=== PATIENT | female | born 1975 | race Caucasian/White ===

== ENCOUNTER → 2017-03-20 | Outpatient (CLI) | payer OTHER ==
[~2017-03-20] MED LIST: ACET-2708 PO; ALPR-460 PO; AZIT-17 PO; CELE-1 PO; CETI10CA8 PO; CHOL200022 PO; CHOL200038 PO; CHOL500025 PO; CIPR-214 PO; CIPR-345 PO; CITA-139 PO; CITA-141 PO; CYCL10TA29 PO; DOCU-416 PO; DULO30CA35 PO; DULO60CA56 PO; ESC10 PO; FEXO1TAB63 PO; FLUT16SP19 NS; HYDR-4309 PO; IBUP600T22 PO; INSU100I10 SQ; INSU100I30 SQ; LEVO50TA86 PO; LEVO75TA73 PO; LISI-362 PO; LORA10CA3 PO; LOSA25TA50 PO; MELO-205 PO; METF-420 PO; NAPR500T75 PO; NITR-105 PO; ONDA4TAB97 PO; OXYB15TA17 PO; OXYC-865 PO; PEN1DIS. MC; PER PO; PHEN100T27 PO; PREG100C44 PO; PREG50CA48 PO; SULF-198 PO; TAMS0.4C25 PO; TRAM-420 PO; TRIA15OI20 TP
[2017-03-20 08:47] LABS: PLATELET COUNT, AUTOMATED 226 K/uL (150-450)
[2017-03-20 10:24] LABS: LDL CHOLESTEROL 126 mg/dl
== END ==
LOC: LAB 07:52
PROVIDERS: ATTEND Internal Medicine
DX: I10 Essential (primary) hypertension (principal); R74.8 Abnormal levels of other serum enzymes; E11.9 Type 2 diabetes mellitus without complications; Z79.4 Long term (current) use of insulin; R53.81 Other malaise; L40.9 Psoriasis, unspecified; R10.11 Right upper quadrant pain
CPT/HCPCS: 36415; 81001; 82040; 82150; 82247; 82310; 82374; 82435; 82465; 82565; 82947; 83036; 83690; 83718; 84075; 84132; 84155; 84295; 84439; 84443; 84450; 84460; 84478; 84481; 84520; 84550; 85025; 85651; 86140

== ENCOUNTER 2017-03-28 19:08 | Emergency (ER) | payer OTHER ==
[~2017-03-28] VITALS: Ht 162.6 cm; Wt 113.4 kg
[2017-03-28] MEDS ORDERED: ONDANSETRON 4 MG/2 ML VIAL IVP ONE (19:45)
--- NOTE | 2017-03-28 19:49 | ER Report ---
History and Physical Time Seen By MD: 19:15 Hx. of Stated Complaint: ATE AT [employer] FOR DINNER. WALKED AROUND [facility]. WENT TO BATHROOM THERE. RIGHT SIDED PAIN. PT REPORTS SHE HAS NO GALLBLADDER. HPI/ROS CHIEF COMPLAINT: Abdominal pain HISTORY OF PRESENT ILLNESS: Patient is a 41-year-old female who presents to ED with complaint of abdominal pain that started about an hour ago. She states that she ate at a restaurant and had some buffalo wings and other fried food and then went to [facility] afterwards and noted that she was having abdominal pain and did have an emesis episode as well. She states that she had a normal bowel movement there. She came to emergency department for evaluation and had another bowel movement here. She states the pain is primarily on the right side of her abdomen. She states that she has had a cholecystectomy as well as a hysterectomy in the past. She denies any fever. She denies any hematuria or dysuria. REVIEW OF SYSTEMS: Constitutional: No fever, no chills. Eyes: No discharge. ENT: No sore throat. Cardiovascular: No chest pain, no palpitations. Respiratory: No cough, no shortness of breath. Gastrointestinal: See history of present illness. Genitourinary: No hematuria. Musculoskeletal: No back pain. Skin: No rashes. Neurological: No headache. Allergies: Coded Allergies: metformin (Verified Allergy, Intermediate, nausea, lightheadedness, 03/28/17 ) Uncoded Allergies: SAGEBRUSH (Allergy, Intermediate, 01/31/15) CATS (Adverse Reaction, Mild, 01/31/15) Home Meds Active Scripts Insulin Glargine,Hum.rec.anlog (Basaglar Kwikpen U-100) 100 Unit/Ml (3 Ml) Insuln.pen, 50 UNITS SQ HS, #2 BOX 2 Refills add 2 units every 3 days until Blood glucose 80-130 Prov:DERREK SIDHU MD 03/25/17 Levothyroxine Sodium (LEVOTHYROXINE SODIUM) 75 Mcg Tablet, 75 MCG PO QDAY, #90 TAB 2 Refills Prov:DERREK SIDHU MD 03/20/17 Losartan Potassium (LOSARTAN POTASSIUM) 25 Mg Tablet, 25 MG PO QDAY, #90 TAB 4 Refills Prov:DERREK SIDHU MD 02/21/17 Celecoxib (CELEBREX) 200 Mg Capsule, 200 MG PO QDAY, #30 CAPSULE 1 Refill Prov:DERREK SIDHU MD 01/28/17 Escitalopram Oxalate (LEXAPRO) 10 Mg Tab, 1 TAB PO QDAY, #30 TAB 6 Refills Prov:DERREK SIDHU MD 11/20/16 Reported Medications Cholecalciferol (Vitamin D3) (VITAMIN D3) 2,000 Unit Tablet, 1 TAB PO QDAY 08/26/16 Discontinued Scripts Fluticasone Prop 50 Mcg Ns (FLONASE 50 MCG NS) 16 Gm Dexter.susp, 2 SPRAYS NS QDAY, #1 BOT Prov:DERREK SIDHU MD 11/20/16 Reviewed Nurses Notes: Yes Old Medical Records Reviewed: Yes Hx Smoking: No Smoking Status: Never Smoker Exposure to Second Hand Smoke?: No Hx Substance Use Disorder: No Hx Alcohol Use: No Constitutional Vital Sign - Last 24 Hours 03/28/17 03/28/17 03/28/17 03/28/17 19:12 19:18 20:08 20:13 Temp 97.9 Pulse 67 64 65 Resp 24 B/P (MAP) 104/61 (75) 104/61 Pulse Ox 98 98 95 O2 Delivery Room Air 03/28/17 03/28/17 20:28 20:43 Pulse 74 Pulse Ox 96 92 Intake and Output 03/28/17 03/28/17 03/29/17 15:00 23:00 07:00 Intake Total 1000 ml Balance 1000 ml Physical Exam General Appearance: The patient is alert, has no immediate need for airway protection and no signs of toxicity. Patient appears to be in no acute distress. Eyes: Pupils equal and round no pallor or injection. ENT, Mouth: Mucous membranes are moist. Respiratory: There are no retractions, lungs are clear to auscultation. Cardiovascular: Regular rate and rhythm. Gastrointestinal: There is left lower quadrant right lower quadrant tenderness with palpation. No rebound or guarding is present. Normal bowel sounds in all 4 quadrants. Skin: Warm and dry, no rashes. Musculoskeletal: Neck is supple non tender. Extremities are nontender, nonswollen and have full range of motion. DIFFERENTIAL DIAGNOSIS: After history and physical exam differential diagnosis was considered for abdominal pain including but not limited to appendicitis, cholecystitis, gastritis and urinary tract infection. Medical Decision Making Data Points Result Diagram: 03/28/17195403/28/171954 Laboratory Hematology Test 03/28/17 19:55 03/28/17 21:30 Red Blood Count 4.58 M/uL (4.17-5.56) Mean Corpuscular Volume 87.0 fL (80.0-96.0) Mean Corpuscular Hemoglobin 30.2 pg (26.0-33.0) Mean Corpuscular Hemoglobin Concent 34.8 g/dL (32.0-36.0) Red Cell Distribution Width 12.9 % (11.5-14.5) Mean Platelet Volume 9.8 fL (7.2-11.1) Neutrophils (%) (Auto) 71.9 % (39.4-72.5) Lymphocytes (%) (Auto) 20.6 % (17.6-49.6) Monocytes (%) (Auto) 6.1 % (4.1-12.4) Eosinophils (%) (Auto) 0.9 % (0.4-6.7) Basophils (%) (Auto) 0.5 % (0.3-1.4) Nucleated RBC Relative Count (auto) 0.0 /100WBC Neutrophils # (Auto) 7.7 K/uL (2.0-7.4) Lymphocytes # (Auto) 2.2 K/uL (1.3-3.6) Monocytes # (Auto) 0.7 K/uL (0.3-1.0) Eosinophils # (Auto) 0.1 K/uL (0.0-0.5) Basophils # (Auto) 0.1 K/uL (0.0-0.1) Nucleated RBC Absolute Count (auto) 0.00 K/uL Sodium Level 141 mmol/L (137-145) Potassium Level 3.4 mmol/L (3.5-5.0) Chloride Level 106 mmol/L (98-107) Carbon Dioxide Level 21 mmol/L (22-31) Blood Urea Nitrogen 15 mg/dl (7-18) Creatinine 0.90 mg/dl (0.52-1.04) Glomerular Filtration Rate Calc > 60.0 Random Glucose 129 mg/dl (75-110) Calcium Level 8.9 mg/dl (8.4-10.2) Total Bilirubin 0.6 mg/dl (0.2-1.3) Aspartate Amino Transf (AST/SGOT) 107 U/L (0-35) Alanine Aminotransferase (ALT/SGPT) 66 U/L (0-56) Alkaline Phosphatase 112 U/L (0-126) Total Protein 7.3 gm/dl (6.3-8.2) Albumin 3.9 g/dl (3.5-5.0) Lipase 124 U/L (23-300) Urine Color Yellow Urine Clarity Clear Urine pH 5.0 pH (4.8-9.5) Urine Specific [place] 1.048 Urine Protein Negative mg/dL (NEGATIVE) Urine Glucose (UA) Negative mg/dL (NEGATIVE) Urine Ketones Negative mg/dL (NEGATIVE) Urine Blood Negative (NEGATIVE) Urine Nitrite Negative (NEGATIVE) Urine Bilirubin Negative (NEGATIVE) Urine Urobilinogen 4.0 mg/dL (0.2-1.9) Urine Leukocyte Esterase Negative (NEGATIVE) Urine RBC None /HPF (0-2/HPF) Urine WBC 1 /HPF (0-5/HPF) Urine Squamous Epithelial Cells Many /LPF (</=FEW) Urine Amorphous Crystals Few /HPF Urine Bacteria Few /HPF (NONE-FEW) Urine Mucus None /HPF (NONE-FEW) Chemistry Test 03/28/17 19:55 03/28/17 21:30 White Blood Count 10.7 k/uL (4.5-11.0) Red Blood Count 4.58 M/uL (4.17-5.56) Hemoglobin 13.9 g/dL (12.0-16.0) Hematocrit 39.8 % (34.0-47.0) Mean Corpuscular Volume 87.0 fL (80.0-96.0) Mean Corpuscular Hemoglobin 30.2 pg (26.0-33.0) Mean Corpuscular Hemoglobin Concent 34.8 g/dL (32.0-36.0) Red Cell Distribution Width 12.9 % (11.5-14.5) Platelet Count 212 K/uL (150-450) Mean Platelet Volume 9.8 fL (7.2-11.1) Neutrophils (%) (Auto) 71.9 % (39.4-72.5) Lymphocytes (%) (Auto) 20.6 % (17.6-49.6) Monocytes (%) (Auto) 6.1 % (4.1-12.4) Eosinophils (%) (Auto) 0.9 % (0.4-6.7) Basophils (%) (Auto) 0.5 % (0.3-1.4) Nucleated RBC Relative Count (auto) 0.0 /100WBC Neutrophils # (Auto) 7.7 K/uL (2.0-7.4) Lymphocytes # (Auto) 2.2 K/uL (1.3-3.6) Monocytes # (Auto) 0.7 K/uL (0.3-1.0) Eosinophils # (Auto) 0.1 K/uL (0.0-0.5) Basophils # (Auto) 0.1 K/uL (0.0-0.1) Nucleated RBC Absolute Count (auto) 0.00 K/uL Glomerular Filtration Rate Calc > 60.0 Calcium Level 8.9 mg/dl (8.4-10.2) Total Bilirubin 0.6 mg/dl (0.2-1.3) Aspartate Amino Transf (AST/SGOT) 107 U/L (0-35) Alanine Aminotransferase (ALT/SGPT) 66 U/L (0-56) Alkaline Phosphatase 112 U/L (0-126) Total Protein 7.3 gm/dl (6.3-8.2) Albumin 3.9 g/dl (3.5-5.0) Lipase 124 U/L (23-300) Urine Color Yellow Urine Clarity Clear Urine pH 5.0 pH (4.8-9.5) Urine Specific [place] 1.048 Urine Protein Negative mg/dL (NEGATIVE) Urine Glucose (UA) Negative mg/dL (NEGATIVE) Urine Ketones Negative mg/dL (NEGATIVE) Urine Blood Negative (NEGATIVE) Urine Nitrite Negative (NEGATIVE) Urine Bilirubin Negative (NEGATIVE) Urine Urobilinogen 4.0 mg/dL (0.2-1.9) Urine Leukocyte Esterase Negative (NEGATIVE) Urine RBC None /HPF (0-2/HPF) Urine WBC 1 /HPF (0-5/HPF) Urine Squamous Epithelial Cells Many /LPF (</=FEW) Urine Amorphous Crystals Few /HPF Urine Bacteria Few /HPF (NONE-FEW) Urine Mucus None /HPF (NONE-FEW) Urinalysis Test 03/28/17 21:30 Urine Color Yellow Urine Clarity Clear Urine pH 5.0 pH (4.8-9.5) Urine Specific [place] 1.048 Urine Protein Negative mg/dL (NEGATIVE) Urine Glucose (UA) Negative mg/dL (NEGATIVE) Urine Ketones Negative mg/dL (NEGATIVE) Urine Blood Negative (NEGATIVE) Urine Nitrite Negative (NEGATIVE) Urine Bilirubin Negative (NEGATIVE) Urine Urobilinogen 4.0 mg/dL (0.2-1.9) Urine Leukocyte Esterase Negative (NEGATIVE) Urine RBC None /HPF (0-2/HPF) Urine WBC 1 /HPF (0-5/HPF) Urine Squamous Epithelial Cells Many /LPF (</=FEW) Urine Amorphous Crystals Few /HPF Urine Bacteria Few /HPF (NONE-FEW) Urine Mucus None /HPF (NONE-FEW) EKG/Imaging Imaging Abdomen/Pelvis CT: Per radiology no acute intraabdominal issue. ED Course/Re-evaluation ED Course Will obtain labs. Patient will be given 1 L normal saline bolus as well as 4 mg IV Zofran. serial abdominal exam revealed right lower quadrant and left lower quadrant abdominal pain with palpation. Patient does not having any pain right upper quadrant. 03/28/2017 9:56:25 pm - discussed all labs and imaging with patient. Everything is essentially normal except for slightly elevated liver enzymes. It does appear that she did have some slightly elevated liver enzymes last year as well. Advised to have this rechecked. Will send her home with some Zofran for nausea. Discussed with her that if she does have any increase in pain or other concerns she may return the emergency Department. She should follow-up with primary care provider. Decision to Disposition Date: Mar 28, 2017 Decision to Disposition Time: 21:57 Depart Departure Latest Vital Signs Vital Signs Date Time Temp Pulse Resp B/P (MAP) Pulse Ox O2 Delivery O2 Flow Rate FiO2 03/28/17 20:43 74 92 03/28/17 19:18 97.9 24 104/61 Room Air Impression: Primary Impression: Abdominal pain Additional Impression: Nausea and vomiting Condition: Improved Disposition: HOME OR SELF-CARE Referrals: DERREK SIDHU MD (PCP) New Scripts Ondansetron (ZOFRAN ODT) 4 Mg Tab.rapdis 4 MG PO Q6H Y for NAUSEA/VOMITING, #8 TAB.TAIWO Prov: CHOLO LOBO PA-C 03/28/17 Patient Instructions: Abdominal Pain (ED), Acute Nausea and Vomiting (ED) Additional Instructions: Stay well-hydrated. Follow-up with primary care provider in 2-3 days. If having any worsening concerning symptoms may return to the emergency department. Problem Qualifiers Primary Impression: Abdominal pain Abdominal location: generalized Qualified Codes: R10.84 - Generalized abdominal pain Additional Impression: Nausea and vomiting Vomiting type: unspecified Vomiting Intractability: unspecified Qualified Codes: R11.2 - Nausea with vomiting, unspecified CHOLO LOBO PA-C Mar 28, 2017 19:49
[2017-03-28] MEDS ORDERED: NS(*) 0.9% 1000 ML BAG 1,000 ML IV ONE (19:50)
[2017-03-28 20:04] LABS: PLATELET COUNT, AUTOMATED 212 K/uL (150-450)
[2017-03-28] MEDS ORDERED: NS 0.9% 20 ML SDV 60 ML ONE (20:54)
[2017-03-28] MEDS ORDERED: IOPAMIDOL 76% 75 ML INFUS BTL 75 ML ONE (20:54)
--- NOTE | 2017-03-28 21:53 | RADIOLOGY IMAGING REPORT ---
FACILITY: [facility] PATIENT NAME: Shea Mendsoa : 1975 MR: [id number] V: [id number] EXAM DATE: ORDERING PHYSICIAN: CHOLO LOBO TECHNOLOGIST: Location: [facility] - [place] Patient: Shea Mendosa : 1975 Visit/Account:[id number] Date of Sevice: 03/28/2017 EXAMINATION: CT abdomen and pelvis with IV contrast HISTORY: Right lower quadrant and left lower quadrant abdominal pain. TECHNIQUE: Axial CT images of the abdomen and pelvis were obtained with IV contrast, with coronal a nd sagittal 2D reconstructed images. One of the following dose optimization techniques was utilized in the performance of this exam: Autom ated exposure control; adjustment of the mA and/or kV according to the patient's size; or use of an i terative reconstruction technique. Specific details can be referenced in the facility's radiology C T exam operational policy. Contrast: 75 mL of IV [id number]. COMPARISON: 10/09/2016. FINDINGS: Liver: Negative. Gallbladder and bile ducts: Cholecystectomy. No bile duct dilatation. There is slight pneumobilia al harini the central ducts. Spleen: Mild splenomegaly, measuring 15 cm in length. The spleen enhances normally. Pancreas: Negative. Adrenal glands: Negative. Kidneys: Negative. No hydronephrosis or urinary calculi. Bowel and peritoneum: The small bowel and colon are normal in caliber, without evidence of obstructi on or any focal inflammatory process. No bowel wall thickening. Unremarkable appendix in the right lo wer quadrant. No free fluid or free intraperitoneal air. Pelvic structures: Hysterectomy. Lymph node assessment: Negative. Vessels: Negative. Musculoskeletal: Negative. Body wall: Negative. Lung bases: Negative. IMPRESSION: 1. No CT evidence of acute intra-abdominal pathology. 2. Unremarkable appendix. 3. Prior cholecystectomy and hysterectomy. 4. Mild splenomegaly. Report Dictated By: Rajinder Saenz MD at 03/28/2017 9:46 PM Report E-Signed By: Rajnider Saenz MD at 03/28/2017 9:50 PM WSN:[id number]
[2017-03-28] MEDS ORDERED: ONDA4TAB PO (21:59)
[2017-03-28 22:09] VITALS: BP 132/82
== END 2017-03-28 22:15 | disposition home or self-care (01) ==
LOC: ER 19:18
DX: R10.84 Generalized abdominal pain (principal); R11.2 Nausea with vomiting, unspecified
CPT/HCPCS: 74177; 81001; 83690; 85025; 96361; 96374; 99284; J2405; J7030; J7050; Q9967; 82040; 82247; 82310; 82374; 82435; 82565; 82947; 84075; 84132; 84155; 84295; 84450; 84460; 84520

== ENCOUNTER → 2017-04-07 | Outpatient (CLI) | payer OTHER ==
[~2017-04-07] MED LIST changes: +ONDA4TAB PO
== END ==
LOC: LAB 10:30
PROVIDERS: ATTEND Internal Medicine
DX: D86.9 Sarcoidosis, unspecified (principal); E11.9 Type 2 diabetes mellitus without complications; R53.81 Other malaise; Z79.4 Long term (current) use of insulin; A08.4 Viral intestinal infection, unspecified; R74.8 Abnormal levels of other serum enzymes
CPT/HCPCS: 36415; 82040; 82247; 82310; 82374; 82435; 82565; 82947; 84075; 84132; 84155; 84295; 84443; 84450; 84460; 84520

== ENCOUNTER → 2017-04-14 | Outpatient (CLI) | payer OTHER | LOC: LAB 16:14 | PROVIDERS: ATTEND Internal Medicine | DX: R74.8 Abnormal levels of other serum enzymes (principal) | CPT/HCPCS: 36415; 80074; 82040; 82150; 82247; 82310; 82374; 82435; 82565; 82947; 83690; 84075; 84132; 84155; 84295; 84450; 84460; 84520 ==

== ENCOUNTER → 2017-04-17 | Outpatient (CLI) | payer OTHER ==
--- NOTE | 2017-04-17 10:30 | RADIOLOGY IMAGING REPORT ---
FACILITY: [facility] - [place] PATIENT NAME: Shea Mendosa : 1975 MR: [id number] V: [id number] EXAM DATE: ORDERING PHYSICIAN: DERREK SIDHU TECHNOLOGIST: Location: [facility] [place] Patient: Shea Mendosa : 1975 Visit/Account:[id number] Date of Sevice: 04/17/2017 LIVER HISTORY: Elevated LFTs, right upper quadrant pain x2 weeks COMPARISON: CT abdomen pelvis March 28, 2017 FINDINGS: Gallbladder: Prior cholecystectomy Liver: There is coarse echogenicity throughout the liver although discrete mass is not demonstrated Common duct: Normal, 4.3 mm diameter. Pancreas: Partially obscured by bowel, visualized aspects unremarkable. Right kidney: There is a lobular contour to the right kidney. No evidence of hydronephrosis. The ri ght kidney measures 10.8 cm in length Upper abdominal aorta and IVC: Patent. Ascites: None visualized. IMPRESSION: Post surgical changes from cholecystectomy There is coarse echotexture throughout the liver which can be seen with fatty infiltration or other i nfiltrative process although discrete mass is not demonstrated Report Dictated By: Muna Cunningham MD at 04/17/2017 10:20 AM Report E-Signed By: Muna Cunningham MD at 04/17/2017 10:23 AM WSN:[email or web address]
== END ==
LOC: US 00:47
PROVIDERS: ATTEND Internal Medicine
DX: K76.0 Fatty (change of) liver, not elsewhere classified (principal); Z90.49 Acquired absence of other specified parts of digestive tract
CPT/HCPCS: 76705; 81001

== ENCOUNTER → 2017-04-28 | Outpatient (CLI) | payer OTHER ==
[~2017-04-28] MED LIST changes: +LEVO-85 PO
== END ==
LOC: LAB 16:22
PROVIDERS: ATTEND Internal Medicine
DX: R74.8 Abnormal levels of other serum enzymes (principal); R10.11 Right upper quadrant pain
CPT/HCPCS: 36415; 82040; 82247; 82310; 82374; 82435; 82565; 82947; 83516; 84075; 84132; 84155; 84295; 84450; 84460; 84520; 86038

== ENCOUNTER → 2017-05-05 | Outpatient (CLI) | payer OTHER ==
[~2017-05-05] MED LIST changes: +IOPAMIDOL 76% 75 ML INFUS BTL 75 ML ONE
--- NOTE | 2017-05-05 16:13 | RADIOLOGY IMAGING REPORT ---
[place] [facility] [place] NAME: Shea Mendosa : 1975 MR: [id number] V: [id number] EXAM DATE: ORDERING PHYSICIAN: DERREK SIDHU TECHNOLOGIST: Location: [facility] Patient: Shea Mendosa : 1975 Visit/Account:[id number] Date of Sevice: 05/05/2017 EXAMINATION: Head CT without intravenous contrast History: Headache TECHNIQUE: Contiguous axial images were obtained from the skull base to the vertex without intraven ous contrast. One of the following dose optimization techniques was utilized in the performance of th is exam: Automated exposure control; adjustment of the mA and/or kV according to the patient's size; or use of an iterative reconstruction technique. Specific details can be referenced in the facility 's radiology CT exam operational policy. COMPARISON STUDIES: none FINDINGS: Visualized mastoid air cells / paranasal sinuses: negative Calvarium and scalp: negative White matter: negative Dural venous sinuses / arterial structures: negative Ventricles / sulci / fissures: negative Masses / hemorrhage / midline shift: negative Extra-axial spaces: negative IMPRESSION: Normal head CT. No evidence of a mass, acute ischemia or hemorrhage. Report Dictated By: Masoud Matson MD at 05/05/2017 4:06 PM Report E-Signed By: Masoud Matson MD at 05/05/2017 4:09 PM WSN:[id number]
== END ==
LOC: CT 09:56
PROVIDERS: ATTEND Internal Medicine
DX: G44.209 Tension-type headache, unspecified, not intractable (principal); E11.9 Type 2 diabetes mellitus without complications
CPT/HCPCS: 70470; Q9967

== ENCOUNTER → 2017-05-22 | Outpatient (CLI) | payer OTHER ==
[~2017-05-22] MED LIST changes: +ESCI20TA8 PO; +GABA-547 PO; +HYDR-4225 PO; -IOPAMIDOL 76% 75 ML INFUS BTL 75 ML ONE; +LEVO-3 PO
[2017-05-22 17:13] LABS: PLATELET COUNT, AUTOMATED 245 K/uL (150-450)
== END ==
LOC: LAB 16:47
PROVIDERS: ATTEND Internal Medicine
DX: R51 Headache (principal); E11.9 Type 2 diabetes mellitus without complications; R74.8 Abnormal levels of other serum enzymes; I10 Essential (primary) hypertension; E55.9 Vitamin D deficiency, unspecified; G25.81 Restless legs syndrome
CPT/HCPCS: 36415; 82040; 82247; 82306; 82310; 82374; 82435; 82565; 82947; 83036; 84075; 84132; 84155; 84295; 84439; 84443; 84450; 84460; 84520; 85025; 85651; 86140

== ENCOUNTER 2017-07-25 07:28 | Emergency (ER) | payer OTHER ==
[~2017-07-25 07:28] MED LIST changes: -CITA-139 PO; +CITA-145 PO; -METF-420 PO; +METF-421 PO
[2017-07-25] MEDS ORDERED: NS(*) 0.9% 1000 ML BAG 1,000 ML IV ONE (07:58)
[2017-07-25] MEDS ORDERED: KETOROLAC 30 MG/ML VIAL IVP ONE (08:00)
[2017-07-25] MEDS ORDERED: ONDANSETRON 4 MG/2 ML VIAL IVP ONE (08:00)
--- NOTE | 2017-07-25 08:05 | ER Report ---
History and Physical Time Seen By MD: 07:45 Hx. of Stated Complaint: RIGHT FLANK AND RIGHT ABDOMINAL PAIN. N/V HPI/ROS This is a 41-year-old female with multiple chronic medical problems who presents to the emergency department with right flank pain as well as nausea and vomiting. She has had kidney stones in the past requiring lithotripsy, and states that the pain feels somewhat similar. She has not had kidney stones on the right side previously however. She denies fever or chills. No dysuria or hematuria. She is status post laparoscopic cholecystectomy in 2009. She does not drink alcohol. She takes Tylenol PM every night. Denies any trauma, and no travel outside the [place] recently. Remainder of the 14 system rev: Yes Allergies: Coded Allergies: metformin (Verified Allergy, Intermediate, nausea, lightheadedness, 07/25/17 ) acetaminophen (Verified Allergy, Mild, ITCHING, 07/25/17) oxycodone (Verified Allergy, Mild, ITCHING, 07/25/17) Uncoded Allergies: SAGEBRUSH (Allergy, Intermediate, 01/31/15) CATS (Adverse Reaction, Mild, 01/31/15) Home Meds Active Scripts Levothyroxine Sodium (LEVOTHYROXINE SODIUM) 100 Mcg Tablet, 100 MCG PO QDAY, # 30 TAB 6 Refills Prov:DERREK SIDHU MD 05/23/17 Escitalopram Oxalate (ESCITALOPRAM OXALATE) 20 Mg Tablet, 20 MG PO QDAY, #30 TAB 6 Refills Prov:DERREK SIDHU MD 05/22/17 Insulin Glargine,Hum.rec.anlog (Basaglar Kwikpen U-100) 100 Unit/Ml (3 Ml) Insuln.pen, 50 UNITS SQ HS, #2 BOX 2 Refills add 2 units every 3 days until Blood glucose 80-130 Prov:DERREK SIDHU MD 03/25/17 Losartan Potassium (LOSARTAN POTASSIUM) 25 Mg Tablet, 25 MG PO QDAY, #90 TAB 4 Refills Prov:DERREK SIDHU MD 02/21/17 Reported Medications Cholecalciferol (Vitamin D3) (VITAMIN D3) 2,000 Unit Tablet, 1 TAB PO QDAY 08/26/16 Discontinued Scripts Hydroxyzine Hcl (HYDROXYZINE HCL) 25 Mg Tablet, 1 TAB PO 2-3XD Y for itching, # 30 TAB Prov:DERREK SIDHU MD 05/22/17 Gabapentin (GABAPENTIN) 100 Mg Capsule, 1-3 CAP PO QHS, #60 CAPSULE 3 Refills Prov:DERREK SIDHU MD 05/22/17 Reviewed Nurses Notes: Yes Old Medical Records Reviewed: Yes Hx Smoking: No Smoking Status: Never Smoker Exposure to Second Hand Smoke?: No Hx Substance Use Disorder: No Hx Alcohol Use: No Constitutional Vital Sign - Last 24 Hours 07/25/17 07/25/17 07/25/17 07/25/17 07:34 07:37 08:00 08:30 Temp 98.1 Pulse 82 Resp 18 B/P (MAP) 116/65 116/65 (82) 108/69 (82) 107/69 (82) Pulse Ox 100 O2 Delivery Room Air 07/25/17 07/25/17 07/25/17 09:00 09:30 10:00 B/P (MAP) 111/66 (81) 109/71 (84) 107/67 (80) Intake and Output 07/25/17 07/25/17 07/26/17 14:59 22:59 06:59 Intake Total 1000 ml Balance 1000 ml Physical Exam General Appearance: The patient is alert, has no immediate need for airway protection and no current signs of toxicity. Eyes: Pupils equal and round no injection. Respiratory: Chest is non tender, lungs are clear to auscultation. Cardiac: regular rate and rhythm Gastrointestinal: Abdomen is soft and non tender, no masses, bowel sounds normal. Musculoskeletal: Right flank tenderness to palpation Extremities have full range of motion and are non tender. Skin: No rashes or lesions. DIFFERENTIAL DIAGNOSIS: After history and physical exam differential diagnosis was considered for abdominal pain in a female including but not limited to ovarian cyst, pelvic inflammatory disease, ovarian torsion, urinary tract infection, and appendicitis, retained stone, portal vein thrombosis, tylenol overdose Medical Decision Making Data Points Result Diagram: 07/25/17 0743 07/25/17 0743 Laboratory Hematology Test 07/25/17 07:39 07/25/17 07:43 07/25/17 10:35 Urine Color Georgie Urine Clarity Clear Urine pH 6.0 pH (4.8-9.5) Urine Specific [place] 1.025 Urine Protein Negative mg/dL (NEGATIVE) Urine Glucose (UA) Negative mg/dL (NEGATIVE) Urine Ketones Negative mg/dL (NEGATIVE) Urine Blood Negative (NEGATIVE) Urine Nitrite Negative (NEGATIVE) Urine Bilirubin Small (NEGATIVE) Urine Urobilinogen 0.2 mg/dL (0.2-1.9) Urine Leukocyte Esterase Negative (NEGATIVE) Urine RBC 1 /HPF (0-2/HPF) Urine WBC 2 /HPF (0-5/HPF) Urine Squamous Epithelial Cells Many /LPF (</=FEW) Urine Calcium Oxalate Crystals Moderate /HPF (NONE) Urine Bacteria Negative /HPF (NONE-FEW) Urine Mucus None /HPF (NONE-FEW) Red Blood Count 4.69 M/uL (4.17-5.56) Mean Corpuscular Volume 86.5 fL (80.0-96.0) Mean Corpuscular Hemoglobin 30.6 pg (26.0-33.0) Mean Corpuscular Hemoglobin Concent 35.4 g/dL (32.0-36.0) Red Cell Distribution Width 13.6 % (11.5-14.5) Mean Platelet Volume 9.3 fL (7.2-11.1) Neutrophils (%) (Auto) 87.6 % (39.4-72.5) Lymphocytes (%) (Auto) 4.3 % (17.6-49.6) Monocytes (%) (Auto) 5.3 % (4.1-12.4) Eosinophils (%) (Auto) 1.2 % (0.4-6.7) Basophils (%) (Auto) 1.6 % (0.3-1.4) Nucleated RBC Relative Count (auto) 0.0 /100WBC Neutrophils # (Auto) 7.5 K/uL (2.0-7.4) Lymphocytes # (Auto) 0.4 K/uL (1.3-3.6) Monocytes # (Auto) 0.5 K/uL (0.3-1.0) Eosinophils # (Auto) 0.1 K/uL (0.0-0.5) Basophils # (Auto) 0.1 K/uL (0.0-0.1) Nucleated RBC Absolute Count (auto) 0.00 K/uL Peripheral Blood Smear Yes Y/N Prothrombin Time 13.0 seconds (12.0-14.4) Prothromb Time International Ratio 0.98 Activated Partial Thromboplast Time 26 seconds (23-35) Sodium Level 140 mmol/L (137-145) Potassium Level 3.8 mmol/L (3.5-5.0) Chloride Level 104 mmol/L (98-107) Carbon Dioxide Level 26 mmol/L (22-31) Blood Urea Nitrogen 16 mg/dl (7-18) Creatinine 0.90 mg/dl (0.52-1.04) Glomerular Filtration Rate Calc > 60.0 Random Glucose 120 mg/dl (75-110) Calcium Level 9.0 mg/dl (8.4-10.2) Total Bilirubin 2.7 mg/dl (0.2-1.3) Direct Bilirubin 1.9 mg/dl (0.0-0.3) Aspartate Amino Transf (AST/SGOT) 371 U/L (0-35) Alanine Aminotransferase (ALT/SGPT) 235 U/L (0-56) Alkaline Phosphatase 149 U/L (0-126) Total Protein 7.0 gm/dl (6.3-8.2) Albumin 4.0 g/dl (3.5-5.0) Lipase 215 U/L (23-300) Acetaminophen Level < 10 ug/ml Hepatitis C Antibody Negative (NEGATIVE) Chemistry Test 07/25/17 07:39 07/25/17 07:43 07/25/17 10:35 Urine Color Georgie Urine Clarity Clear Urine pH 6.0 pH (4.8-9.5) Urine Specific [place] 1.025 Urine Protein Negative mg/dL (NEGATIVE) Urine Glucose (UA) Negative mg/dL (NEGATIVE) Urine Ketones Negative mg/dL (NEGATIVE) Urine Blood Negative (NEGATIVE) Urine Nitrite Negative (NEGATIVE) Urine Bilirubin Small (NEGATIVE) Urine Urobilinogen 0.2 mg/dL (0.2-1.9) Urine Leukocyte Esterase Negative (NEGATIVE) Urine RBC 1 /HPF (0-2/HPF) Urine WBC 2 /HPF (0-5/HPF) Urine Squamous Epithelial Cells Many /LPF (</=FEW) Urine Calcium Oxalate Crystals Moderate /HPF (NONE) Urine Bacteria Negative /HPF (NONE-FEW) Urine Mucus None /HPF (NONE-FEW) White Blood Count 8.5 k/uL (4.5-11.0) Red Blood Count 4.69 M/uL (4.17-5.56) Hemoglobin 14.3 g/dL (12.0-16.0) Hematocrit 40.5 % (34.0-47.0) Mean Corpuscular Volume 86.5 fL (80.0-96.0) Mean Corpuscular Hemoglobin 30.6 pg (26.0-33.0) Mean Corpuscular Hemoglobin Concent 35.4 g/dL (32.0-36.0) Red Cell Distribution Width 13.6 % (11.5-14.5) Platelet Count 203 K/uL (150-450) Mean Platelet Volume 9.3 fL (7.2-11.1) Neutrophils (%) (Auto) 87.6 % (39.4-72.5) Lymphocytes (%) (Auto) 4.3 % (17.6-49.6) Monocytes (%) (Auto) 5.3 % (4.1-12.4) Eosinophils (%) (Auto) 1.2 % (0.4-6.7) Basophils (%) (Auto) 1.6 % (0.3-1.4) Nucleated RBC Relative Count (auto) 0.0 /100WBC Neutrophils # (Auto) 7.5 K/uL (2.0-7.4) Lymphocytes # (Auto) 0.4 K/uL (1.3-3.6) Monocytes # (Auto) 0.5 K/uL (0.3-1.0) Eosinophils # (Auto) 0.1 K/uL (0.0-0.5) Basophils # (Auto) 0.1 K/uL (0.0-0.1) Nucleated RBC Absolute Count (auto) 0.00 K/uL Peripheral Blood Smear Yes Y/N Prothrombin Time 13.0 seconds (12.0-14.4) Prothromb Time International Ratio 0.98 Activated Partial Thromboplast Time 26 seconds (23-35) Glomerular Filtration Rate Calc > 60.0 Calcium Level 9.0 mg/dl (8.4-10.2) Total Bilirubin 2.7 mg/dl (0.2-1.3) Direct Bilirubin 1.9 mg/dl (0.0-0.3) Aspartate Amino Transf (AST/SGOT) 371 U/L (0-35) Alanine Aminotransferase (ALT/SGPT) 235 U/L (0-56) Alkaline Phosphatase 149 U/L (0-126) Total Protein 7.0 gm/dl (6.3-8.2) Albumin 4.0 g/dl (3.5-5.0) Lipase 215 U/L (23-300) Acetaminophen Level < 10 ug/ml Hepatitis C Antibody Negative (NEGATIVE) Coagulation Test 07/25/17 07:43 Prothrombin Time 13.0 seconds Prothromb Time International Ratio 0.98 Activated Partial Thromboplast Time 26 seconds Toxicology Test 07/25/17 07:43 Acetaminophen Level < 10 ug/ml Urinalysis Test 07/25/17 07:39 Urine Color Georgie Urine Clarity Clear Urine pH 6.0 pH (4.8-9.5) Urine Specific [place] 1.025 Urine Protein Negative mg/dL (NEGATIVE) Urine Glucose (UA) Negative mg/dL (NEGATIVE) Urine Ketones Negative mg/dL (NEGATIVE) Urine Blood Negative (NEGATIVE) Urine Nitrite Negative (NEGATIVE) Urine Bilirubin Small (NEGATIVE) Urine Urobilinogen 0.2 mg/dL (0.2-1.9) Urine Leukocyte Esterase Negative (NEGATIVE) Urine RBC 1 /HPF (0-2/HPF) Urine WBC 2 /HPF (0-5/HPF) Urine Squamous Epithelial Cells Many /LPF (</=FEW) Urine Calcium Oxalate Crystals Moderate /HPF (NONE) Urine Bacteria Negative /HPF (NONE-FEW) Urine Mucus None /HPF (NONE-FEW) EKG/Imaging Imaging Results: CT scan of the abdomen/pelvis was obtained. The results of the study are normal. The study was read by the radiologist. I viewed the images myself on the PACS system. ED Course/Re-evaluation Decision to Disposition Date: Jul 25, 2017 Decision to Disposition Time: 11:19 Depart Departure Latest Vital Signs Vital Signs Date Time Temp Pulse Resp B/P (MAP) Pulse Ox O2 Delivery O2 Flow Rate FiO2 07/25/17 10:00 107/67 (80) 07/25/17 07:34 98.1 82 18 100 Room Air Impression: Primary Impression: Elevated liver enzymes Additional Impression: Total bilirubin, elevated Condition: Improved Disposition: HOME OR SELF-CARE Referrals: DERREK SIDHU MD (PCP) Additional Instructions: DO NOT TAKE TYLENOL OR DRINK ALCOHOL. FOLLOW UP WITH YOUR PRIMARY DOCTOR ON FRIDAY. RETURN TO THE ED FOR WORSENING SYMPTOMS. Problem Qualifiers DEVEN COX MD Jul 25, 2017 08:05
[2017-07-25 08:15] LABS: PLATELET COUNT, AUTOMATED 203 K/uL (150-450)
--- NOTE | 2017-07-25 08:51 | RADIOLOGY IMAGING REPORT ---
[place] [facility] [place] Shea Mendosa : 1975 MR: [id number] V: [id number] EXAM DATE: ORDERING PHYSICIAN: DEVEN COX TECHNOLOGIST: Location: [facility] [place] Patient: Shea Mendosa : 1975 Visit/Account:[id number] Date of Sevice: 07/25/2017 CT abdomen and pelvis without contrast Indication: Right-sided flank pain, prior history of stones. Comparison: CT examination of the abdomen and pelvis from March 2017 Technique: Axial CT images are obtained through the abdomen and pelvis. Reformatted coronal and sagit alejandro images were reviewed. IV contrast was not administered. One of the following dose optimization te chniques was utilized in the performance of this exam: Automated exposure control; adjustment of the mA and/or kV according to the patient's size; or use of an iterative reconstruction technique. Spec [facility] details can be referenced in the facility's radiology CT exam operational policy. Findings: Lower lung chang: Lung bases are clear. Evaluation of the solid organs of the abdomen is limited without IV contrast. Liver: No focal parenchymal abnormality of the liver. Biliary: Gallbladder has been surgically removed. The intra and extra hepatic biliary system is unre markable. Pancreas: Stable, no acute finding Spleen: Stable no acute finding mildly enlarged Adrenal glands: Unremarkable. Kidneys / retroperitoneum: No evidence of urolithiasis. No hydronephrosis, mass or new perinephric s tranding Bowel / peritoneum / mesenteries: Small and large intestine are without acute pathology. No dilated loop of bowel or periintestinal stranding. Lymph node assessment: No pathologic adenopathy identified. Pelvic structures: Appear unremarkable. Operative change from hysterectomy. Vessels: No significant atherosclerotic calcifications seen throughout a nonaneurysmal abdominal aort a and branches. Musculoskeletal / Body wall: No acute or aggressive osseous abnormality. IMPRESSION: 1. No evidence of acute intra-abdominal or pelvic pathology. 2. Stable examination Report Dictated By: Saeed Larson MD at 07/25/2017 8:43 AM Report E-Signed By: Saeed Larson MD at 07/25/2017 8:48 AM WSN:[facility] WE[facility]Madison
[2017-07-25 10:26] LABS: INR 0.98
--- NOTE | 2017-07-25 10:54 | RADIOLOGY IMAGING REPORT ---
FACILITY: [facility] [place] PATIENT NAME: Shea Mendosa : 1975 MR: [id number] V: [id number] EXAM DATE: ORDERING PHYSICIAN: DEVEN COX TECHNOLOGIST: Location: [facility] [place] Patient: Shea Mendosa : 1975 Visit/Account:[id number] Date of Sevice: 07/25/2017 Abdominal ultrasound Indication: Previous cholecystectomy. Elevated bilirubin. Comparison: CT examination from July 25, 2017 Findings: The liver measures 15.2 cm. Imaging of liver is mildly limited due to the submitted intercostal view s. Hepatic parenchyma appears mildly echogenic, nonspecific but indicative of fatty infiltration. N o ductal dilatation or focal mass. Contour is smooth. Portal vein is normal. Gallbladder is surgically absent. The common bile duct measures 7 mm which can be a normal finding f ollowing cholecystectomy. Pancreas is obscured by bowel gas. Aorta and IVC are secured by bowel gas. Right kidney appears sonographically normal and measures 11.0 x 5.4 x 5.7 cm. IMPRESSION: 1. Common bile duct measures 7 mm which is mildly prominent but can be a normal finding following ch olecystectomy. No evidence of intrahepatic ductal dilatation. 2. Mildly increased liver echogenicity, nonspecific finding but most commonly seen in the setting of hepatic steatosis. 3. Mildly limited exam due to body habitus. Pancreas, aorta and IVC were obscured by bowel gas. Report Dictated By: Saeed Larson MD at 07/25/2017 10:46 AM Report E-Signed By: Saeed Larson MD at 07/25/2017 10:50 AM WSN:[email or web address]
[2017-07-25 11:24] VITALS: BP 132/83
== END 2017-07-25 11:27 | disposition home or self-care (01) ==
LOC: ER 07:30
DX: R79.89 Other specified abnormal findings of blood chemistry (principal)
CPT/HCPCS: 36415; 74176; 76705; 80329; 81001; 82248; 83690; 85025; 85610; 85730; 86704; 86705; 86708; 86709; 86803; 87517; 96361; 96374; 96375; 99284; J1885; J2405; J7030; 82040; 82247; 82310; 82374; 82435; 82565; 82947; 84075; 84132; 84155; 84295; 84450; 84460; 84520

== ENCOUNTER → 2017-07-29 | Outpatient (CLI) | payer OTHER ==
[2017-07-29 15:16] LABS: PLATELET COUNT, AUTOMATED 240 K/uL (150-450)
== END ==
LOC: LAB 14:53
PROVIDERS: ATTEND Internal Medicine
DX: E11.9 Type 2 diabetes mellitus without complications (principal); R10.11 Right upper quadrant pain; R94.5 Abnormal results of liver function studies
CPT/HCPCS: 36415; 82040; 82247; 82310; 82374; 82435; 82565; 82947; 83036; 84075; 84132; 84155; 84295; 84450; 84460; 84520; 85025; 85651; 86140

== ENCOUNTER 2017-08-13 08:49 | Emergency (ER) | payer OTHER ==
[~2017-08-13 08:49] MED LIST changes: +GABA-549 PO; +INDO75CA PO; +PROP20TA56 PO
--- NOTE | 2017-08-13 09:01 | ER Report ---
History and Physical Time Seen By : 09:00 HPI/ROS CHIEF COMPLAINT: Dizziness, difficulty concentrating HISTORY OF PRESENT ILLNESS: This is a 41-year-old female. She came into the ER this morning because she is having some dizziness and lightheadedness. Started this morning. She did fall down a few stairs and has a slight injury to her knee but is able to walk on that and doesn't think it's a major injury. The new medicine she started was gabapentin 300 mg 3 times a day, took her first dose last night and a dose this morning. She also was switched from losartan to propranolol and is on propranolol 20 mg twice a day and take that last night and this morning. She denies any headache. She does have difficulty concentrating and is very sleepy. She denies chest pain or shortness of breath. Normal bowel and bladder function. No fevers or chills. Allergies: Coded Allergies: metformin (Verified Allergy, Intermediate, nausea, lightheadedness, 07/25/17 ) acetaminophen (Verified Allergy, Mild, ITCHING, 07/25/17) oxycodone (Verified Allergy, Mild, ITCHING, 07/25/17) Uncoded Allergies: SAGEBRUSH (Allergy, Intermediate, 01/31/15) CATS (Adverse Reaction, Mild, 01/31/15) Home Meds Active Scripts Gabapentin (GABAPENTIN) 300 Mg Capsule, 1-2 CAP PO TID, #90 CAPSULE 3 Refills Prov:DERREK ONEILL MD 08/12/17 Propranolol Hcl (PROPRANOLOL HCL) 20 Mg Tablet, 20 MG PO BID, #60 TAB 3 Refills Prov:DERREK ONEILL MD 08/12/17 Levothyroxine Sodium (LEVOTHYROXINE SODIUM) 100 Mcg Tablet, 100 MCG PO QDAY, # 30 TAB 6 Refills Prov:DERREK ONEILL MD 05/23/17 Escitalopram Oxalate (ESCITALOPRAM OXALATE) 20 Mg Tablet, 20 MG PO QDAY, #30 TAB 6 Refills Prov:DERREK ONEILL MD 05/22/17 Insulin Glargine,Hum.rec.anlog (Basaglar Kwikpen U-100) 100 Unit/Ml (3 Ml) Insuln.pen, 50 UNITS SQ HS, #2 BOX 2 Refills add 2 units every 3 days until Blood glucose 80-130 Prov:DERREK ONEILL MD 03/25/17 Reported Medications Indomethacin (INDOMETHACIN) 75 Mg Capsule.er, 75 MG PO BID 08/07/17 Cholecalciferol (Vitamin D3) (VITAMIN D3) 2,000 Unit Tablet, 1 TAB PO QDAY 08/26/16 Discontinued Scripts Losartan Potassium (LOSARTAN POTASSIUM) 25 Mg Tablet, 25 MG PO QDAY, #90 TAB 4 Refills Prov:DERREK ONEILL MD 02/21/17 Reviewed Nurses Notes: Yes Hx Smoking: No Smoking Status: Never Smoker Exposure to Second Hand Smoke?: No Hx Substance Use Disorder: No Hx Alcohol Use: No Constitutional Vital Sign - Last 24 Hours 08/13/17 08/13/17 08/13/17 08/13/17 08:55 08:56 08:59 09:00 Temp 98.1 Pulse 62 62 Resp 20 9 B/P (MAP) 119/72 (88) 119/72 111/80 (90) Pulse Ox 97 98 O2 Delivery Room Air 08/13/17 08/13/17 08/13/17 08/13/17 09:04 09:09 09:29 09:30 Pulse 60 60 59 Resp 16 6 23 B/P (MAP) 112/65 (81) Pulse Ox 96 97 94 08/13/17 08/13/17 08/13/17 08/13/17 09:34 09:39 09:44 09:49 Pulse 58 58 60 57 Resp 20 13 12 15 Pulse Ox 91 96 89 87 08/13/17 08/13/17 08/13/17 08/13/17 09:54 09:59 10:00 10:04 Pulse 60 59 57 Resp 18 17 19 B/P (MAP) 97/52 (67) Pulse Ox 91 90 88 08/13/17 08/13/17 08/13/17 08/13/17 10:09 10:24 10:30 10:39 Pulse 57 59 58 Resp 15 15 13 B/P (MAP) 97/62 (74) Pulse Ox 89 90 95 08/13/17 08/13/17 08/13/17 08/13/17 10:54 11:00 11:09 11:24 Pulse 57 59 54 Resp 21 10 B/P (MAP) 109/70 (83) Pulse Ox 95 95 08/13/17 08/13/17 08/13/17 08/13/17 11:30 11:39 11:44 11:49 Pulse 55 57 57 Resp 18 12 21 B/P (MAP) 111/65 (80) Pulse Ox 93 94 95 08/13/17 08/13/17 08/13/17 08/13/17 11:54 11:59 12:00 12:09 Pulse 57 57 61 Resp 11 10 21 B/P (MAP) 114/66 (82) Pulse Ox 99 95 95 08/13/17 08/13/17 08/13/17 08/13/17 12:14 12:19 12:24 12:29 Pulse 57 57 57 63 Resp 14 17 18 47 Pulse Ox 95 95 93 91 08/13/17 08/13/17 08/13/17 08/13/17 12:30 12:34 12:44 12:49 Pulse 56 56 58 Resp 11 13 10 B/P (MAP) 119/70 (86) Pulse Ox 95 92 96 Intake and Output 08/13/17 08/13/17 08/14/17 15:00 23:00 07:00 Intake Total 2000 ml Balance 2000 ml Physical Exam General Appearance: The patient is alert. No acute distress Non-toxic in appearance, but difficult time concentrating and staying awake. Eyes: Pupils are equal, round. No pallor, injection or icterus. ENT: Mucous membranes are moist. Normal oral mucosa. Posterior oropharynx is normal. Neck: Supple and non tender. Respiratory: Lungs are clear to auscultation. Cardiovascular: Regular rate and rhythm. No murmurs, gallops or rubs. Normal capillary refill. Gastrointestinal: Abdomen is soft and non tender. Nondistended. Normal active bowel sounds. Neurological: Alert and oriented x3. No focal neurologic deficits Skin: Warm and dry. Musculoskeletal: Extremities with some tenderness to the knee, some on the tailbone, no other injuries. No tenderness in palpation of the cervical, thoracic and lumbar spine. DIFFERENTIAL DIAGNOSIS: After history and physical exam, differential diagnosis was considered for dizziness, difficulty concentrating. I think this is going to be due to the new medications, likely a combination of the medicine she is on. She has been on gabapentin in the past but a lower dose with titration up to 300 mg. We may need to decrease the dose and titrated this up and also decrease her propranolol dose. Medical Decision Making Data Points Result Diagram: 08/13/1790408/13/17904 Laboratory Hematology Test 08/13/17 09:03 08/13/17 09:05 08/13/17 11:16 Whole Blood Glucose 132 mg/DL (75-110) Red Blood Count 4.45 M/uL (4.17-5.56) Mean Corpuscular Volume 87.0 fL (80.0-96.0) Mean Corpuscular Hemoglobin 30.6 pg (26.0-33.0) Mean Corpuscular Hemoglobin Concent 35.2 g/dL (32.0-36.0) Red Cell Distribution Width 13.2 % (11.5-14.5) Mean Platelet Volume 9.1 fL (7.2-11.1) Neutrophils (%) (Auto) 72.3 % (39.4-72.5) Lymphocytes (%) (Auto) 17.9 % (17.6-49.6) Monocytes (%) (Auto) 7.0 % (4.1-12.4) Eosinophils (%) (Auto) 1.8 % (0.4-6.7) Basophils (%) (Auto) 1.0 % (0.3-1.4) Nucleated RBC Relative Count (auto) 0.0 /100WBC Neutrophils # (Auto) 5.9 K/uL (2.0-7.4) Lymphocytes # (Auto) 1.5 K/uL (1.3-3.6) Monocytes # (Auto) 0.6 K/uL (0.3-1.0) Eosinophils # (Auto) 0.1 K/uL (0.0-0.5) Basophils # (Auto) 0.1 K/uL (0.0-0.1) Nucleated RBC Absolute Count (auto) 0.00 K/uL Sodium Level 140 mmol/L (137-145) Potassium Level 4.4 mmol/L (3.5-5.0) Chloride Level 106 mmol/L (98-107) Carbon Dioxide Level 25 mmol/L (22-31) Blood Urea Nitrogen 17 mg/dl (7-18) Creatinine 1.10 mg/dl (0.52-1.04) Glomerular Filtration Rate Calc 54.2 Random Glucose 135 mg/dl (75-110) Calcium Level 9.1 mg/dl (8.4-10.2) Total Bilirubin 1.0 mg/dl (0.2-1.3) Aspartate Amino Transf (AST/SGOT) 31 U/L (0-35) Alanine Aminotransferase (ALT/SGPT) 34 U/L (0-56) Alkaline Phosphatase 111 U/L (0-126) Total Protein 7.1 g/dl (6.3-8.2) Albumin 3.8 g/dl (3.5-5.0) Urine Color Georgie Urine Clarity Slightly-cloudy Urine pH 5.0 pH (4.8-9.5) Urine Specific [place] 1.027 Urine Protein Negative mg/dL (NEGATIVE) Urine Glucose (UA) Negative mg/dL (NEGATIVE) Urine Ketones Negative mg/dL (NEGATIVE) Urine Blood Negative (NEGATIVE) Urine Nitrite Negative (NEGATIVE) Urine Bilirubin Small (NEGATIVE) Urine Urobilinogen 2.0 mg/dL (0.2-1.9) Urine Leukocyte Esterase Negative (NEGATIVE) Urine RBC 1 /HPF (0-2/HPF) Urine WBC 1 /HPF (0-5/HPF) Urine Squamous Epithelial Cells Many /LPF (</=FEW) Urine Transitional Epithelial Cells Few /LPF (NONE-FEW) Urine Bacteria Negative /HPF (NONE-FEW) Urine Hyaline Casts Few /LPF (NONE-FEW) Urine Mucus Few /HPF (NONE-FEW) Chemistry Test 08/13/17 09:03 08/13/17 09:05 08/13/17 11:16 Whole Blood Glucose 132 mg/DL (75-110) White Blood Count 8.2 k/uL (4.5-11.0) Red Blood Count 4.45 M/uL (4.17-5.56) Hemoglobin 13.6 g/dL (12.0-16.0) Hematocrit 38.7 % (34.0-47.0) Mean Corpuscular Volume 87.0 fL (80.0-96.0) Mean Corpuscular Hemoglobin 30.6 pg (26.0-33.0) Mean Corpuscular Hemoglobin Concent 35.2 g/dL (32.0-36.0) Red Cell Distribution Width 13.2 % (11.5-14.5) Platelet Count 232 K/uL (150-450) Mean Platelet Volume 9.1 fL (7.2-11.1) Neutrophils (%) (Auto) 72.3 % (39.4-72.5) Lymphocytes (%) (Auto) 17.9 % (17.6-49.6) Monocytes (%) (Auto) 7.0 % (4.1-12.4) Eosinophils (%) (Auto) 1.8 % (0.4-6.7) Basophils (%) (Auto) 1.0 % (0.3-1.4) Nucleated RBC Relative Count (auto) 0.0 /100WBC Neutrophils # (Auto) 5.9 K/uL (2.0-7.4) Lymphocytes # (Auto) 1.5 K/uL (1.3-3.6) Monocytes # (Auto) 0.6 K/uL (0.3-1.0) Eosinophils # (Auto) 0.1 K/uL (0.0-0.5) Basophils # (Auto) 0.1 K/uL (0.0-0.1) Nucleated RBC Absolute Count (auto) 0.00 K/uL Glomerular Filtration Rate Calc 54.2 Calcium Level 9.1 mg/dl (8.4-10.2) Total Bilirubin 1.0 mg/dl (0.2-1.3) Aspartate Amino Transf (AST/SGOT) 31 U/L (0-35) Alanine Aminotransferase (ALT/SGPT) 34 U/L (0-56) Alkaline Phosphatase 111 U/L (0-126) Total Protein 7.1 g/dl (6.3-8.2) Albumin 3.8 g/dl (3.5-5.0) Urine Color Georgie Urine Clarity Slightly-cloudy Urine pH 5.0 pH (4.8-9.5) Urine Specific [place] 1.027 Urine Protein Negative mg/dL (NEGATIVE) Urine Glucose (UA) Negative mg/dL (NEGATIVE) Urine Ketones Negative mg/dL (NEGATIVE) Urine Blood Negative (NEGATIVE) Urine Nitrite Negative (NEGATIVE) Urine Bilirubin Small (NEGATIVE) Urine Urobilinogen 2.0 mg/dL (0.2-1.9) Urine Leukocyte Esterase Negative (NEGATIVE) Urine RBC 1 /HPF (0-2/HPF) Urine WBC 1 /HPF (0-5/HPF) Urine Squamous Epithelial Cells Many /LPF (</=FEW) Urine Transitional Epithelial Cells Few /LPF (NONE-FEW) Urine Bacteria Negative /HPF (NONE-FEW) Urine Hyaline Casts Few /LPF (NONE-FEW) Urine Mucus Few /HPF (NONE-FEW) Urinalysis Test 08/13/17 11:16 Urine Color Georgie Urine Clarity Slightly-cloudy Urine pH 5.0 pH (4.8-9.5) Urine Specific [place] 1.027 Urine Protein Negative mg/dL (NEGATIVE) Urine Glucose (UA) Negative mg/dL (NEGATIVE) Urine Ketones Negative mg/dL (NEGATIVE) Urine Blood Negative (NEGATIVE) Urine Nitrite Negative (NEGATIVE) Urine Bilirubin Small (NEGATIVE) Urine Urobilinogen 2.0 mg/dL (0.2-1.9) Urine Leukocyte Esterase Negative (NEGATIVE) Urine RBC 1 /HPF (0-2/HPF) Urine WBC 1 /HPF (0-5/HPF) Urine Squamous Epithelial Cells Many /LPF (</=FEW) Urine Transitional Epithelial Cells Few /LPF (NONE-FEW) Urine Bacteria Negative /HPF (NONE-FEW) Urine Hyaline Casts Few /LPF (NONE-FEW) Urine Mucus Few /HPF (NONE-FEW) ED Course/Re-evaluation Clinical Indication for ER IV: Hydration, IV Access ED Course The patient did feel a little bit better after 2 L of IV fluids, normal saline. Labs were unremarkable. Called and spoke with the patient's primary care provider, Dr. Oneill, and made the following medication adjustments as noted below and the instructions. Decision to Disposition Date: Aug 13, 2017 Decision to Disposition Time: 11:38 Depart Departure Latest Vital Signs Vital Signs Date Time Temp Pulse Resp B/P (MAP) Pulse Ox O2 Delivery O2 Flow Rate FiO2 08/13/17 12:49 58 10 96 08/13/17 12:30 119/70 (86) 08/13/17 08:56 98.1 Room Air Impression: Primary Impression: Adverse drug effect Additional Impression: Lightheaded Condition: Improved Disposition: HOME OR SELF-CARE Referrals: DERREK ONEILL MD (PCP) Patient Instructions: Adverse Drug Reaction (ED), Lightheadedness (ED) Additional Instructions: Blood work and urine test today were normal. We feel your symptoms are due to the new medicines that you started last night. We would like to make the following changes: Propranolol: Cut the 20mg tablets in half and take 1/2 tablet twice a day (10mg twice a day). Gabapentin: Keep taking the 300mg tablets, but take one at bedtime for the next 4 days, then increase to twice a day for 4 days, then increase to 3 times a day. Follow-up with Dr. Oneill. Problem Qualifiers Primary Impression: Adverse drug effect Encounter type: initial encounter Qualified Codes: T50.905A - Adverse effect of unspecified drugs, medicaments and biological substances, initial encounter MAHNAZ KELLY MD Aug 13, 2017 09:01
--- NOTE | 2017-08-13 09:15 | EKG ---
[place] [facility] [place]IENT NAME: SAMY RICARDO : [id number] MR: [id number] V: [id number] EXAM DATE: ORDERING PHYSICIAN: MAHNAZ KELLY TECHNOLOGIST: ZHEN Khan Reason : Blood Pressure : / mmHG Vent. Rate : 060 BPM Atrial Rate : 060 BPM P-R Int : 192 ms QRS Dur : 086 ms QT Int : 406 ms P-R-T Axes : 014 027 016 degrees QTc Int : 406 ms Normal sinus rhythm Anterior infarct , age undetermined No ST-T abnormalities Relatively unchanged from previous Confirmed by BRAXTON NG ([id number]) on 08/13/2017 11:59:39 AM Referred By: Confirmed By:BRAXTON NG
[2017-08-13 09:16] LABS: PLATELET COUNT, AUTOMATED 232 K/uL (150-450)
[2017-08-13] MEDS ORDERED: NS(*) 0.9% 1000 ML BAG 1,000 ML IV ONE ×2 (10:00→11:40)
[2017-08-13 12:30] VITALS: BP 119/70
== END 2017-08-13 13:00 | disposition home or self-care (01) ==
LOC: ER 09:02
DX: T50.905A Adverse effect of unspecified drugs, medicaments and biological substances, initial encounter (principal); R42 Dizziness and giddiness
CPT/HCPCS: 36416; 81001; 82948; 85025; 93005; 96360; 96361; 99283; J7030; 82040; 82247; 82310; 82374; 82435; 82565; 82947; 84075; 84132; 84155; 84295; 84450; 84460; 84520

== ENCOUNTER → 2017-09-11 | Outpatient (CLI) | payer OTHER ==
[~2017-09-11] MED LIST changes: +AMIT-104 PO; +DICL-190 PO; +FOLI-68 PO; +LEV112 PO; +METH2.5T43 PO; +METH4TAB66 PO; +Work Note
--- NOTE | 2017-09-11 09:04 | RADIOLOGY IMAGING REPORT ---
FACILITY: [facility] PATIENT NAME: Shea Mendosa : 1975 MR: [id number] V: [id number] EXAM DATE: ORDERING PHYSICIAN: MARISOL PINTO TECHNOLOGIST: Location: [facility] Patient: Shea Mendosa : 1975 Visit/Account:[id number] Date of Sevice: 09/11/2017 BRAIN W/O CONTRAST Chronic migraines for two months ADDITIONAL PERTINENT HISTORY: None. COMPARISON STUDIES: None. TECHNIQUE: Multi-planar, multi-sequence brain MRI was performed without IV contrast administration. FINDINGS: Ventricles / sulci / fissures: Negative. Masses / hemorrhage / midline shift: Negative. Intra-axial: negative Extra-axial fluid collections: Negative. Intracranial vasculature and dural sinuses: Negative. Skull base / calvarium: Negative. Visualized mastoid air cells / paranasal sinuses: Well aerated. Orbits: Negative. Scalp: Negative Upper neck:Negative. IMPRESSION: Unremarkable MR the brain without contrast Report Dictated By: Muna Cunningham MD at 09/11/2017 8:45 AM Report E-Signed By: Muna Cunningham MD at 09/11/2017 9:00 AM WSN:[email or web address]
== END ==
LOC: MRI 01:11
PROVIDERS: ATTEND Psychiatry & Neurology Neurology
DX: G43.109 Migraine with aura, not intractable, without status migrainosus (principal); R41.3 Other amnesia
CPT/HCPCS: 70551

== ENCOUNTER → 2017-09-17 | Outpatient (CLI) | payer OTHER ==
[~2017-09-17] MED LIST changes: +CHOL500016 PO; +PANT40TA65 PO
--- NOTE | 2017-09-19 12:43 | RADIOLOGY IMAGING REPORT ---
FACILITY: [facility] PATIENT NAME: Shea Mendosa : 1975 MR: [id number] V: [id number] EXAM DATE: ORDERING PHYSICIAN: DERREK SIDHU TECHNOLOGIST: Location: [facility] Patient: Shea Mendosa : 1975 Visit/Account:[id number] Date of Sevice: 09/17/2017 Exam type: LUMBAR SPINE 2 OR 3 VIEW History: Low back pain Comparison: July 12, 2016. Findings: Five nonrib-bearing lumbar-type vertebral bodies present. There is no evidence of acute fractures or subluxations. Tiny anterior osteophytes are seen throughout the lumbar spine. The intervertebral d isc spaces are relatively well-maintained. Mild degenerative facet joint changes are identified at L 5-S1 IMPRESSION: 1. There mild spondylotic changes of the lumbar spine as described Report Dictated By: Muna Cunningham MD at 09/17/2017 4:37 PM Report E-Signed By: Muna Cunningham MD at 09/17/2017 4:39 PM WSN:[email or web address]
--- NOTE | 2017-09-19 12:44 | RADIOLOGY IMAGING REPORT ---
[place] [facility] [place]: Shea Mendosa : 1975 MR: [id number] V: [id number] EXAM DATE: ORDERING PHYSICIAN: DERREK SIDHU TECHNOLOGIST: Location: [facility] Patient: Shea Mendosa : 1975 Visit/Account:[id number] Date of Sevice: 09/17/2017 Exam type: HIP RIGHT History: pain Comparison: CT abdomen pelvis January 31, 2015. Findings: Two views of the right hip demonstrate no evidence of acute fracture or dislocation. There is a well -circumscribed sclerotic density seen over the right femoral head and one over the intratrochanteric region of the left hip likely bone islands. Surgical clips are seen in the right-sided the pelvis IMPRESSION: 1. Well-circumscribed sclerotic densities are seen over the right femoral head in the intratrochante charleen region the left hip which likely represent bone islands are present on a prior CT of abdomen pelv is from January 31, 2015 Report Dictated By: Muna Cunningham MD at 09/17/2017 4:32 PM Report E-Signed By: Muna Cunningham MD at 09/17/2017 4:37 PM WSN:[email or web address]
== END ==
LOC: RAD 08:00
PROVIDERS: ATTEND Internal Medicine
DX: M89.8X6 Other specified disorders of bone, lower leg (principal); M47.896 Other spondylosis, lumbar region
CPT/HCPCS: 72100

== ENCOUNTER → 2017-09-17 | Outpatient (CLI) | payer OTHER ==
--- NOTE | 2017-09-17 16:41 | RADIOLOGY IMAGING REPORT ---
FACILITY: [facility] PATIENT NAME: Shea Mendosa : 1975 MR: [id number] V: [id number] EXAM DATE: ORDERING PHYSICIAN: DERREK SIDHU TECHNOLOGIST: Location: [facility] Patient: Shea Mendosa : 1975 Visit/Account:[id number] Date of Sevice: 09/17/2017 Exam type: HIP RIGHT History: pain Comparison: CT abdomen pelvis January 31, 2015. Findings: Two views of the right hip demonstrate no evidence of acute fracture or dislocation. There is a well -circumscribed sclerotic density seen over the right femoral head and one over the intratrochanteric region of the left hip likely bone islands. Surgical clips are seen in the right-sided the pelvis IMPRESSION: 1. Well-circumscribed sclerotic densities are seen over the right femoral head in the intratrochante charleen region the left hip which likely represent bone islands are present on a prior CT of abdomen pelv is from January 31, 2015 Report Dictated By: Muna Cunningham MD at 09/17/2017 4:32 PM Report E-Signed By: Muna Cunningham MD at 09/17/2017 4:37 PM WSN:[email or web address]
--- NOTE | 2017-09-17 16:43 | RADIOLOGY IMAGING REPORT ---
FACILITY: [facility] PATIENT NAME: Shea Mendosa : 1975 MR: [id number] V: [id number] EXAM DATE: ORDERING PHYSICIAN: DERREK SIDHU TECHNOLOGIST: Location: [facility] Patient: Shea Mendosa : 1975 Visit/Account:[id number] Date of Sevice: 09/17/2017 Exam type: LUMBAR SPINE 2 OR 3 VIEW History: Low back pain Comparison: July 12, 2016. Findings: Five nonrib-bearing lumbar-type vertebral bodies present. There is no evidence of acute fractures or subluxations. Tiny anterior osteophytes are seen throughout the lumbar spine. The intervertebral d isc spaces are relatively well-maintained. Mild degenerative facet joint changes are identified at L 5-S1 IMPRESSION: 1. There mild spondylotic changes of the lumbar spine as described Report Dictated By: Muna Cunningham MD at 09/17/2017 4:37 PM Report E-Signed By: Muna Cunningham MD at 09/17/2017 4:39 PM WSN:[email or web address]
== END ==
LOC: RESP 02:36
PROVIDERS: ATTEND Psychiatry & Neurology Neurology
DX: G47.33 Obstructive sleep apnea (adult) (pediatric) (principal)
CPT/HCPCS: 72100

== ENCOUNTER 2017-10-03 05:58 | Emergency (ER) | payer OTHER ==
--- NOTE | 2017-10-03 06:23 | ER Report ---
History and Physical Time Seen By MD: 06:23 Hx. of Stated Complaint: AMS (MAHNAZ HINOJOSA MD) Time Seen By MD: 07:45 (YONAS WAY DO) HPI/ROS CHIEF COMPLAINT: altered mental status HISTORY OF PRESENT ILLNESS: This is a 41 year old female. Her fiance awoke her this morning to go to work. She sat on the couch and did not do anything. He came back and told her that she needed to get moving and she did not remember the conversation a few minutes previously. He realized that something was wrong. She did not know where she was or what day it was. She knows her name. He notes that she does have fibromyalgia and was having some increased pain last night. She is able to tell me her name, but does give me her maiden name. She does not know where she is. She is able to tell me she is in a hospital, but no where and guesses [place], which is where she was born. She does not know the date. She says she had a headache, pressure feeling, mostly in the back. She has pain in her neck and back, and in her right forearm and in her right hip. She denies any chest pain or palpitations. She is not short of breath. She is very sleepy. Difficult time and slow with responses saying her thoughts feel "muddy". She has no vision changes. No numbness in her face or extremities and feels general weakness, but no focal weakness. Afshin states that the last time he noted that she was normal was prior to going to bed last night at about 2230 hours. No recent illnesses other than the fibromyalgia flare -up. She does not remember her last bowel or bladder function or if any problems. Afshin says she urinated and had a bowel movement yesterday, but unable say anything else about them. REVIEW OF SYSTEMS: Unable to obtain other than above. (MAHNAZ HINOJOSA MD) HPI/ROS Please see Dr. Hinojosa note (YONAS WAY DO) Allergies: Coded Allergies: metformin (Verified Allergy, Intermediate, nausea, lightheadedness, 07/25/17 ) acetaminophen (Verified Allergy, Mild, ITCHING, 07/25/17) oxycodone (Verified Allergy, Mild, ITCHING, 07/25/17) Uncoded Allergies: SAGEBRUSH (Allergy, Intermediate, 01/31/15) CATS (Adverse Reaction, Mild, 01/31/15) Home Meds Active Scripts Pantoprazole Sodium (PANTOPRAZOLE SODIUM) 40 Mg Tablet.dr, 40 MG PO QDAY, #30 TAB.SR 3 Refills Prov:DERREK SIDHU MD 09/18/17 Gabapentin (GABAPENTIN) 300 Mg Capsule, 1-2 CAP PO TID, #90 CAPSULE 3 Refills Prov:DERREK SIDHU MD 08/12/17 Propranolol Hcl (PROPRANOLOL HCL) 20 Mg Tablet, 20 MG PO BID, #60 TAB 3 Refills Prov:DERREK SIDHU MD 08/12/17 Escitalopram Oxalate (ESCITALOPRAM OXALATE) 20 Mg Tablet, 20 MG PO QDAY, #30 TAB 6 Refills Prov:DERREK SIDHU MD 05/22/17 Insulin Glargine,Hum.rec.anlog (Basaglar Kwikpen U-100) 100 Unit/Ml (3 Ml) Insuln.pen, 50 UNITS SQ HS, #2 BOX 2 Refills add 2 units every 3 days until Blood glucose 80-130 Prov:DERREK SIDHU MD 03/25/17 Reported Medications Cholecalciferol (Vitamin D3) (VITAMIN D3) 5,000 Unit Capsule, 5000 UNIT PO QDAY , CAPSULE 09/17/17 Folic Acid (FOLIC ACID) 1 Mg Tablet, 1 MG PO QDAY, TAB 09/08/17 Methotrexate Sodium (METHOTREXATE) 2.5 Mg Tablet, 2.5 MG PO DIRECTED, #1 7.5 mg once a week 09/08/17 Amitriptyline Hcl (AMITRIPTYLINE HCL) 10 Mg Tablet, 1-2 TAB PO QHS, TAB 09/08/17 Diclofenac Potassium (DICLOFENAC POTASSIUM) 50 Mg Tablet, 50 MG PO TID Y for pain/ALLAN, TAB 09/08/17 Levothyroxine Sodium (LEVOTHYROXINE SODIUM) 0.112 Mg Tab, 0.112 MG PO QDAY, TAB 09/08/17 Discontinued Scripts [Work Note] No Conflict Check Patient was seen in the office today. Please excuse from work 09/01/17 and 09/02/17. Prov:VANIA TOWNSEND DNP, VICE PRESIDENT TAX-BC 09/02/17 Past Medical/Surgical History Hypertension, fibromyalgia, sarcoidosis, history of kidney stones, arthritis, insulin-dependent diabetes. Surgeries include cholecystectomy, hysterectomy. Also with history of depression and anxiety with suicide attempt in the past attempting to drive off the road (MAHNAZ HINOJOSA MD) Reviewed Nurses Notes: Yes (MAHNAZ HINOJOSA MD) Hx Smoking: No Smoking Status: Never Smoker Exposure to Second Hand Smoke?: No Hx Substance Use Disorder: No Hx Alcohol Use: No (MAHNAZ HINOJOSA MD) Constitutional Vital Sign - Last 24 Hours 10/03/17 10/03/17 10/03/17 10/03/17 06:01 06:04 06:13 06:17 Temp 98.0 Pulse 76 72 Resp 16 B/P (MAP) 146/92 (110) 146/92 112/65 (81) Pulse Ox 97 O2 Delivery Room Air 10/03/17 10/03/17 10/03/17 10/03/17 06:28 06:30 06:43 07:00 Pulse 72 67 Resp 10 14 B/P (MAP) 127/80 (96) 98/62 (74) Pulse Ox 96 95 10/03/17 07:30 B/P (MAP) 108/72 (84) (YONAS WAY DO) Physical Exam General Appearance: The patient is awake, but very sleepy. Eyes closed, but opens them when I talk to her. Eyes: Pupils are equal, round. Reactive to light. No pallor, injection or icterus. Extraocular movements are intact. No nystagmus. ENT: Mucous membranes are moist. Normal oral mucosa. Posterior oropharynx is normal. Normal nasal mucosa. Neck: Supple and non tender. No lymphadenopathy. Respiratory: Lungs are clear to auscultation. There are no retractions or accessory muscle use. Cardiovascular: Regular rate and rhythm. No murmurs, gallops or rubs. Normal capillary refill. No edema. Gastrointestinal: Abdomen is soft and non tender. Nondistended. No masses or organomegaly. Normal active bowel sounds. No costovertebral angle tenderness with percussion. Neurological: Alert and oriented to self only, not oriented to time or place as noted. Cranial nerve exam with eye exam as noted above, midline tongue, symmetric palate elevation, no facial droop or numbness, normal voice quality per fiance. Extremities with normal strength, but had some decreased sensation in right forearm and hand. Reflexes diminished throughout. Normal coordination, but slow to respond to exam and questions. Skin: Warm and dry. No rashes. Musculoskeletal: Extremities show some tenderness with palpation of the right hip and right forearm. No other extremity tenderness. Full range of motion. Fingerstick glucose was 122 DIFFERENTIAL DIAGNOSIS: After history and physical exam, differential diagnosis was considered for altered mental status including but not limited to neurologic problem such as bleed or infarct, infectious process, electrolyte abnormality, head injury and intoxicants. (MAHNAZ HINOJOSA MD) Physical Exam Please see Dr. Hinojosa note (YONAS WAY DO) Medical Decision Making Data Points Result Diagram: 10/03/17 0610 10/03/17 0610 Laboratory Hematology Test 10/03/17 06:05 10/03/17 06:10 10/03/17 08:00 Whole Blood Glucose 122 mg/DL (75-110) Red Blood Count 4.43 M/uL (4.17-5.56) Mean Corpuscular Volume 89.3 fL (80.0-96.0) Mean Corpuscular Hemoglobin 31.1 pg (26.0-33.0) Mean Corpuscular Hemoglobin Concent 34.8 g/dL (32.0-36.0) Red Cell Distribution Width 14.3 % (11.5-14.5) Mean Platelet Volume 8.7 fL (7.2-11.1) Neutrophils (%) (Auto) 62.4 % (39.4-72.5) Lymphocytes (%) (Auto) 25.2 % (17.6-49.6) Monocytes (%) (Auto) 8.4 % (4.1-12.4) Eosinophils (%) (Auto) 3.3 % (0.4-6.7) Basophils (%) (Auto) 0.7 % (0.3-1.4) Nucleated RBC Relative Count (auto) 0.0 /100WBC Neutrophils # (Auto) 3.9 K/uL (2.0-7.4) Lymphocytes # (Auto) 1.6 K/uL (1.3-3.6) Monocytes # (Auto) 0.5 K/uL (0.3-1.0) Eosinophils # (Auto) 0.2 K/uL (0.0-0.5) Basophils # (Auto) 0.0 K/uL (0.0-0.1) Nucleated RBC Absolute Count (auto) 0.00 K/uL Prothrombin Time 12.1 seconds (12.0-14.4) Prothromb Time International Ratio 0.90 Activated Partial Thromboplast Time 28 seconds (23-35) Sodium Level 139 mmol/L (137-145) Potassium Level 4.0 mmol/L (3.5-5.0) Chloride Level 103 mmol/L (98-107) Carbon Dioxide Level 27 mmol/L (22-31) Blood Urea Nitrogen 16 mg/dl (7-18) Creatinine 0.90 mg/dl (0.52-1.04) Glomerular Filtration Rate Calc > 60.0 Random Glucose 119 mg/dl (75-110) Calcium Level 9.0 mg/dl (8.4-10.2) Total Bilirubin 0.4 mg/dl (0.2-1.3) Aspartate Amino Transf (AST/SGOT) 32 U/L (0-35) Alanine Aminotransferase (ALT/SGPT) 49 U/L (0-56) Alkaline Phosphatase 80 U/L (0-126) Troponin I < 0.012 ng/ml Total Protein 7.2 g/dl (6.3-8.2) Albumin 4.0 g/dl (3.5-5.0) Salicylates Level < 10 mg/L Salicylate Last Dose Date unk Acetaminophen Level < 10 ug/ml Serum Alcohol < 10 mg/dl Urine Color Yellow Urine Clarity Clear Urine pH 5.0 pH (4.8-9.5) Urine Specific [place] 1.020 Urine Protein Negative mg/dL (NEGATIVE) Urine Glucose (UA) Negative mg/dL (NEGATIVE) Urine Ketones Negative mg/dL (NEGATIVE) Urine Blood Negative (NEGATIVE) Urine Nitrite Negative (NEGATIVE) Urine Bilirubin Negative (NEGATIVE) Urine Urobilinogen 2.0 mg/dL (0.2-1.9) Urine Leukocyte Esterase Negative (NEGATIVE) Urine RBC 1 /HPF (0-2/HPF) Urine WBC 2 /HPF (0-5/HPF) Urine Squamous Epithelial Cells Many /LPF (</=FEW) Urine Calcium Oxalate Crystals Few /HPF (NONE) Urine Bacteria Negative /HPF (NONE-FEW) Urine Mucus Few /HPF (NONE-FEW) Urine Opiates Screen Negative Urine Barbiturates Screen Negative Ur Tricyclic Antidepressants Screen Positive Urine Phencyclidine Screen Negative Urine Amphetamines Screen Negative Urine Benzodiazepines Screen Negative Urine Cocaine Screen Negative Urine Cannabinoids Screen Negative Chemistry Test 10/03/17 06:05 10/03/17 06:10 10/03/17 08:00 Whole Blood Glucose 122 mg/DL (75-110) White Blood Count 6.3 k/uL (4.5-11.0) Red Blood Count 4.43 M/uL (4.17-5.56) Hemoglobin 13.8 g/dL (12.0-16.0) Hematocrit 39.5 % (34.0-47.0) Mean Corpuscular Volume 89.3 fL (80.0-96.0) Mean Corpuscular Hemoglobin 31.1 pg (26.0-33.0) Mean Corpuscular Hemoglobin Concent 34.8 g/dL (32.0-36.0) Red Cell Distribution Width 14.3 % (11.5-14.5) Platelet Count 281 K/uL (150-450) Mean Platelet Volume 8.7 fL (7.2-11.1) Neutrophils (%) (Auto) 62.4 % (39.4-72.5) Lymphocytes (%) (Auto) 25.2 % (17.6-49.6) Monocytes (%) (Auto) 8.4 % (4.1-12.4) Eosinophils (%) (Auto) 3.3 % (0.4-6.7) Basophils (%) (Auto) 0.7 % (0.3-1.4) Nucleated RBC Relative Count (auto) 0.0 /100WBC Neutrophils # (Auto) 3.9 K/uL (2.0-7.4) Lymphocytes # (Auto) 1.6 K/uL (1.3-3.6) Monocytes # (Auto) 0.5 K/uL (0.3-1.0) Eosinophils # (Auto) 0.2 K/uL (0.0-0.5) Basophils # (Auto) 0.0 K/uL (0.0-0.1) Nucleated RBC Absolute Count (auto) 0.00 K/uL Prothrombin Time 12.1 seconds (12.0-14.4) Prothromb Time International Ratio 0.90 Activated Partial Thromboplast Time 28 seconds (23-35) Glomerular Filtration Rate Calc > 60.0 Calcium Level 9.0 mg/dl (8.4-10.2) Total Bilirubin 0.4 mg/dl (0.2-1.3) Aspartate Amino Transf (AST/SGOT) 32 U/L (0-35) Alanine Aminotransferase (ALT/SGPT) 49 U/L (0-56) Alkaline Phosphatase 80 U/L (0-126) Troponin I < 0.012 ng/ml Total Protein 7.2 g/dl (6.3-8.2) Albumin 4.0 g/dl (3.5-5.0) Salicylates Level < 10 mg/L Salicylate Last Dose Date unk Acetaminophen Level < 10 ug/ml Serum Alcohol < 10 mg/dl Urine Color Yellow Urine Clarity Clear Urine pH 5.0 pH (4.8-9.5) Urine Specific [place] 1.020 Urine Protein Negative mg/dL (NEGATIVE) Urine Glucose (UA) Negative mg/dL (NEGATIVE) Urine Ketones Negative mg/dL (NEGATIVE) Urine Blood Negative (NEGATIVE) Urine Nitrite Negative (NEGATIVE) Urine Bilirubin Negative (NEGATIVE) Urine Urobilinogen 2.0 mg/dL (0.2-1.9) Urine Leukocyte Esterase Negative (NEGATIVE) Urine RBC 1 /HPF (0-2/HPF) Urine WBC 2 /HPF (0-5/HPF) Urine Squamous Epithelial Cells Many /LPF (</=FEW) Urine Calcium Oxalate Crystals Few /HPF (NONE) Urine Bacteria Negative /HPF (NONE-FEW) Urine Mucus Few /HPF (NONE-FEW) Urine Opiates Screen Negative Urine Barbiturates Screen Negative Ur Tricyclic Antidepressants Screen Positive Urine Phencyclidine Screen Negative Urine Amphetamines Screen Negative Urine Benzodiazepines Screen Negative Urine Cocaine Screen Negative Urine Cannabinoids Screen Negative Coagulation Test 10/03/17 06:10 Prothrombin Time 12.1 seconds Prothromb Time International Ratio 0.90 Activated Partial Thromboplast Time 28 seconds Toxicology Test 10/03/17 06:10 10/03/17 08:00 Salicylates Level < 10 mg/L Salicylate Last Dose Date unk Acetaminophen Level < 10 ug/ml Serum Alcohol < 10 mg/dl Urine Opiates Screen Negative Urine Barbiturates Screen Negative Ur Tricyclic Antidepressants Screen Positive Urine Phencyclidine Screen Negative Urine Amphetamines Screen Negative Urine Benzodiazepines Screen Negative Urine Cocaine Screen Negative Urine Cannabinoids Screen Negative Urinalysis Test 10/03/17 08:00 Urine Color Yellow Urine Clarity Clear Urine pH 5.0 pH (4.8-9.5) Urine Specific [place] 1.020 Urine Protein Negative mg/dL (NEGATIVE) Urine Glucose (UA) Negative mg/dL (NEGATIVE) Urine Ketones Negative mg/dL (NEGATIVE) Urine Blood Negative (NEGATIVE) Urine Nitrite Negative (NEGATIVE) Urine Bilirubin Negative (NEGATIVE) Urine Urobilinogen 2.0 mg/dL (0.2-1.9) Urine Leukocyte Esterase Negative (NEGATIVE) Urine RBC 1 /HPF (0-2/HPF) Urine WBC 2 /HPF (0-5/HPF) Urine Squamous Epithelial Cells Many /LPF (</=FEW) Urine Calcium Oxalate Crystals Few /HPF (NONE) Urine Bacteria Negative /HPF (NONE-FEW) Urine Mucus Few /HPF (NONE-FEW) (YONAS WAY DO) EKG/Imaging EKG Interpretation 12 lead EKG: Rhythm: normal sinus rhythm, rate 69 Jbphh: normal QRS: normal ST segments: Nonspecific changes, no ST elevation or depression noted, flattened T waves (MAHNAZ HINOJOSA MD) EKG Interpretation 12 lead EKG: Normal sinus rhythm, rate 69, QTC 430, no ischemic changes Rhythm: normal sinus rhythm Jbphh: normal QRS: normal ST segments: normal Imaging Location: [facility] Patient: Shea Mednosa : 1975 Visit/Account:[id number] Date of [facility]: 10/03/2017 BRAIN W W/O CONTRAST Provided history: Altered mental status Additional pertinent history: none TECHNIQUE: Multiplanar multisequence brain MRI was performed without and with intravenous contrast Contrast dose: 15 mL of MultiHance. Additional focused sequences: none COMPARISON STUDIES: MRI brain 09/11/[address] earlier this morning FINDINGS: Brain volume: Normal Acute ischemia: None Chronic cortical and ganglionic ischemia: none significant Hemorrhage: None Masses / edema: None White matter lesions : Normal Vessels: Normal Extra-axial: None Calvarium / scalp: Negative Skull base / infratemporal fossa: negative Visualized sinuses / orbits / upper neck: negative IMPRESSION: Normal MR of the brain. No evidence of mass, acute ischemia or hemorrhage. (YONAS WAY DO) ED Course/Re-evaluation Clinical Indication for ER IV: IV Access (MAHNAZ HINOJOSA MD) ED Course Patient is a 41-year-old female here with complaints of altered mental status, confusion, disorientation. Last known normal was approximately 2200 last night per patient's family. CT imaging of the head showed no acute findings. Please see labs for further details. MRI was completed to rule out stroke and showed no acute findings. I discussed the findings with the patient and the patient's significant other who voiced understanding. Patient significant other's able to observe her for the next 24 hours and agrees to return promptly if she develops worsening symptoms or decline. Patient is alert and oriented times discharge. Decision to Disposition Date: Oct 03, 2017 Decision to Disposition Time: 09:21 (YONAS WAY DO) Depart Departure Latest Vital Signs Vital Signs Date Time Temp Pulse Resp B/P (MAP) Pulse Ox O2 Delivery O2 Flow Rate FiO2 10/03/17 07:30 108/72 (84) 10/03/17 06:43 67 14 95 10/03/17 06:04 98.0 Room Air (YONAS WAY DO) Impression: Primary Impression: Altered mental state Condition: Improved Disposition: HOME OR SELF-CARE Referrals: DERREK SIDHU MD (PCP) Patient Instructions: Altered Mental Status (GEN) Additional Instructions: Please drink plenty of water. Please return promptly if you develop worsening symptoms. Please be sure to be observed by a family member the next 24 hours until symptoms resolve. Your MRI results are listed below and showed no signs of stroke or intracranial bleeding. Please follow-up promptly in the next day or 2 with your family doctor. Location: [facility] Patient: Shea Mendosa : 1975 Visit/Account:[id number] Date of [place]: 10/03/2017 BRAIN W W/O CONTRAST Provided history: Altered mental status Additional pertinent history: none TECHNIQUE: Multiplanar multisequence brain MRI was performed without and with intravenous contrast Contrast dose: 15 mL of MultiHance. Additional focused sequences: none COMPARISON STUDIES: MRI brain 09/11/[address] earlier this morning FINDINGS: Brain volume: Normal Acute ischemia: None Chronic cortical and ganglionic ischemia: none significant Hemorrhage: None Masses / edema: None White matter lesions : Normal Vessels: Normal Extra-axial: None Calvarium / scalp: Negative Skull base / infratemporal fossa: negative Visualized sinuses / orbits / upper neck: negative IMPRESSION: Normal MR of the brain. No evidence of mass, acute ischemia or hemorrhage. MAHNAZ HINOJOSA MD Oct 03, 2017 06:[address] DO Oct 03, 2017 07:47
[2017-10-03 06:53] LABS: PLATELET COUNT, AUTOMATED 281 K/uL (150-450)
--- NOTE | 2017-10-03 07:18 | RADIOLOGY IMAGING REPORT ---
[place] [facility] [place] Shea Mendosa : 1975 MR: [id number] V: [id number] EXAM DATE: ORDERING PHYSICIAN: MAHNAZ KELLY TECHNOLOGIST: Location: [facility] [place] Patient: Shea Mendosa : 1975 Visit/Account:[id number] Date of [place]: 10/03/[address]: Indication: Altered mental status. Technique: Contiguous axial sections were obtained from the base to the vertex without contrast enhan cement. One of the following dose optimization techniques was utilized in the performance of this exam: Autom ated exposure control; adjustment of the mA and/or kV according to the patient's size; or use of an i terative reconstruction technique. Specific details can be referenced in the facility's radiology CT exam operational policy. Comparison: 05/05/2017 Findings: There is no evidence of intra-axial or extra-axial hemorrhage. No focal areas of decreased or increased attenuation are identified. There is no evidence of mass, edema, or shift of the midline structures. The size, shape, and configuration of the ventricular system are normal. The skeletal st ructures are intact and unremarkable. The visualized paranasal sinuses and mastoid air cells are khari r. Impression: Unremarkable unenhanced head CT. No significant change. Report Dictated By: Momo Goss MD at 10/03/2017 7:09 AM Report E-Signed By: Momo Goss MD at 10/03/2017 7:13 AM WSN:[id number]
--- NOTE | 2017-10-03 07:19 | RADIOLOGY IMAGING REPORT ---
[place] [facility] [place] Shea Mendosa : 1975 MR: [id number] V: [id number] EXAM DATE: ORDERING PHYSICIAN: MAHNAZ KELLY TECHNOLOGIST: Location: [facility] - [place] Patient: Shea Mendosa : 1975 Visit/Account:[id number] Date of [place]: 10/03/2017 PORTABLE CHEST: Indication: Altered mental status. Technique: A single frontal film was obtained. Comparison: 10/12/2016 Skeletal and soft tissue structures: Intact and unremarkable. Heart and mediastinum: Within normal limits. Lung chang: Well-expanded and clear. No focal opacities. No vascular congestion. Pleural spaces: Unremarkable. Impression: No acute process or significant change. Report Dictated By: Momo Goss MD at 10/03/2017 7:13 AM Report E-Signed By: Momo Goss MD at 10/03/2017 7:14 AM WSN:[id number]
--- NOTE | 2017-10-03 07:26 | EKG ---
FACILITY: [facility] PATIENT NAME: SAMY RICARDO : [id number] MR: [id number] V: [id number] EXAM DATE: ORDERING PHYSICIAN: MAHNAZ KELLY TECHNOLOGIST: KATERIN Khan Reason : NEURO Blood Pressure : / mmHG Vent. Rate : 069 BPM Atrial Rate : 069 BPM P-R Int : 186 ms QRS Dur : 088 ms QT Int : 402 ms P-R-T Axes : 017 -04 007 degrees QTc Int : 430 ms Normal sinus rhythm Anterolateral infarct (cited on or before 05-SEP-2016) Abnormal ECG When compared with ECG of 13-AUG-2017 09:03, No significant change was found Confirmed by BRAXTON NG ([id number]) on 10/03/2017 7:55:11 PM Referred By: LETICIA Confirmed By:BRAXTON NG
[2017-10-03 07:38] LABS: INR 0.9
[2017-10-03] MEDS ORDERED: GADOBENATE 529MG/1ML 15ML VIAL IVP ONE (08:22)
--- NOTE | 2017-10-03 09:02 | RADIOLOGY IMAGING REPORT ---
FACILITY: [facility] PATIENT NAME: Shea Mendosa : 1975 MR: [id number] V: [id number] EXAM DATE: ORDERING PHYSICIAN: MAHNAZ KELLY TECHNOLOGIST: Location: [facility] Patient: Shea Mendosa : 1975 Visit/Account:[id number] Date of [place]: 10/03/2017 BRAIN W W/O CONTRAST Provided history: Altered mental status Additional pertinent history: none TECHNIQUE: Multiplanar multisequence brain MRI was performed without and with intravenous contrast Contrast dose: 15 mL of MultiHance. Additional focused sequences: none COMPARISON STUDIES: MRI brain 09/11/[address] earlier this morning FINDINGS: Brain volume: Normal Acute ischemia: None Chronic cortical and ganglionic ischemia: none significant Hemorrhage: None Masses / edema: None White matter lesions : Normal Vessels: Normal Extra-axial: None Calvarium / scalp: Negative Skull base / infratemporal fossa: negative Visualized sinuses / orbits / upper neck: negative IMPRESSION: Normal MR of the brain. No evidence of mass, acute ischemia or hemorrhage. Report Dictated By: Momo Boyd MD at 10/03/2017 8:54 AM Report E-Signed By: Momo Boyd MD at 10/03/2017 8:57 AM WSN:[id number]
[2017-10-03 09:21] VITALS: BP 120/78
== END 2017-10-03 09:27 | disposition home or self-care (01) ==
LOC: ER 06:04
DX: R41.82 Altered mental status, unspecified (principal); I10 Essential (primary) hypertension; M79.7 Fibromyalgia; M19.90 Unspecified osteoarthritis, unspecified site; E11.9 Type 2 diabetes mellitus without complications; D86.9 Sarcoidosis, unspecified; F41.9 Anxiety disorder, unspecified; Z87.442 Personal history of urinary calculi; Z79.4 Long term (current) use of insulin; Z79.899 Other long term (current) drug therapy
CPT/HCPCS: 36416; 70450; 70553; 71045; 80305; 80320; 80329; 81001; 82948; 84484; 85025; 85610; 85730; 93005; 99285; A9577; 82040; 82247; 82310; 82374; 82435; 82565; 82947; 84075; 84132; 84155; 84295; 84450; 84460; 84520

== ENCOUNTER 2017-10-06 16:27 | Outpatient (RCR) | payer OTHER ==
--- NOTE | 2017-09-18 10:34 | PT INITIAL EVALUATION ---
MEDICAL DIAGNOSIS: Right hip pain, low back pain TREATMENT DIAGNOSIS: Right hip pain, low back pain, right hip weakness DATE OF ONSET: 09/18/17 SUBJECTIVE: Shea is a 41 year old female presenting to physical therapy following a 2 week onset of R hip pain. Pt reports no NOAH, but that it suddenly came on and appears to be getting worse. Pain is located on the R lateral hip with a "C" sign to the groin, buttocks and sacrum and is rated currently at 6/ 10. Pain increases with hip abduction getting out of the car or sitting on the toilet, and also with ER such as tying her shoe. Pain at it's worst is rated as a 8/10 and best at a 3-4/10. Pt reports that her doctor recently started her on systemic steroids but that they had no effect on the pain. Pt has a history of fibromyalgia and psoriatic arthritis. Pt has a history of low back pain, but reports no correlation of the two pains. 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 OBJECTIVE: ROM: Lumbar ROM: all full with out pain, stretch in ext and B SB. Hip ROM: flexion/ext: full B with pain in R hip at end ranges, ER: B 35, IR: L 55, R 48 wit pain and end range. Strength: LE MMT: flexion: L 4/5, R 4-/5 with pain, ext: B 4/5 without pain, abd : B 4/5 with pain on R side, add: B 4+/5. Knee: Ext: 4+/5, flexion: L 4+/5, R 4-/5 with pain in hip. Ankle: PF/DF B 4+/5. Palpation: Pt is ttp along gluteus med, piriformis, and TFL on the R hip. Pn with greater trochanteric compression. Special Tests: KAYLEEN (+), Thigh thrust (-), Hip Scour (-), FADIR (-), SIJ provocation (-), Iron's (-) Mobility: Pain with anterior glide of R hip, no pain with posterior glide or inferior glide Other Objective Findings: Lower Extremity Functional Scale (LEFS): 32/80 ASSESSMENT: Shea shows signs and symptoms consistent with R hip movement dysfunction with associated muscle guarding. Physical therapy is indicated for this patient to address the above listed deficits to improve functional mobility with ADL's and work related activities. Short Term Goals In 3 weeks pt will increase R hip IR and ER to equal to that of the contralateral side for improved function with ADL's. In 3 weeks pt will decrease pain to 3/10 or less with ADL's for improved function. In 6 weeks pt will increase strength of the R hip to equal to that of the contralateral limb for improved function with ADL's. In 6 weeks pt will improve LEFS to >41 for improved function with ADL's. Patient's Goals Decrease pain and improve function with ADL's and work activities. PLAN: Patient to be seen for Manual Therapy/STM/MET Strengthening/condition Ice/Heat Range of Motion Spinal Stabilization Ultrasound Stretching Iontophoresis Neuromuscular Re-ed Closed Chain Program Electrical Stim Posture/Body mechanics Gait Trg/Balance Trg Biofeedback Home Exercise Program Mech./Manual Traction Therapeutic Activities Pelvic Floor 3x/Week for 6 Weeks If you have any questions, comments, or concerns about this report or plan, please contact me at . Thank you, Shea Barry, PT, DPT, CLT JUAN
[~2017-10-06 16:27] MED LIST changes: +CHOL200018 PO; -CHOL200022 PO; -LOSA25TA50 PO; +LOSA25TA52 PO; -METF-421 PO; +METF-452 PO
[2017-11-10] MEDS ORDERED: GABA-549 PO (13:36)
[2017-11-10] MEDS ORDERED: DULO30CA35 PO (13:36)
[2017-11-10] MEDS ORDERED: CELE-1 PO (13:36)
[2017-11-10] MEDS ORDERED: MAGN250T5 PO (13:36)
== END 2017-10-06 18:00 | disposition home or self-care (01) ==
LOC: PT 16:27
PROVIDERS: ATTEND Internal Medicine
DX: M25.551 Pain in right hip (principal); M54.5 Low back pain; M62.81 Muscle weakness (generalized)
CPT/HCPCS: 97162

== ENCOUNTER → 2017-11-10 | Outpatient (CLI) | payer OTHER ==
[~2017-11-10] MED LIST changes: +MAGN250T5 PO
[2017-11-10 14:45] LABS: PLATELET COUNT, AUTOMATED 276 K/uL (150-450)
== END ==
LOC: LAB 13:44
PROVIDERS: ATTEND Internal Medicine
DX: F41.9 Anxiety disorder, unspecified (principal); G89.29 Other chronic pain; R53.83 Other fatigue; M25.551 Pain in right hip; M79.7 Fibromyalgia; E03.9 Hypothyroidism, unspecified; E11.9 Type 2 diabetes mellitus without complications
CPT/HCPCS: 36415; 81001; 82040; 82247; 82310; 82374; 82435; 82565; 82607; 82746; 82947; 83036; 84075; 84132; 84155; 84295; 84439; 84443; 84450; 84460; 84520; 85025; 85651; 86140

== ENCOUNTER → 2017-11-18 | Outpatient (CLI) | payer OTHER | LOC: LAB 12:46 | PROVIDERS: ATTEND Internal Medicine | DX: E11.9 Type 2 diabetes mellitus without complications (principal); E03.9 Hypothyroidism, unspecified; M79.7 Fibromyalgia | CPT/HCPCS: 81001; 87088 ==

== ENCOUNTER 2017-11-21 03:10 | Inpatient (IN) | payer OTHER ==
[~2017-11-21] VITALS: Ht 162.6 cm; Wt 119.5 kg
[2017-11-21] MEDS ORDERED: PROP10TA58 PO (03:30)
--- NOTE | 2017-11-21 03:33 | ER Report ---
History and Physical Time Seen By MD: 03:32 Hx. of Stated Complaint: Patient states she has been having right flank pain, nausea, vomiting, and fever starting morning. Also states she has a current UTI (MAHNAZ KELLY MD) HPI/ROS CHIEF COMPLAINT: Abdominal pain HISTORY OF PRESENT ILLNESS: This is a 42-year-old female. She started having abdominal pain yesterday in the morning, started in the right upper quadrant is now wrapping around to her right flank. She is having associated nausea and vom iting and has had some fever and chills. Her fever was up to 101.5. She denies any diarrhea or trouble with the bowels other than them being die grinder color than usual. She denies any urinary pain or frequency. She has had a history of her gallbladder being removed in about a year later a gallstone in the bile duct. Her GI doctor is told her that she still forms stones and we'll need to watch out for symptoms like this. Based on her symptoms tonight that's what she was worried about. She denies any shortness of breath or chest pain associated with this. (MAHNAZ KELLY MD) Allergies: Coded Allergies: metformin (Verified Allergy, Intermediate, nausea, lightheadedness, 11/21/17) oxycodone (Verified Allergy, Mild, ITCHING, 11/21/17) Uncoded Allergies: SAGEBRUSH (Allergy, Intermediate, 01/31/15) CATS (Adverse Reaction, Mild, 01/31/15) Home Meds Active Scripts Insulin Glargine,Hum.rec.anlog (Basaglar Kwikpen U-100) 100 Unit/Ml (3 Ml) Insuln.pen, 50 UNITS SQ HS, #2 BOX 3 Refills add 2 units every 3 days until Blood glucose 80-130 Not to exceed 70units per day Prov:DERREK SIDHU MD 11/14/17 Celecoxib (CELEBREX) 200 Mg Capsule, 200 MG PO QDAY PRN for pain, #30 CAPSULE 2 Refills Prov:DERREK SIDHU MD 11/10/17 Gabapentin (GABAPENTIN) 300 Mg Capsule, 3 CAP PO HS, #90 CAPSULE Prov:DERREK SIDHU MD 11/10/17 Reported Medications Escitalopram Oxalate (LEXAPRO) 20 Mg Tablet, 20 MG PO HS, TAB 11/21/17 Duloxetine Hcl (CYMBALTA) 30 Mg Capsule.dr, 30 MG PO HS, #5 CAP 11/21/17 Propranolol Hcl (PROPRANOLOL HCL) 10 Mg Tablet, 20 MG PO BID 11/21/17 Magnesium Oxide (MAGNESIUM OXIDE) 250 Mg Tablet, 250 MG PO HS 11/10/17 Cholecalciferol (Vitamin D3) (VITAMIN D3) 5,000 Unit Capsule, 5000 UNIT PO HS, CAPSULE 09/17/17 Folic Acid (FOLIC ACID) 1 Mg Tablet, 400 MG PO HS, TAB 09/08/17 Methotrexate Sodium (METHOTREXATE) 2.5 Mg Tablet, 2.5 MG PO DIRECTED, #1 7.5 mg once a week 09/08/17 Amitriptyline Hcl (AMITRIPTYLINE HCL) 10 Mg Tablet, 1-2 TAB PO QHS, TAB 09/08/17 Levothyroxine Sodium (LEVOTHYROXINE SODIUM) 0.112 Mg Tab, 0.112 MG PO QDAY, TAB 09/08/17 Discontinued Scripts Duloxetine Hcl (CYMBALTA) 30 Mg Capsule.dr, 30 MG PO QDAY, #30 CAP 3 Refills Prov:DERREK SIDHU MD 11/10/17 Pantoprazole Sodium (PANTOPRAZOLE SODIUM) 40 Mg Tablet.dr, 40 MG PO QDAY, #30 TAB.SR 3 Refills Prov:DERREK SIDHU MD 09/18/17 Escitalopram Oxalate (ESCITALOPRAM OXALATE) 20 Mg Tablet, 20 MG PO QDAY, #30 TAB 6 Refills Prov:DERREK SIDHU MD 05/22/17 Reviewed Nurses Notes: Yes (MAHNAZ KELLY MD) Hx Smoking: No Smoking Status: Never Smoker Exposure to Second Hand Smoke?: No Hx Substance Use Disorder: No Hx Alcohol Use: No (MAHNAZ KELLY MD) Constitutional Vital Sign - Last 24 Hours 11/21/17 11/21/17 11/21/17 11/21/17 03:16 03:19 03:22 03:30 Temp 98.1 Pulse 116 Resp 17 B/P (MAP) 130/82 130/82 (98) 121/74 (90) 124/71 (88) Pulse Ox 95 O2 Delivery Room Air 11/21/17 11/21/17 11/21/17 11/21/17 03:40 04:00 04:30 04:40 Pulse 107 101 B/P (MAP) 102/76 (85) 105/67 (80) Pulse Ox 95 90 11/21/17 11/21/17 11/21/17 11/21/17 05:06 05:11 05:30 05:41 Pulse 90 102 B/P (MAP) 125/68 (87) 101/59 (73) Pulse Ox 91 93 11/21/17 11/21/17 11/21/17 11/21/17 06:00 06:11 06:30 06:41 Pulse 95 99 B/P (MAP) 104/69 (81) 107/68 (81) Pulse Ox 92 97 11/21/17 11/21/17 11/21/17 11/21/17 06:46 07:00 07:01 07:16 Pulse 91 90 93 B/P (MAP) 108/67 (81) Pulse Ox 93 91 92 11/21/17 11/21/17 11/21/17 11/21/17 08:27 08:30 08:31 08:36 Pulse 84 87 B/P (MAP) 116/65 (82) 106/66 (79) Pulse Ox 91 89 11/21/17 11/21/17 11/21/17 11/21/17 08:51 09:00 09:06 09:21 Pulse 85 88 86 B/P (MAP) 106/64 (78) Pulse Ox 91 93 92 11/21/17 11/21/17 11/21/17 11/21/17 09:30 09:35 09:50 10:00 Temp 98.7 Pulse 83 85 B/P (MAP) 129/75 (93) 118/72 (87) Pulse Ox 88 93 11/21/17 11/21/17 10:05 10:20 Pulse 85 87 Pulse Ox 87 89 Intake and Output 11/20/17 11/20/17 11/21/17 15:00 23:00 07:00 Intake Total 1000 ml Balance 1000 ml (JAYDE MEZA MD) Physical Exam General Appearance: The patient is alert. She is having a little distress be cause of the pain. Non-toxic in appearance. Eyes: Pupils are equal, round. No pallor, injection or icterus. ENT: Mucous membranes are moist. Neck: Supple and non tender. No lymphadenopathy. Respiratory: Lungs are clear to auscultation. Cardiovascular: Regular rate and rhythm. No murmurs, gallops or rubs. Normal capillary refill. Gastrointestinal: Abdomen is soft. Tender in the right upper quadrant. Wraps around her flank. Nondistended. Guarding but no rebound. Normal active bowel sounds. She does have a little bit of right CVA pain Neurological: Alert and oriented x3. Skin: Warm and dry. No rashes. Musculoskeletal: No tenderness in palpation of the cervical, thoracic and lumbar spine. DIFFERENTIAL DIAGNOSIS: After history and physical exam, differential diagnosis was considered for abdominal pain in the right upper quadrant which would be concerning for biliary problems, colitis, kidney or urinary tract problems. ([facility]) Medical Decision Making Data Points Result Diagram: 11/21/17 0400 11/21/17 0400 Laboratory Hematology Test 11/21/17 03:30 11/21/17 04:00 Urine Color Yellow Urine Clarity Clear Urine pH 7.0 pH (4.8-9.5) Urine Specific [place] 1.012 Urine Protein Negative mg/dL (NEGATIVE) Urine Glucose (UA) Negative mg/dL (NEGATIVE) Urine Ketones Negative mg/dL (NEGATIVE) Urine Blood Negative (NEGATIVE) Urine Nitrite Negative (NEGATIVE) Urine Bilirubin Negative (NEGATIVE) Urine Urobilinogen 4.0 mg/dL (0.2-1.9) Urine Leukocyte Esterase Negative (NEGATIVE) Urine RBC None /HPF (0-2/HPF) Urine WBC 3 /HPF (0-5/HPF) Urine Squamous Epithelial Cells Many /LPF (</=FEW) Urine Bacteria Negative /HPF (NONE-FEW) Urine Mucus None /HPF (NONE-FEW) Red Blood Count 4.29 M/uL (4.17-5.56) Mean Corpuscular Volume 91.9 fL (80.0-96.0) Mean Corpuscular Hemoglobin 31.4 pg (26.0-33.0) Mean Corpuscular Hemoglobin Concent 34.2 g/dL (32.0-36.0) Red Cell Distribution Width 14.9 % (11.5-14.5) Mean Platelet Volume 9.3 fL (7.2-11.1) Neutrophils (%) (Auto) 91.6 % (39.4-72.5) Lymphocytes (%) (Auto) 3.2 % (17.6-49.6) Monocytes (%) (Auto) 5.0 % (4.1-12.4) Eosinophils (%) (Auto) 0.0 % (0.4-6.7) Basophils (%) (Auto) 0.2 % (0.3-1.4) Nucleated RBC Relative Count (auto) 0.1 /100WBC Neutrophils # (Auto) 14.3 K/uL (2.0-7.4) Lymphocytes # (Auto) 0.5 K/uL (1.3-3.6) Monocytes # (Auto) 0.8 K/uL (0.3-1.0) Eosinophils # (Auto) 0.0 K/uL (0.0-0.5) Basophils # (Auto) 0.0 K/uL (0.0-0.1) Nucleated RBC Absolute Count (auto) 0.01 K/uL Sodium Level 136 mmol/L (137-145) Potassium Level 3.7 mmol/L (3.5-5.0) Chloride Level 99 mmol/L (98-107) Carbon Dioxide Level 26 mmol/L (22-31) Blood Urea Nitrogen 13 mg/dl (7-18) Creatinine 0.80 mg/dl (0.52-1.04) Glomerular Filtration Rate Calc > 60.0 Random Glucose 235 mg/dl (75-110) Calcium Level 8.7 mg/dl (8.4-10.2) Total Bilirubin 3.3 mg/dl (0.2-1.3) Aspartate Amino Transf (AST/SGOT) 342 U/L (0-35) Alanine Aminotransferase (ALT/SGPT) 278 U/L (0-56) Alkaline Phosphatase 149 U/L (0-126) Total Protein 6.8 g/dl (6.3-8.2) Albumin 3.6 g/dl (3.5-5.0) Amylase Level 83 U/L (0-110) Lipase 68 U/L (23-300) Chemistry Test 11/21/17 03:30 11/21/17 04:00 Urine Color Yellow Urine Clarity Clear Urine pH 7.0 pH (4.8-9.5) Urine Specific [place] 1.012 Urine Protein Negative mg/dL (NEGATIVE) Urine Glucose (UA) Negative mg/dL (NEGATIVE) Urine Ketones Negative mg/dL (NEGATIVE) Urine Blood Negative (NEGATIVE) Urine Nitrite Negative (NEGATIVE) Urine Bilirubin Negative (NEGATIVE) Urine Urobilinogen 4.0 mg/dL (0.2-1.9) Urine Leukocyte Esterase Negative (NEGATIVE) Urine RBC None /HPF (0-2/HPF) Urine WBC 3 /HPF (0-5/HPF) Urine Squamous Epithelial Cells Many /LPF (</=FEW) Urine Bacteria Negative /HPF (NONE-FEW) Urine Mucus None /HPF (NONE-FEW) White Blood Count 15.6 k/uL (4.5-11.0) Red Blood Count 4.29 M/uL (4.17-5.56) Hemoglobin 13.5 g/dL (12.0-16.0) Hematocrit 39.4 % (34.0-47.0) Mean Corpuscular Volume 91.9 fL (80.0-96.0) Mean Corpuscular Hemoglobin 31.4 pg (26.0-33.0) Mean Corpuscular Hemoglobin Concent 34.2 g/dL (32.0-36.0) Red Cell Distribution Width 14.9 % (11.5-14.5) Platelet Count 213 K/uL (150-450) Mean Platelet Volume 9.3 fL (7.2-11.1) Neutrophils (%) (Auto) 91.6 % (39.4-72.5) Lymphocytes (%) (Auto) 3.2 % (17.6-49.6) Monocytes (%) (Auto) 5.0 % (4.1-12.4) Eosinophils (%) (Auto) 0.0 % (0.4-6.7) Basophils (%) (Auto) 0.2 % (0.3-1.4) Nucleated RBC Relative Count (auto) 0.1 /100WBC Neutrophils # (Auto) 14.3 K/uL (2.0-7.4) Lymphocytes # (Auto) 0.5 K/uL (1.3-3.6) Monocytes # (Auto) 0.8 K/uL (0.3-1.0) Eosinophils # (Auto) 0.0 K/uL (0.0-0.5) Basophils # (Auto) 0.0 K/uL (0.0-0.1) Nucleated RBC Absolute Count (auto) 0.01 K/uL Glomerular Filtration Rate Calc > 60.0 Calcium Level 8.7 mg/dl (8.4-10.2) Total Bilirubin 3.3 mg/dl (0.2-1.3) Aspartate Amino Transf (AST/SGOT) 342 U/L (0-35) Alanine Aminotransferase (ALT/SGPT) 278 U/L (0-56) Alkaline Phosphatase 149 U/L (0-126) Total Protein 6.8 g/dl (6.3-8.2) Albumin 3.6 g/dl (3.5-5.0) Amylase Level 83 U/L (0-110) Lipase 68 U/L (23-300) Urinalysis Test 11/21/17 03:30 Urine Color Yellow Urine Clarity Clear Urine pH 7.0 pH (4.8-9.5) Urine Specific [place] 1.012 Urine Protein Negative mg/dL (NEGATIVE) Urine Glucose (UA) Negative mg/dL (NEGATIVE) Urine Ketones Negative mg/dL (NEGATIVE) Urine Blood Negative (NEGATIVE) Urine Nitrite Negative (NEGATIVE) Urine Bilirubin Negative (NEGATIVE) Urine Urobilinogen 4.0 mg/dL (0.2-1.9) Urine Leukocyte Esterase Negative (NEGATIVE) Urine RBC None /HPF (0-2/HPF) Urine WBC 3 /HPF (0-5/HPF) Urine Squamous Epithelial Cells Many /LPF (</=FEW) Urine Bacteria Negative /HPF (NONE-FEW) Urine Mucus None /HPF (NONE-FEW) (JAYDE MEZA MD) EKG/Imaging Imaging ABDOMEN/PELVIS WITH CONTRAST HISTORY: right flank pain TECHNIQUE: Following administration of IV contrast contiguous axial images acquired through the abdomen/pelvis. Coronal and sagittal reformatting also performed. One of the following dose optimization techniques was utilized in the performance of this exam: Automated exposure control; adjustment of the mA and/or kV according to the patient's size; or use of an iterative reconstruction technique. Specific details can be referenced in the facility's radiology CT exam operational policy. CONTRAST: 75 mL Isovue-370 COMPARISON: Comparison CT 07/25/2017 which is negative FINDINGS: Visualized lung bases: Negative. Hepatobiliary: Unremarkable liver. Remote cholecystectomy. Spleen: Spleen borderline enlarged unchanged. Adrenals: Negative. Pancreas: Negative. Kidneys ureters or bladder: Kidneys ureters and urinary bladder are normal. There is no evidence of ureteral nephrolithiasis or inflammatory changes. No evidence of obstruction. Genitalia: Remote partial hysterectomy. Left ovary remains intact. GI: Appendix is retrocecal and unremarkable. Large and small bowel are normal in appearance. No evidence of colonic diverticuli or evidence of inflammation. Vessels/spaces/nodes: Negative. Bones/soft tissues: Negative. Additional findings: None pertinent. IMPRESSION: Remote cholecystectomy and hysterectomy. Unremarkable exam. No acute pathology identified and specifically no evidence of ureteral nephrolithiasis. Report Dictated By: Faustino Bell MD at 11/21/2017 5:27 AM (MAHNAZ KELLY MD) ED Course/Re-evaluation Clinical Indication for ER IV: Hydration, IV Access ED Course Labs obtained with IV access. The patient was given an initial dose of morphine 4 mg with significantly helped her pain and Zofran 4 mg for her nausea. Her labs show her bilirubin, liver enzymes, and alkaline phosphatase all elevated and her white count is elevated with a left shift. CT scan of the abdomen and pelvis with contrast was obtained and does not show any acute abnormality. 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 I talked the radiologist as well and recommendation was made for MRCP (MAHNAZ KELLY MD) ED Course 11/21/2017 9:20:26 am MRCP returned showing mild diffuse hepatic steatosis, mild splenomegaly and mild prominent lower posterior mediastinal lymph node and left lower hilar node which may warrant imaging follow-up of the chest. No evidence of stone or obstruction. I discussed the case with the on-call surgeon ; he recommended that I consult and go over the case with him. I have called Dr. Love at this time awaiting recall 11/21/2017 9:45:18 am patient comfortable at this time I updated her that we are waiting to hear back from Dr. Love with final disposition recommendations. 11/21/2017 10:23:39 am case was discussed with Dr. Love. Recommendation is to draw blood cultures will start Zosyn 3.375 g since hours and a trend LFTs in the morning. Doctor Kevin has agreed to accept the patient at this time Decision to Disposition Date: Nov 21, 2017 Decision to Disposition Time: 10:23 (JAYDE MEZA MD) Depart Departure Latest Vital Signs Vital Signs Date Time Temp Pulse Resp B/P (MAP) Pulse Ox O2 Delivery O2 Flow Rate FiO2 11/21/17 10:20 87 89 11/21/17 10:00 118/72 (87) 11/21/17 09:30 98.7 11/21/17 03:16 17 Room Air (JAYDE MEZA MD) Impression: Primary Impression: Transaminitis Condition: Improved Disposition: Admitted from ER (to Dr Brown) Referrals: DERREK SIDHU MD (PCP) MAHNAZ KELLY MD Nov 21, 2017 03:33 JAYDE MEZA MD Nov 21, 2017 09:25
[2017-11-21] MEDS ORDERED: MORPHINE 4 MG/ML SDV IVP ONE ×2 (03:40→09:10)
[2017-11-21] MEDS ORDERED: ONDANSETRON 4 MG/2 ML VIAL IVP ONE (03:40)
[2017-11-21] MEDS ORDERED: NS(*) 0.9% 1000 ML BAG 1,000 ML IV ONE (03:40)
[2017-11-21] MEDS ORDERED: IOPAMIDOL 76% 75 ML INFUS BTL 75 ML ONE (03:52)
[2017-11-21 04:27] LABS: PLATELET COUNT, AUTOMATED 213 K/uL (150-450)
--- NOTE | 2017-11-21 05:38 | RADIOLOGY IMAGING REPORT ---
FACILITY: [facility] [place] PATIENT NAME: Shea Mendosa : 1975 MR: [id number] V: [id number] EXAM DATE: ORDERING PHYSICIAN: MAHNAZ KELLY TECHNOLOGIST: Location: [facility] Patient: Shea Mendosa : 1975 Visit/Account:[id number] Date of Sevice: 11/21/2017 ABDOMEN/PELVIS WITH CONTRAST HISTORY: right flank pain TECHNIQUE: Following administration of IV contrast contiguous axial images acquired through the abdom en/pelvis. Coronal and sagittal reformatting also performed. One of the following dose optimization techniques was utilized in the performance of this exam: Automated exposure control; adjustment of t he mA and/or kV according to the patient's size; or use of an iterative reconstruction technique. S pecific details can be referenced in the facility's radiology CT exam operational policy. CONTRAST: 75 mL Isovue-370 COMPARISON: Comparison CT 07/25/2017 which is negative FINDINGS: Visualized lung bases: Negative. Hepatobiliary: Unremarkable liver. Remote cholecystectomy. Spleen: Spleen borderline enlarged unchanged. Adrenals: Negative. Pancreas: Negative. Kidneys ureters or bladder: Kidneys ureters and urinary bladder are normal. There is no evidence of u reteral nephrolithiasis or inflammatory changes. No evidence of obstruction. Genitalia: Remote partial hysterectomy. Left ovary remains intact. GI: Appendix is retrocecal and unremarkable. Large and small bowel are normal in appearance. No evid ence of colonic diverticuli or evidence of inflammation. Vessels/spaces/nodes: Negative. Bones/soft tissues: Negative. Additional findings: None pertinent. IMPRESSION: Remote cholecystectomy and hysterectomy. Unremarkable exam. No acute pathology identified and specifically no evidence of ureteral nephrolithi asis. Report Dictated By: Faustino Bell MD at 11/21/2017 5:27 AM Report E-Signed By: Faustino Bell MD at 11/21/2017 5:35 AM WSN:[id number]
[2017-11-21] MEDS ORDERED: NS(*) 0.9% 50 ML BAG 50 ML ONE (07:21)
[2017-11-21] MEDS ORDERED: GADOBENATE 529MG/1ML 15ML VIAL IVP ONE (07:21)
--- NOTE | 2017-11-21 09:00 | RADIOLOGY IMAGING REPORT ---
FACILITY: [facility] PATIENT NAME: Shea Mendosa : 1975 MR: [id number] V: [id number] EXAM DATE: ORDERING PHYSICIAN: MAHNAZ KELLY TECHNOLOGIST: Location: [facility] [place] Patient: Shea Mendosa : 1975 Visit/Account:[id number] Date of Sevice: 11/21/2017 MRI CHOLANGIOPANCREAT W/WO CON Provided history: ruq pain Additional pertinent history: none TECHNIQUE: Multi-planar and multi-sequence imaging of the abdomen was performed without and with int ravenous contrast. Contrast dose: 15 mL Multihance intravenously . Additional focused sequences: Thin section and thick slab MRCP in the axial and coronal planes. COMPARISON STUDIES: CT 11/21/17 FINDINGS: Lower chest: Mildly prominent posterior mediastinal and left hilar lymph nodes are noted that may req uire follow-up. Better defined on the CT, there is a right periesophageal node measuring 1.5 x 2.5 cm and a lower left hilar node measuring 0.9 x 1.8 cm. Liver/biliary: There is mild diffuse loss of signal on opposed phase series consistent with mild diff use hepatic steatosis. There is no focal hepatic lesion. Gallbladder is absent. Bile ducts are normal. The source image MRCP sequences are degraded from motion and noise creating appearance of filling def ects in the lower common duct. A better assessment is the HASTE T2 coronal sequence revealing no evid ence of retained stone. Common bile duct measures just over 5 mm maximum. Pancreas: Negative Spleen: Mild homogeneous bilaterally with maximal AP diameter 15.5 cm in maximal craniocaudal diamete r 13.2 cm. Adrenal glands: Negative Kidneys/proximal ureter/retroperitoneum: Negative Bowel/peritoneum/mesenteries: Negative Vessels: Negative Musculoskeletal/body wall: Negative Lymph nodes: negative IMPRESSION: 1. Mild diffuse hepatic steatosis. No focal lesion no signs of cirrhosis or enlargement of the main p ortal vein suggests portal venous hypertension. 2. Mild splenomegaly of unclear origin. 3. Mildly prominent lower posterior mediastinal lymph node and lower left hilar node. This may warran t imaging follow-up of the chest. Report Dictated By: Momo Boyd MD at 11/21/2017 8:43 AM Report E-Signed By: Momo Boyd MD at 11/21/2017 8:57 AM WSN:[id number]
[2017-11-21] MEDS ORDERED: ESCI20TA38 PO (11:13)
[2017-11-21] MEDS ORDERED: DULO30CA35 PO (11:13)
[2017-11-21 11:15] VITALS: BP 120/80
[2017-11-21] MEDS ORDERED: NALOXONE HCL 0.4 MG/ML VIAL IVP PRN (11:20)
[2017-11-21] MEDS ORDERED: MORPHINE SULFATE 30 MG PCA IV PRN (11:20)
[2017-11-21] MEDS ORDERED: ONDANSETRON 4 MG/2 ML VIAL IVP PRN (11:25)
[2017-11-21] MEDS: PIPERACILLIN/TAZO*3.375GM VIAL 3.375 GM in NS(*) 0.9% 100 ML ADDVANT BAG 100 ML IVPB SCH ×2 (11:46→17:50)
[2017-11-21] MEDS: D5 1/2 NS(*) 1000 ML BAG 1,000 ML IV PRN ×2 (11:47→19:23)
[2017-11-21 15:11] VITALS: BP 132/77
--- NOTE | 2017-11-21 15:21 | Gen Surgery History & Physical ---
History of Present Illness Chief Complaint RUQ pain History of Present Illness This 42 year old female diabetic presents to ED with one day history of RUQ pain that radiates around to her back. This is associated with nausea, vomiting, fever, and chills. She has had similar episodes in past. She is s/p lap shaylee in [place] approximately 8 years ago for gallstones. She reports she had her first similar episode after having her gallbladder removed and she had a stone in he common bile duct and she required ERCP. Over the past few years she had less severe similar episodes. She was thoroughly evaluated in the ED with labs that revealed a leukocytosis and elevated LFTs including a bilirubin of 3.4. MRCP failed to show choledocholithiasis. Her lipase was normal. She is now admitted for IV antibiotics and close observation. History Home Meds Active Scripts Insulin Glargine,Hum.rec.anlog (Basaglar Kwikpen U-100) 100 Unit/Ml (3 Ml) Insuln.pen, 50 UNITS SQ HS, #2 BOX 3 Refills add 2 units every 3 days until Blood glucose 80-130 Not to exceed 70units per day Prov:DERREK SIDHU MD 11/14/17 Celecoxib (CELEBREX) 200 Mg Capsule, 200 MG PO QDAY PRN for pain, #30 CAPSULE 2 Refills Prov:DERREK SIDHU MD 11/10/17 Gabapentin (GABAPENTIN) 300 Mg Capsule, 3 CAP PO HS, #90 CAPSULE Prov:DERREK SIDHU MD 11/10/17 Reported Medications Escitalopram Oxalate (LEXAPRO) 20 Mg Tablet, 20 MG PO HS, TAB 11/21/17 Duloxetine Hcl (CYMBALTA) 30 Mg Capsule.dr, 30 MG PO HS, #5 CAP 11/21/17 Propranolol Hcl (PROPRANOLOL HCL) 10 Mg Tablet, 20 MG PO BID 11/21/17 Magnesium Oxide (MAGNESIUM OXIDE) 250 Mg Tablet, 250 MG PO HS 11/10/17 Cholecalciferol (Vitamin D3) (VITAMIN D3) 5,000 Unit Capsule, 5000 UNIT PO HS, CAPSULE 09/17/17 Folic Acid (FOLIC ACID) 1 Mg Tablet, 400 MG PO HS, TAB 09/08/17 Methotrexate Sodium (METHOTREXATE) 2.5 Mg Tablet, 2.5 MG PO DIRECTED, #1 7.5 mg once a week 09/08/17 Amitriptyline Hcl (AMITRIPTYLINE HCL) 10 Mg Tablet, 1-2 TAB PO QHS, TAB 09/08/17 Levothyroxine Sodium (LEVOTHYROXINE SODIUM) 0.112 Mg Tab, 0.112 MG PO QDAY, TAB 09/08/17 Discontinued Scripts Duloxetine Hcl (CYMBALTA) 30 Mg Capsule.dr, 30 MG PO QDAY, #30 CAP 3 Refills Prov:DERREK SIDHU MD 11/10/17 Pantoprazole Sodium (PANTOPRAZOLE SODIUM) 40 Mg Tablet.dr, 40 MG PO QDAY, #30 TAB.SR 3 Refills Prov:DERREK SIDHU MD 09/18/17 Escitalopram Oxalate (ESCITALOPRAM OXALATE) 20 Mg Tablet, 20 MG PO QDAY, #30 TAB 6 Refills Prov:DERREK SIDHU MD 05/22/17 Allergies: Coded Allergies: metformin (Verified Allergy, Intermediate, nausea, lightheadedness, 11/21/17) oxycodone (Verified Allergy, Mild, ITCHING, 11/21/17) Uncoded Allergies: SAGEBRUSH (Allergy, Intermediate, 01/31/15) CATS (Adverse Reaction, Mild, 01/31/15) Patient History: FH: HTN (hypertension) MOTHER, Age:60 FHx: diabetes mellitus MOTHER, Age:60 BROTHER OR SISTER Review of Systems All Systems Reviewed/Normal: Yes, Except as Noted Constitutional: Fever, Chills Gastrointestinal: Nausea, Vomiting, Abdominal Pain Exam General Appearance: Alert, Awake, No Acute Distress, Afebrile Neuro: No Gross deficits Eyes: PERRLA ENT: Moist Mucous Membranes Cardiovascular: Regular Rate and Rhythm GI: Other (Abdomen is obese, tender in RUQ, no peritoneal signs, no masses.) Lymph: No Adenopathy Extremities: Soft and Non Tender Psych: Alert & Oriented X3, Appropriate Mood & Affect Medical Decision Making Data Points Result Diagram: 11/21/170 11/21/17399 EKG / Imaging Monitor Interpretation: Normal Sinus Rhythm Pre-Admit Course Medical Record Review: Yes Assessment and Plan Problems: (1) Insulin-requiring or dependent type II diabetes mellitus Status: Chronic Assessment & Plan: Check BS q 6 h and low dose SSI while NPO. (2) Right upper quadrant abdominal pain Status: Acute Assessment & Plan: Concerning for recurrent common duct stones and cholangitis, though no stones seen at MRCP. Will treat with IV antibiotics and recheck labs in am. (3) Elevated liver enzymes Status: Resolved Assessment & Plan: Recheck in am (4) Morbid obesity Status: Chronic Time Spent: > 30 min Venous Thromboembolism VTE Risk Physician Assess for VTE Risk: Yes Patient's VTE Risk: High VTE Diagnostic Test 2 Days Prior to Admit: No Antithrombotics Is Pt On Any Antithrombotics?: No Prophylaxis Tx Contraindicated Pharmacological Contraindicati: Liver Disease AARTI NARAYANAN MD Nov 21, 2017 15:21
[2017-11-21] MEDS ORDERED: INSULIN HUM LISPRO 100 UN/ML 3 ML VIAL SUBQ PRN (15:25)
[2017-11-21] MEDS ORDERED: diphenhydrAMINE 25 MG CAP PO PRN (15:25)
[2017-11-21 20:01] VITALS: BP 106/64
[2017-11-21] MEDS ORDERED: diphenhydrAMINE 50 MG/ML VIAL IVP PRN (20:10)
[2017-11-22] VITALS (7 sets, daily range): BP systolic 102–144; BP diastolic 65–96; Ht 162.6 cm; Wt 119.5 kg
[2017-11-22] MEDS: PIPERACILLIN/TAZO*3.375GM VIAL 3.375 GM in NS(*) 0.9% 100 ML ADDVANT BAG 100 ML IVPB SCH ×3 (00:22→11:38)
[2017-11-22 06:30] LABS: PLATELET COUNT, AUTOMATED 166 K/uL (150-450)
[2017-11-22] MEDS: D5 1/2 NS(*) 1000 ML BAG 1,000 ML IV PRN (08:00)
[2017-11-22] MEDS: ENOXAPARIN 40 MG/0.4ML SYR SC SCH (09:15)
--- NOTE | 2017-11-22 10:19 | General Surgery Progress Note ---
Subjective Progress Notes Subjective Feeling better, pain has resolved, c/o itching from morphine [employer], no chills Physical Exam Vital Signs Date Time Temp Pulse Resp B/P (MAP) Pulse Ox O2 Delivery O2 Flow Rate FiO2 11/22/17 07:35 99.1 82 20 125/65 (85) 97 Nasal Cannula 0.5 Intake and Output 11/22/17 07:00 Intake Total 957 ml Balance 957 ml Intake IV Total 957 ml # Voids 2 General Appearance: Alert, Awake, No Acute Distress, Afebrile Neuro: No Gross deficits ENT: Moist Mucous Membranes Cardiovascular: Regular Rate and Rhythm Respiratory: No Respiratory Distress, Clear to Auscultation Extremities: Soft and Non Tender Psych: Alert & Oriented X3, Appropriate Mood & Affect Result Diagram: 11/22/17 0600 11/22/17 06 Monitor Interpretation: Normal Sinus Rhythm Assessment and Plan Problems: (1) Insulin-requiring or dependent type II diabetes mellitus Status: Chronic Assessment & Plan: Check BS q 6 h and low dose SSI while NPO. 11/22/2017: Advance diet to carb restricted diabetic diet and restart her home Lantus at 50 units q HS. (2) Right upper quadrant abdominal pain Status: Acute Assessment & Plan: Concerning for recurrent common duct stones and cholangitis, though no stones seen at MRCP. Will treat with IV antibiotics and recheck labs in am. 11/22/2017: WBC back to normal, LFT's improving, T Bili down to 3.0. Will continue IV antibiotics until blood cultures come back as no growth. ADAT and mobilize. Restart home meds. Recheck labs again in am. (3) Elevated liver enzymes Status: Resolved Assessment & Plan: Recheck in am (4) Morbid obesity Status: Chronic Time Spent: < 30 min Exam Sepsis Risk: No Definite Risk AARTI NARAYANAN MD Nov 22, 2017 10:19
[2017-11-22] MEDS: CELECOXIB 200 MG CAP PO SCH (17:26)
[2017-11-22] MEDS ORDERED: AMITRIPTYLINE HCL 10 MG TAB PO SCH (21:00)
[2017-11-22] MEDS ORDERED: DULoxetine HCL 30 MG CAPCR PO SCH (21:00)
[2017-11-22] MEDS ORDERED: GABAPENTIN 300 MG CAP PO SCH ×2 (21:00→21:10)
[2017-11-22] MEDS ORDERED: INSULIN GLARGINE 100 U/ML 3 ML PEN SUBQ SCH (21:00)
[2017-11-22] MEDS ORDERED: ESCITALOPRAM OXALATE 10 MG TAB PO SCH (21:00)
[2017-11-22] MEDS ORDERED: ONDANSETRON 4 MG ODT TABDP SL PRN (23:10)
[2017-11-23 03:25] VITALS: BP 116/72
[2017-11-23] MEDS ORDERED: LEVOTHYROXINE SOD 0.112 MG TAB PO SCH (06:00)
[2017-11-23 06:22] LABS: PLATELET COUNT, AUTOMATED 186 K/uL (150-450)
[2017-11-23 08:13] VITALS: BP 127/79
[2017-11-23] MEDS: ENOXAPARIN 40 MG/0.4ML SYR SC SCH (08:51)
[2017-11-23] MEDS: CELECOXIB 200 MG CAP PO SCH (08:51)
--- NOTE | 2017-11-23 09:40 | General Surgery Progress Note ---
Subjective Progress Notes Subjective No complaints Physical Exam Vital Signs Date Time Temp Pulse Resp B/P (MAP) Pulse Ox O2 Delivery O2 Flow Rate FiO2 11/23/17 08:13 98.6 78 16 127/79 (95) 94 Room Air 11/22/17 08:00 1.0 Intake and Output 11/23/17 07:00 Intake Total 1967 ml Balance 1967 ml Intake Oral 1110 ml IV Total 857 ml # Voids 2 # Bowel Movements 1 General Appearance: Alert, Awake, No Acute Distress, Afebrile Neuro: No Gross deficits Cardiovascular: Regular Rate and Rhythm Respiratory: No Respiratory Distress GI: Soft and Non-Tender (Bowel sounds present) Extremities: Soft and Non Tender Psych: Alert & Oriented X3, Appropriate Mood & Affect Result Diagram: 11/23/17 0559 11/23/17 0559 Monitor Interpretation: Normal Sinus Rhythm Assessment and Plan Problems: (1) Insulin-requiring or dependent type II diabetes mellitus Status: Chronic Assessment & Plan: Check BS q 6 h and low dose SSI while NPO. 11/22/2017: Advance diet to carb restricted diabetic diet and restart her home Lantus at 50 units q HS. 11/23/2017: Tolerating ADA diet, back on home Lantus. (2) Right upper quadrant abdominal pain Status: Acute Assessment & Plan: Concerning for recurrent common duct stones and cholangitis, though no stones seen at MRCP. Will treat with IV antibiotics and recheck labs in am. 11/22/2017: WBC back to normal, LFT's improving, T Bili down to 3.0. Will continue IV antibiotics until blood cultures come back as no growth. ADAT and mobilize. Restart home meds. Recheck labs again in am. 11/23/2017: Pain has resolved, Bili still at 3, will fractionate. WBC down, Remains afebrile, Blood cultures no growth. Tolerating diet and passing flatus. Ambulating. Back on home meds. Will DC home with follow up with PCP and referral to Dr. Chi Love at [facility] regarding recurrent episodes of suspected choledocholithiasis. (3) Elevated liver enzymes Status: Resolved Assessment & Plan: Fractionate bilirubin. (4) Morbid obesity Status: Chronic Time Spent: < 30 min Exam Sepsis Risk: No Definite Risk AARTI NARAYANAN MD Nov 23, 2017 09:40
--- NOTE | 2017-11-23 09:44 | Hospitalist Depart ---
Discharge Summary Reason for Hosp/Final Diag: (1) Insulin-requiring or dependent type II diabetes mellitus Status: Chronic Hospital Course & Plan: Check BS q 6 h and low dose SSI while NPO. 11/22/2017: Advance diet to carb restricted diabetic diet and restart her home Lantus at 50 units q HS. 11/23/2017: Tolerating ADA diet, back on home Lantus. (2) Right upper quadrant abdominal pain Status: Acute Hospital Course & Plan: Concerning for recurrent common duct stones and cholangitis, though no stones seen at MRCP. Will treat with IV antibiotics and recheck labs in am. 11/22/2017: WBC back to normal, LFT's improving, T Bili down to 3.0. Will co ntinue IV antibiotics until blood cultures come back as no growth. ADAT and mobilize. Restart home meds. Recheck labs again in am. 11/23/2017: Pain has resolved, Bili still at 3, will fractionate. WBC down, Remains afebrile, Blood cultures no growth. Tolerating diet and passing flatus. Ambulating. Back on home meds. Will DC home with follow up with PCP and referral to Dr. Chi Bear at [facility] regarding recurrent episodes of suspected choledocholithiasis. (3) Elevated liver enzymes Status: Resolved Hospital Course & Plan: Fractionate bilirubin. (4) Morbid obesity Status: Chronic Departure Weight (Pounds): 263 Weight (Ounces): 9.0 Result Diagram: 11/23/17 0559 11/23/17 0559 T Bili 3.1, fractionation pending. Blood cultures no growth. Condition: Improved Discharge: Home, Self Care Discharge Code Status: Full Code Time Spent: < 30 min Discharge Instructions Home Meds Active Scripts Insulin Glargine,Hum.rec.anlog (Basaglar Kwikpen U-100) 100 Unit/Ml (3 Ml) Insuln.pen, 50 UNITS SQ HS, #2 BOX 3 Refills add 2 units every 3 days until Blood glucose 80-130 Not to exceed 70units per day Prov:DERREK SIDHU MD 11/14/17 Celecoxib (CELEBREX) 200 Mg Capsule, 200 MG PO QDAY PRN for pain, #30 CAPSULE 2 Refills Prov:DERREK SIDHU MD 11/10/17 Gabapentin (GABAPENTIN) 300 Mg Capsule, 3 CAP PO HS, #90 CAPSULE Prov:DERREK SIDHU MD 11/10/17 Reported Medications Escitalopram Oxalate (LEXAPRO) 20 Mg Tablet, 20 MG PO HS, TAB 11/21/17 Duloxetine Hcl (CYMBALTA) 30 Mg Capsule.dr, 30 MG PO HS, #5 CAP 11/21/17 Propranolol Hcl (PROPRANOLOL HCL) 10 Mg Tablet, 20 MG PO BID 11/21/17 Magnesium Oxide (MAGNESIUM OXIDE) 250 Mg Tablet, 250 MG PO HS 11/10/17 Cholecalciferol (Vitamin D3) (VITAMIN D3) 5,000 Unit Capsule, 5000 UNIT PO HS, CAPSULE 09/17/17 Folic Acid (FOLIC ACID) 1 Mg Tablet, 400 MG PO HS, TAB 09/08/17 Methotrexate Sodium (METHOTREXATE) 2.5 Mg Tablet, 2.5 MG PO DIRECTED, #1 7.5 mg once a week 09/08/17 Amitriptyline Hcl (AMITRIPTYLINE HCL) 10 Mg Tablet, 1-2 TAB PO QHS, TAB 09/08/17 Levothyroxine Sodium (LEVOTHYROXINE SODIUM) 0.112 Mg Tab, 0.112 MG PO QDAY, TAB 09/08/17 Discontinued Scripts Duloxetine Hcl (CYMBALTA) 30 Mg Capsule., 30 MG PO QDAY, #30 CAP 3 Refills Prov:DERREK SIDHU MD 11/10/17 Pantoprazole Sodium (PANTOPRAZOLE SODIUM) 40 Mg Tablet.dr, 40 MG PO QDAY, #30 TAB.SR 3 Refills Prov:DERREK SIDHU MD 09/18/17 Escitalopram Oxalate (ESCITALOPRAM OXALATE) 20 Mg Tablet, 20 MG PO QDAY, #30 TAB 6 Refills Prov:DERREK SIDHU MD 05/22/17 Diet: Diabetic Activity: As Tolerated Special Instructions: Call Dr. Chi Bear's office at [phone] to make an appointment to see him regarding possible need for ERCP. Copies to: TRACIE BEAR MD ; Venous Thromboembolism Antithrombotics Is Pt On Any Antithrombotics?: No Prophylaxis Tx Contraindicated Pharmacological Contraindicati: Pt at Low Risk for VTE Mechanical Contraindications: Pt at Low Risk for VTE AARTI NARAYANAN MD Nov 23, 2017 09:44
== END 2017-11-23 11:35 | disposition home or self-care (01) | DRG 445 ==
LOC: ER 04:10 → MED 10:18
PROVIDERS: ADMIT Surgery; ATTEND Surgery
DX: K80.50 Calculus of bile duct without cholangitis or cholecystitis without obstruction (principal); Z68.42 Body mass index [BMI] 45.0-49.9, adult; E11.9 Type 2 diabetes mellitus without complications; R94.5 Abnormal results of liver function studies; E66.01 Morbid (severe) obesity due to excess calories; T40.2X5A Adverse effect of other opioids, initial encounter; Y92.230 Patient room in hospital as the place of occurrence of the external cause; Z88.5 Allergy status to narcotic agent; Z90.49 Acquired absence of other specified parts of digestive tract; Z79.4 Long term (current) use of insulin
CPT/HCPCS: 36415; 36416; 74177; 74183; 81001; 82040; 82150; 82247; 82248; 82310; 82374; 82435; 82565; 82947; 82948; 83690; 84075; 84132; 84155; 84295; 84450; 84460; 84520; 85025; 87040; 96361; 96374; 96375; 96376; 99284; A9577; J1200; J1650; J1815; J2270; J2405; J2543; J7030; J7050; Q9967; S0119

== ENCOUNTER 2017-11-24 08:34 | Outpatient (RCR) | payer OTHER ==
[2017-11-22 13:46] VITALS: BMI 45.1
[~2017-11-24 08:34] MED LIST changes: +ESCI20TA38 PO; -HYDR-4309 PO; +HYDR-653 PO; +PROP10TA58 PO
--- NOTE | 2017-11-24 11:37 | Transitional Care Management ---
TCM Discharge Criteria Transitional Care Comment: 11/22 Randi states that she does daily food logging and has been a diabetic for 10 years and knows when she feels bad so checks BS at this time. Not sure what is going on with her LFT's but it feels like I get stones and I get really sick with nausea, vomiting and pain after lots of vomiting the pain seems to decrease.and gradually subside." "I work at the [employer] in [place] and lately it has been hard d/t nausea, vomiting-would really like to know what is really happening." 11/24 Unable to contact-left message TEE DONALD Nov 24, 2017 11:37
--- NOTE | 2017-11-25 12:49 | Transitional Care Management ---
TCM Discharge Criteria Transitional Care Comment: 11/22 Randi states that she does daily food logging and has been a diabetic for 10 years and knows when she feels bad so checks BS at this time. Not sure what is going on with her LFT's but it feels like I get stones and I get really sick with nausea, vomiting and pain after lots of vomiting the pain seems to decrease.and gradually subside." "I work at the [employer] in [place] and lately it has been hard d/t nausea, vomiting-would really like to know what is really happening." 11/24 Unable to contact-left message 11/25 Unable to contact-left a message. Copies to: DERREK SIDHU MD ; TEE DONALD Nov 25, 2017 12:49
--- NOTE | 2017-11-29 14:13 | Transitional Care Management ---
TCM Discharge Criteria Transitional Care Comment: 11/22 Randi states that she does daily food logging and has been a diabetic for 10 years and knows when she feels bad so checks BS at this time. Not sure what is going on with her LFT's but it feels like I get stones and I get really sick with nausea, vomiting and pain after lots of vomiting the pain seems to decrease.and gradually subside." "I work at the [email or web address] in [place] and lately it has been hard d/t nausea, vomiting-would really like to know what is really happening." 11/24 Unable to contact-left message 11/25 Unable to contact-left a message. 11/29 Left message. GEORGINA INGRAM Nov 29, 2017 14:13
--- NOTE | 2017-12-02 14:47 | Transitional Care Management ---
TCM Discharge Criteria Transitional Care Comment: 11/22 Randi states that she does daily food logging and has been a diabetic for 10 years and knows when she feels bad so checks BS at this time. Not sure what is going on with her LFT's but it feels like I get stones and I get really sick with nausea, vomiting and pain after lots of vomiting the pain seems to decrease.and gradually subside." "I work at the [employer] in [place] and lately it has been hard d/t nausea, vomiting-would really like to know what is really happening." 11/24 Unable to contact-left message 11/25 Unable to contact-left a message. 11/29 Left message. 12/02 Unable to contact, discharged from the program. GEORGINA INGRAM Dec 02, 2017 14:47
--- NOTE | 2017-12-02 15:43 | Transitional Care Management ---
Assessment Visit Type: Telephone Visit Spoke with: Shea Cardiac: WNL Respiratory: WNL GI: Nutrition: WNL Constipation?: No : WNL Musculoskeletal, Exercise: WNL Mobility/Falls: WNL Integumentary: WNL Feeling of Well Being: WNL Socialization: WNL Pain/Management: WNL Scheduled Follow-Up with [facility]: Yes (12/02 Scheduled for an ERCP in [place] on 12/09) Following Discharge Instructio: Yes TCM Discharge Criteria Transitional Care Comment: 11/22 Randi states that she does daily food logging and has been a diabetic for 10 years and knows when she feels bad so checks BS at this time. Not sure what is going on with her LFT's but it feels like I get stones and I get really sick with nausea, vomiting and pain after lots of vomiting the pain seems to decrease.and gradually subside." "I work at the [employer] in [place] and lately it has been hard d/t nausea, vomiting-would really like to know what is really happening." 11/24 Unable to contact-left message 11/25 Unable to contact-left a message. 11/29 Left message. 12/02Unable to contact, discharged from the program. he returned the call. She is doing well, symptoms have resolved, has an ERCP scheduled on 12/09, which see is following up with Dr Love for. GEORGINA INGRAM Dec 02, 2017 15:43
--- NOTE | 2017-12-10 13:17 | Transitional Care Management ---
Assessment Cardiac: WNL Respiratory: WNL GI: Nutrition: WNL Constipation?: No : WNL Musculoskeletal, Exercise: WNL Mobility/Falls: WNL Integumentary: WNL Feeling of Well Being: WNL Socialization: WNL Pain/Management: WNL Scheduled Follow-Up with [facility]: Yes (12/02 Scheduled for an ERCP in [place] on 12/09) Following Discharge Instructio: Yes TCM Discharge Criteria Transitional Care Comment: 11/22 Randi states that she does daily food logging and has been a diabetic for 10 years and knows when she feels bad so checks BS at this time. Not sure what is going on with her LFT's but it feels like I get stones and I get really sick with nausea, vomiting and pain after lots of vomiting the pain seems to decrease.and gradually subside." "I work at the [employer] in [employer] and lately it has been hard d/t nausea, vomiting-would really like to know what is really happening." 11/24 Unable to contact-left message 11/25 Unable to contact-left a message. 11/29 Left message. 12/02Unable to contact, discharged from the program. he returned the call. She is doing well, symptoms have resolved, has an ERCP scheduled on 12/09, which see is following up with Dr Love for. 12/10 Pt had been in ER twice on 12/08 then transferred to [facility] for further workup for abd px, N&V. Copies to: DERREK SIDHU MD ; TEE DONALD Dec 10, 2017 13:17
[2017-12-17] MEDS ORDERED: INSU100I10 SQ (16:36)
== END 2017-12-16 18:00 | disposition home or self-care (01) ==
LOC: TCM 08:34
PROVIDERS: ATTEND Nurse Practitioner
DX: Z02.9 Encounter for administrative examinations, unspecified (principal)

== ENCOUNTER 2017-12-08 09:12 | Emergency (ER) | payer OTHER ==
[2017-11-22 13:46] VITALS: Wt 119.3 kg
[2017-12-08] MEDS ORDERED: NS(*) 0.9% 1000 ML BAG 1,000 ML IV ONE (09:30)
--- NOTE | 2017-12-08 09:30 | ER Report ---
History and Physical Time Seen By : 09:30 Hx. of Stated Complaint: PATIENT REPORTS THAT SHE HAD A FASTING GLUCOSE OF 314 THIS MORNING AND SHE WAS ALSO CONCERNED THAT HER HEART RATE WAS 93 HPI/ROS 42-year-old female with a history of diabetes and fibromyalgia presents feeling "abnormal." She states that she otherwise feels well. She noticed her glucose was higher than usual this morning. Then she packing checker her HR which is normally in the 70s and her temp was 97.7 which is also elevated for her. She otherwise has no pain, and no symptoms of an infection. She has an ERCP scheduled for tomorrow. She feels like she may be nervous about the procedure, and that is causing her "abnormal." vital signs. She otherwise feels at her baseline. Remainder of the 14 system rev: Yes Allergies: Coded Allergies: metformin (Verified Allergy, Intermediate, nausea, lightheadedness, 11/21/17) oxycodone (Verified Allergy, Mild, ITCHING, 11/21/17) Uncoded Allergies: SAGEBRUSH (Allergy, Intermediate, 01/31/15) CATS (Adverse Reaction, Mild, 01/31/15) Home Meds Active Scripts Insulin Glargine,Hum.rec.anlog (Basaglar Kwikpen U-100) 100 Unit/Ml (3 Ml) Insuln.pen, 50 UNITS SQ HS, #2 BOX 3 Refills add 2 units every 3 days until Blood glucose 80-130 Not to exceed 70units per day Prov:DERREK SIDHU MD 11/14/17 Celecoxib (CELEBREX) 200 Mg Capsule, 200 MG PO QDAY PRN for pain, #30 CAPSULE 2 Refills Prov:DERREK SIDHU MD 11/10/17 Gabapentin (GABAPENTIN) 300 Mg Capsule, 3 CAP PO HS, #90 CAPSULE Prov:DERREK SIDHU MD 11/10/17 Reported Medications Escitalopram Oxalate (LEXAPRO) 20 Mg Tablet, 20 MG PO HS, TAB 11/21/17 Duloxetine Hcl (CYMBALTA) 30 Mg Capsule.dr, 30 MG PO HS, #5 CAP 11/21/17 Propranolol Hcl (PROPRANOLOL HCL) 10 Mg Tablet, 20 MG PO BID 11/21/17 Magnesium Oxide (MAGNESIUM OXIDE) 250 Mg Tablet, 250 MG PO HS 11/10/17 Cholecalciferol (Vitamin D3) (VITAMIN D3) 5,000 Unit Capsule, 5000 UNIT PO HS, CAPSULE 09/17/17 Folic Acid (FOLIC ACID) 1 Mg Tablet, 400 MG PO HS, TAB 09/08/17 Methotrexate Sodium (METHOTREXATE) 2.5 Mg Tablet, 2.5 MG PO DIRECTED, #1 7.5 mg once a week 09/08/17 Amitriptyline Hcl (AMITRIPTYLINE HCL) 10 Mg Tablet, 1-2 TAB PO QHS, TAB 09/08/17 Levothyroxine Sodium (LEVOTHYROXINE SODIUM) 0.112 Mg Tab, 0.112 MG PO QDAY, TAB 09/08/17 Reviewed Nurses Notes: Yes Old Medical Records Reviewed: Yes Hx Smoking: No Smoking Status: Never Smoker Exposure to Second Hand Smoke?: No Hx Substance Use Disorder: No Hx Alcohol Use: No Constitutional Vital Sign - Last 24 Hours 12/08/17 12/08/17 12/08/17 12/08/17 09:18 09:23 09:42 09:45 Temp 97.9 Pulse 108 100 Resp 22 B/P (MAP) 145/101 145/101 (116) 122/82 (95) Pulse Ox 97 94 O2 Delivery Room Air 12/08/17 12/08/17 12/08/17 10:00 10:12 10:30 Pulse 90 B/P (MAP) 116/88 (97) 123/79 (94) Pulse Ox 93 Physical Exam General Appearance: The patient is alert, has no immediate need for airway protection and no current signs of toxicity. Eyes: Pupils equal and round no injection. Respiratory: Chest is non tender, lungs are clear to auscultation. Cardiac: regular rate and rhythm Gastrointestinal: Abdomen is soft and non tender, no masses, bowel sounds normal. Musculoskeletal: No flank TTP. Neck: Neck is supple and non tender. Extremities have full range of motion and are non tender. Skin: No rashes or lesions. DIFFERENTIAL DIAGNOSIS: After history and physical exam differential diagnosis was considered for infection, PE, RI, hyperglycemia, DKA Medical Decision Making ED Course/Re-evaluation ED Course Otherwise feels well, but was concerned with an elevated glucose and an elevated her rate at she says she normally doesn't have. No evidence of infection. She does report that she has an ERCP scheduled for tomorrow, and admits that she is nervous about it. We discussed stress response and how it could be leading to her increased heart rate as well as hyperglycemia. She denies any chest pain or shortness of breath. Heart rate in the low 90s. No clinical evidence of DKA. Given IV fluids. Will follow her pre-ERCP instructions for the day. If her symptoms persist after the ERCP, she will see her PCM or return to the ED Decision to Disposition Date: Dec 08, 2017 Decision to Disposition Time: 10:33 Depart Departure Latest Vital Signs Vital Signs Date Time Temp Pulse Resp B/P (MAP) Pulse Ox O2 Delivery O2 Flow Rate FiO2 12/08/17 10:30 123/79 (94) 12/08/17 10:12 90 93 12/08/17 09:18 97.9 22 Room Air Impression: Primary Impression: Palpitation Condition: Improved Disposition: HOME OR SELF-CARE Referrals: DERREK SIDHU MD (PCP) Patient Instructions: Diabetic Hyperglycemia (ED) DEVEN COX MD Dec 08, 2017 09:30
[2017-12-08 10:30] VITALS: BP 123/79
== END 2017-12-08 10:49 | disposition home or self-care (01) ==
LOC: ER 09:13
DX: R00.2 Palpitations (principal)
CPT/HCPCS: 96360; 99283; J7030

== ENCOUNTER 2017-12-08 23:30 | Emergency (ER) | payer OTHER ==
[2017-11-22 13:46] VITALS: Wt 119.3 kg
--- NOTE | 2017-12-08 23:38 | ER Report ---
History and Physical Time Seen By : 23:42 HPI/ROS CHIEF COMPLAINT: Chills and right upper quadrant pain HISTORY OF PRESENT ILLNESS: 42-year-old female resents with right upper quadrant pain, fever and chills. Patient is supposed to have an ERCP tomorrow. Started to have a common bile duct stone. She was admitted 2 weeks ago with fever and chills. Thought to be ascending cholangitis. Patient is here complaining of severe right upper quadrant pain. She is vomiting actively. REVIEW OF SYSTEMS: Respiratory: No cough, no dyspnea. Cardiovascular: No chest pain, no palpitations. Gastrointestinal: As above Musculoskeletal: No back pain. Allergies: Coded Allergies: metformin (Verified Allergy, Intermediate, nausea, lightheadedness, 12/09/17) oxycodone (Verified Allergy, Mild, ITCHING, 12/09/17) lisinopril (Verified Adverse Reaction, Unknown, Vomit, 12/09/17) morphine (Verified Adverse Reaction, Unknown, itching , 12/09/17) Uncoded Allergies: SAGEBRUSH (Allergy, Intermediate, 01/31/15) CATS (Adverse Reaction, Mild, 01/31/15) Home Meds Active Scripts Insulin Glargine,Hum.rec.anlog (Basaglar Kwikpen U-100) 100 Unit/Ml (3 Ml) I nsuln.pen, 50 UNITS SQ HS, #2 BOX 3 Refills add 2 units every 3 days until Blood glucose 80-130 Not to exceed 70units per day Prov:DERREK SIDHU MD 11/14/17 Celecoxib (CELEBREX) 200 Mg Capsule, 200 MG PO QDAY PRN for pain, #30 CAPSULE 2 Refills Prov:DERREK SIDHU MD 11/10/17 Gabapentin (GABAPENTIN) 300 Mg Capsule, 3 CAP PO HS, #90 CAPSULE Prov:DERREK SIDHU MD 11/10/17 Reported Medications Escitalopram Oxalate (LEXAPRO) 20 Mg Tablet, 20 MG PO HS, TAB 11/21/17 Duloxetine Hcl (CYMBALTA) 30 Mg Capsule.dr, 30 MG PO HS, #5 CAP 11/21/17 Propranolol Hcl (PROPRANOLOL HCL) 10 Mg Tablet, 20 MG PO BID 11/21/17 Magnesium Oxide (MAGNESIUM OXIDE) 250 Mg Tablet, 250 MG PO HS 11/10/17 Cholecalciferol (Vitamin D3) (VITAMIN D3) 5,000 Unit Capsule, 5000 UNIT PO HS, CAPSULE 09/17/17 Folic Acid (FOLIC ACID) 1 Mg Tablet, 400 MG PO HS, TAB 09/08/17 Methotrexate Sodium (METHOTREXATE) 2.5 Mg Tablet, 2.5 MG PO DIRECTED, #1 7.5 mg once a week 09/08/17 Amitriptyline Hcl (AMITRIPTYLINE HCL) 10 Mg Tablet, 1-2 TAB PO QHS, TAB 09/08/17 Levothyroxine Sodium (LEVOTHYROXINE SODIUM) 0.112 Mg Tab, 0.112 MG PO QDAY, TAB 09/08/17 Reviewed Nurses Notes: Yes Old Medical Records Reviewed: Yes Hx Smoking: No Smoking Status: Never Smoker Exposure to Second Hand Smoke?: No Hx Substance Use Disorder: No Hx Alcohol Use: No Constitutional Vital Sign - Last 24 Hours 12/08/17 12/08/17 12/09/17 12/09/17 23:34 23:38 00:30 00:35 Temp 99.1 Pulse 112 113 107 Resp 17 B/P (MAP) 148/91 148/91 (110) 125/77 (93) Pulse Ox 94 98 98 O2 Delivery Room Air 12/09/17 12/09/17 12/09/17 12/09/17 01:00 01:05 01:10 01:30 Pulse 111 B/P (MAP) 134/85 (101) 124/77 (93) Pulse Ox 99 99 12/09/17 12/09/17 12/09/17 12/09/17 01:40 01:45 02:00 02:15 Pulse 109 111 108 B/P (MAP) 129/77 (94) Pulse Ox 93 92 91 12/09/17 02:23 B/P (MAP) 113/86 (95) Intake and Output 12/08/17 12/08/17 12/09/17 15:00 23:00 07:00 Intake Total 2300 ml Balance 2300 ml Physical Exam Vital signs stable, tachycardia, pulse ox normal, afebrile General Appearance: The patient is alert, has no immediate need for airway protection and no current signs of toxicity. Moderate distress, slowly pale appearing, skin warm and dry HEENT: Pupils equal and round no injection. Oropharynx without redness or exudate Respiratory: Chest is non tender, lungs are clear to auscultation. Cardiac: regular rate and rhythm Gastrointestinal: Abdomen is soft, moderate right upper quadrant tenderness, no masses, bowel sounds normal. Musculoskeletal: Neck: Neck is supple and non tender. Extremities have full range of motion and are non tender. Skin: No rashes or lesions. DIFFERENTIAL DIAGNOSIS: After history and physical exam differential diagnosis was considered for abdominal pain including but not limited to appendicitis, cholecystitis, gastritis, cholangitis and urinary tract infection. Medical Decision Making Data Points Result Diagram: 12/08/17 0595 12/08/17 5351 Laboratory Hematology Test 12/08/17 23:34 12/08/17 23:55 Urine Color Yellow Urine Clarity Clear Urine pH 7.0 pH (4.8-9.5) Urine Specific [place] 1.014 Urine Protein Negative mg/dL (NEGATIVE) Urine Glucose (UA) Negative mg/dL (NEGATIVE) Urine Ketones Negative mg/dL (NEGATIVE) Urine Blood Negative (NEGATIVE) Urine Nitrite Negative (NEGATIVE) Urine Bilirubin Negative (NEGATIVE) Urine Urobilinogen 4.0 mg/dL (0.2-1.9) Urine Leukocyte Esterase Negative (NEGATIVE) Urine RBC 1 /HPF (0-2/HPF) Urine WBC 1 /HPF (0-5/HPF) Urine Squamous Epithelial Cells Few /LPF (</=FEW) Urine Bacteria Negative /HPF (NONE-FEW) Urine Mucus None /HPF (NONE-FEW) Red Blood Count 4.51 M/uL (4.17-5.56) Mean Corpuscular Volume 90.7 fL (80.0-96.0) Mean Corpuscular Hemoglobin 31.1 pg (26.0-33.0) Mean Corpuscular Hemoglobin Concent 34.3 g/dL (32.0-36.0) Red Cell Distribution Width 14.1 % (11.5-14.5) Mean Platelet Volume 9.2 fL (7.2-11.1) Neutrophils (%) (Auto) 84.1 % (39.4-72.5) Lymphocytes (%) (Auto) 10.2 % (17.6-49.6) Monocytes (%) (Auto) 4.6 % (4.1-12.4) Eosinophils (%) (Auto) 0.6 % (0.4-6.7) Basophils (%) (Auto) 0.5 % (0.3-1.4) Nucleated RBC Relative Count (auto) 0.0 /100WBC Neutrophils # (Auto) 9.6 K/uL (2.0-7.4) Lymphocytes # (Auto) 1.2 K/uL (1.3-3.6) Monocytes # (Auto) 0.5 K/uL (0.3-1.0) Eosinophils # (Auto) 0.1 K/uL (0.0-0.5) Basophils # (Auto) 0.1 K/uL (0.0-0.1) Nucleated RBC Absolute Count (auto) 0.00 K/uL Sodium Level 138 mmol/L (137-145) Potassium Level 3.8 mmol/L (3.5-5.0) Chloride Level 99 mmol/L (98-107) Carbon Dioxide Level 26 mmol/L (22-31) Blood Urea Nitrogen 11 mg/dl (7-18) Creatinine 1.00 mg/dl (0.52-1.04) Glomerular Filtration Rate Calc > 60.0 Random Glucose 217 mg/dl (75-110) Lactate 4.1 mmol/L (0.7-2.1) Calcium Level 9.3 mg/dl (8.4-10.2) Total Bilirubin 1.7 mg/dl (0.2-1.3) Aspartate Amino Transf (AST/SGOT) 254 U/L (0-35) Alanine Aminotransferase (ALT/SGPT) 151 U/L (0-56) Alkaline Phosphatase 174 U/L (0-126) Total Protein 7.2 g/dl (6.3-8.2) Albumin 3.9 g/dl (3.5-5.0) Amylase Level 90 U/L (0-110) Lipase 139 U/L (23-300) Chemistry Test 12/08/17 23:34 12/08/17 23:55 Urine Color Yellow Urine Clarity Clear Urine pH 7.0 pH (4.8-9.5) Urine Specific [place] 1.014 Urine Protein Negative mg/dL (NEGATIVE) Urine Glucose (UA) Negative mg/dL (NEGATIVE) Urine Ketones Negative mg/dL (NEGATIVE) Urine Blood Negative (NEGATIVE) Urine Nitrite Negative (NEGATIVE) Urine Bilirubin Negative (NEGATIVE) Urine Urobilinogen 4.0 mg/dL (0.2-1.9) Urine Leukocyte Esterase Negative (NEGATIVE) Urine RBC 1 /HPF (0-2/HPF) Urine WBC 1 /HPF (0-5/HPF) Urine Squamous Epithelial Cells Few /LPF (</=FEW) Urine Bacteria Negative /HPF (NONE-FEW) Urine Mucus None /HPF (NONE-FEW) White Blood Count 11.4 k/uL (4.5-11.0) Red Blood Count 4.51 M/uL (4.17-5.56) Hemoglobin 14.0 g/dL (12.0-16.0) Hematocrit 40.9 % (34.0-47.0) Mean Corpuscular Volume 90.7 fL (80.0-96.0) Mean Corpuscular Hemoglobin 31.1 pg (26.0-33.0) Mean Corpuscular Hemoglobin Concent 34.3 g/dL (32.0-36.0) Red Cell Distribution Width 14.1 % (11.5-14.5) Platelet Count 252 K/uL (150-450) Mean Platelet Volume 9.2 fL (7.2-11.1) Neutrophils (%) (Auto) 84.1 % (39.4-72.5) Lymphocytes (%) (Auto) 10.2 % (17.6-49.6) Monocytes (%) (Auto) 4.6 % (4.1-12.4) Eosinophils (%) (Auto) 0.6 % (0.4-6.7) Basophils (%) (Auto) 0.5 % (0.3-1.4) Nucleated RBC Relative Count (auto) 0.0 /100WBC Neutrophils # (Auto) 9.6 K/uL (2.0-7.4) Lymphocytes # (Auto) 1.2 K/uL (1.3-3.6) Monocytes # (Auto) 0.5 K/uL (0.3-1.0) Eosinophils # (Auto) 0.1 K/uL (0.0-0.5) Basophils # (Auto) 0.1 K/uL (0.0-0.1) Nucleated RBC Absolute Count (auto) 0.00 K/uL Glomerular Filtration Rate Calc > 60.0 Lactate 4.1 mmol/L (0.7-2.1) Calcium Level 9.3 mg/dl (8.4-10.2) Total Bilirubin 1.7 mg/dl (0.2-1.3) Aspartate Amino Transf (AST/SGOT) 254 U/L (0-35) Alanine Aminotransferase (ALT/SGPT) 151 U/L (0-56) Alkaline Phosphatase 174 U/L (0-126) Total Protein 7.2 g/dl (6.3-8.2) Albumin 3.9 g/dl (3.5-5.0) Amylase Level 90 U/L (0-110) Lipase 139 U/L (23-300) Urinalysis Test 12/08/17 23:34 Urine Color Yellow Urine Clarity Clear Urine pH 7.0 pH (4.8-9.5) Urine Specific [place] 1.014 Urine Protein Negative mg/dL (NEGATIVE) Urine Glucose (UA) Negative mg/dL (NEGATIVE) Urine Ketones Negative mg/dL (NEGATIVE) Urine Blood Negative (NEGATIVE) Urine Nitrite Negative (NEGATIVE) Urine Bilirubin Negative (NEGATIVE) Urine Urobilinogen 4.0 mg/dL (0.2-1.9) Urine Leukocyte Esterase Negative (NEGATIVE) Urine RBC 1 /HPF (0-2/HPF) Urine WBC 1 /HPF (0-5/HPF) Urine Squamous Epithelial Cells Few /LPF (</=FEW) Urine Bacteria Negative /HPF (NONE-FEW) Urine Mucus None /HPF (NONE-FEW) ED Course/Re-evaluation Clinical Indication for ER IV: Hydration, IV Access ED Course Patient was admitted to an examination room. H&P was done. The differential diagnoses was considered. Patient with chills. She is tachycardic. Suspicious for sepsis. She's had severe right upper quadrant pain. 2 weeks ago. She was admitted for acute cholangitis. She had an MRCP, which was negative. She is referred and is supposed to have tomorrow at ERCP by Dr. Love at the [facility]. I think that she is reinfected tonight. Her laboratories come back suggesting sepsis with a lactate of 4.1. She's given Zosyn IV. She is aggressively fluid resuscitated. She was not hypotensive. She will likely need to be treated for a couple days to settle down her infection before the ERCP could be performed. Dr. Love was consulted on the phone and accepts the patient for transfer to [facility] for admission to his service 12/09/2017 1:13:21 am case discussed with Dr. Rai Love, general surgeon, who accepts the patient for transfer to his facility [place] [facility]. Decision to Disposition Date: Dec 09, 2017 Decision to Disposition Time: 01:13 Critical Care Time I spent a total of 30 minutes of critical care time in obtaining history, performing a physical exam, bedside monitoring of interventions, collecting and interpreting tests and discussion with consultants but not including time spent performing procedures. Depart Departure Latest Vital Signs Vital Signs Date Time Temp Pulse Resp B/P (MAP) Pulse Ox O2 Delivery O2 Flow Rate FiO2 12/09/17 02:23 113/86 (95) 12/09/17 02:15 108 91 12/08/17 23:34 99.1 17 Room Air Impression: Primary Impression: Cholangitis Additional Impressions: Sepsis Insulin-requiring or dependent type II diabetes mellitus Elevated liver enzymes Condition: Improved Disposition: XFER TO ACUTE CARE HOSPITAL Referrals: DERREK SIDHU MD (PCP) Problem Qualifiers Additional Impressions: Sepsis Sepsis type: sepsis due to unspecified organism Qualified Codes: A41.9 - Sepsis, unspecified organism EDMUND PRESTON DO Dec 08, 2017 23:38
[2017-12-08] MEDS ORDERED: NS(*) 0.9% 1000 ML BAG 1,000 ML IV ONE (23:44)
[2017-12-08] MEDS ORDERED: PROMETHAZINE 25 MG/ML 1 ML AMP IVP ONE (23:45)
[2017-12-08] MEDS ORDERED: ONDANSETRON 4 MG/2 ML VIAL IVP ONE (23:45)
[2017-12-08] MEDS ORDERED: fentaNYL CITR 100 MCG/2 ML AMP IVP ONE (23:45)
[2017-12-09 00:11] LABS: PLATELET COUNT, AUTOMATED 252 K/uL (150-450)
[2017-12-09] MEDS ORDERED: PIPERACILLIN/TAZO*3.375GM VIAL 3.375 GM in NS(*) 0.9% 100 ML ADDVANT BAG 100 ML IVPB ONE (01:05)
[2017-12-09] MEDS ORDERED: LR(*) 1000 ML BAG 1,000 ML IV PRN ×2 (01:15→01:55)
[2017-12-09 02:23] VITALS: BP 113/86
== END 2017-12-09 02:30 | disposition short-term general hospital (02) ==
LOC: ER 23:48
DX: K83.09 Other cholangitis (principal); A41.9 Sepsis, unspecified organism; E11.9 Type 2 diabetes mellitus without complications; Z79.4 Long term (current) use of insulin; R94.5 Abnormal results of liver function studies
CPT/HCPCS: 36415; 81001; 82150; 83605; 83690; 85025; 87040; 96361; 96365; 96375; 99291; J2405; J2543; J2550; J3010; J7030; J7050; J7120; 82040; 82247; 82310; 82374; 82435; 82565; 82947; 84075; 84132; 84155; 84295; 84450; 84460; 84520

== ENCOUNTER → 2017-12-09 | Outpatient (CLI) | payer OTHER ==
[2017-11-22 13:46] VITALS: BMI 45.1
== END ==
LOC: AMB 02:12
PROVIDERS: ATTEND Nurse Practitioner
DX: A41.9 Sepsis, unspecified organism (principal); K80.80 Other cholelithiasis without obstruction
CPT/HCPCS: A0425; A0426

== ENCOUNTER → 2017-12-17 | Outpatient (CLI) | payer OTHER ==
[2017-11-22 13:46] VITALS: BMI 45.1
[2017-12-17 17:12] LABS: PLATELET COUNT, AUTOMATED 319 K/uL (150-450)
== END ==
LOC: LAB 16:44
PROVIDERS: ATTEND Internal Medicine
DX: K80.50 Calculus of bile duct without cholangitis or cholecystitis without obstruction (principal); R10.9 Unspecified abdominal pain; F41.9 Anxiety disorder, unspecified; E03.9 Hypothyroidism, unspecified; E11.9 Type 2 diabetes mellitus without complications; G89.29 Other chronic pain
CPT/HCPCS: 36415; 81001; 82040; 82150; 82247; 82310; 82374; 82435; 82565; 82947; 83690; 84075; 84132; 84155; 84295; 84439; 84443; 84450; 84460; 84520; 85025

== ENCOUNTER 2017-12-29 21:18 | Emergency (ER) | payer OTHER ==
[2017-11-22 13:46] VITALS: Wt 119.5 kg
--- NOTE | 2017-12-29 21:32 | ER Report ---
History and Physical Time Seen By MD: 21:32 Hx. of Stated Complaint: nausea/vomiting started about 2030 glucose almost 400 before she came in HPI/ROS CHIEF COMPLAINT: Epigastric pain, nausea with vomiting HISTORY OF PRESENT ILLNESS: This is a 42-year-old female. She has a history of cholecystectomy, still forming stones in the biliary system and recently had an ERCP with sphincterotomy. Tonight she started having some epigastric pain, sharp pain, associated with nausea and vomiting. Denies any fevers or chills. Bowels or bladder function been normal. Blood sugars have been a little high today as well. No chest pain or shortness of breath. Allergies: Coded Allergies: metformin (Verified Allergy, Intermediate, nausea, lightheadedness, 12/29/17) oxycodone (Verified Allergy, Mild, ITCHING, 12/29/17) lisinopril (Verified Adverse Reaction, Unknown, Vomit, 12/29/17) morphine (Verified Adverse Reaction, Unknown, itching , 12/29/17) Uncoded Allergies: SAGEBRUSH (Allergy, Intermediate, 01/31/15) CATS (Adverse Reaction, Mild, 01/31/15) Home Meds Active Scripts Ondansetron (ONDANSETRON ODT) 4 Mg Tab.rapdis, 4 MG PO Q6H PRN for NAUSEA/VOMITING, #20 TAB 0 Refills Prov:MAHNAZ KELLY MD 12/30/17 Insulin Glargine,Hum.rec.anlog (Basaglar Kwikpen U-100) 100 Unit/Ml (3 Ml) Insuln.pen, 55 UNITS SQ HS, #2 BOX 3 Refills add 2 units every 3 days until Blood glucose 80-130 Not to exceed 70 units per day Prov:DERREK ONEILL MD 12/17/17 Reported Medications Escitalopram Oxalate (LEXAPRO) 20 Mg Tablet, 20 MG PO HS, TAB 11/21/17 Propranolol Hcl (PROPRANOLOL HCL) 10 Mg Tablet, 20 MG PO BID 11/21/17 Magnesium Oxide (MAGNESIUM OXIDE) 250 Mg Tablet, 250 MG PO HS 11/10/17 Cholecalciferol (Vitamin D3) (VITAMIN D3) 5,000 Unit Capsule, 5000 UNIT PO HS, CAPSULE 09/17/17 Folic Acid (FOLIC ACID) 1 Mg Tablet, 400 MG PO HS, TAB 7/23/18 Methotrexate Sodium (METHOTREXATE) 2.5 Mg Tablet, 2.5 MG PO DIRECTED, #1 7.5 mg once a week 09/08/17 Amitriptyline Hcl (AMITRIPTYLINE HCL) 10 Mg Tablet, 1-2 TAB PO QHS, TAB 09/08/17 Levothyroxine Sodium (LEVOTHYROXINE SODIUM) 0.112 Mg Tab, 0.112 MG PO QDAY, TAB 09/08/17 Reviewed Nurses Notes: Yes Hx Smoking: No Smoking Status: Never Smoker Exposure to Second Hand Smoke?: No Hx Substance Use Disorder: No Hx Alcohol Use: No Constitutional Vital Sign - Last 24 Hours 12/29/17 12/29/17 12/29/17 12/29/17 21:18 21:22 21:23 21:30 Temp 98.6 Pulse ??? 99 Resp 16 B/P (MAP) 137/95 137/95 (109) 129/88 (102) Pulse Ox 97 O2 Delivery Room Air 12/29/17 12/29/17 12/29/17 12/29/17 21:33 21:48 22:00 22:03 Pulse 100 85 ??? B/P (MAP) ???/??? (4035) Pulse Ox 99 97 12/29/17 12/29/17 12/29/17 12/29/17 22:04 22:18 22:30 22:33 Pulse 90 85 B/P (MAP) 107/63 (78) 104/69 (81) Pulse Ox 96 96 12/29/17 12/30/17 12/30/17 12/30/17 22:38 00:02 00:08 00:30 Pulse 89 80 B/P (MAP) 138/69 (92) 116/74 (88) Pulse Ox 93 93 12/30/17 12/30/17 00:43 01:00 Pulse 81 B/P (MAP) 128/73 (91) Pulse Ox 96 Intake and Output0 12/29/17 12/29/17 12/30/17 15:00 23:00 07:00 Intake Total 900 ml 50 ml Balance 900 ml 50 ml Physical Exam General Appearance: The patient is alert. No acute distress. Eyes: Pupils are equal, round. No pallor, injection or icterus. ENT: Mucous membranes are moist. Respiratory: Lungs are clear to auscultation. Cardiovascular: Regular rate and rhythm. Gastrointestinal: Abdomen is soft, tender in epigastric area. Nondistended. Neurological: Alert and oriented x3. No focal neurologic deficits Skin: Warm and dry. No rashes. DIFFERENTIAL DIAGNOSIS: After history and physical exam, differential diagnosis was considered for epigastric pain including but not limited to biliary colic, cholecystitis, peptic ulcer disease, pancreatitis, and gastroenteritis. Medical Decision Making Data Points Result Diagram: 12/29/17213912/29/172139 Laboratory Hematology Test 12/29/17 21:40 12/29/17 22:47 Red Blood Count 4.36 M/uL (4.17-5.56) Mean Corpuscular Volume 89.1 fL (80.0-96.0) Mean Corpuscular Hemoglobin 31.8 pg (26.0-33.0) Mean Corpuscular Hemoglobin Concent 35.6 g/dL (32.0-36.0) Red Cell Distribution Width 13.4 % (11.5-14.5) Mean Platelet Volume 9.9 fL (7.2-11.1) Neutrophils (%) (Auto) 65.2 % (39.4-72.5) Lymphocytes (%) (Auto) 25.1 % (17.6-49.6) Monocytes (%) (Auto) 7.1 % (4.1-12.4) Eosinophils (%) (Auto) 1.5 % (0.4-6.7) Basophils (%) (Auto) 1.1 % (0.3-1.4) Nucleated RBC Relative Count (auto) 0.0 /100WBC Neutrophils # (Auto) 5.6 K/uL (2.0-7.4) Lymphocytes # (Auto) 2.2 K/uL (1.3-3.6) Monocytes # (Auto) 0.6 K/uL (0.3-1.0) Eosinophils # (Auto) 0.1 K/uL (0.0-0.5) Basophils # (Auto) 0.1 K/uL (0.0-0.1) Nucleated RBC Absolute Count (auto) 0.00 K/uL Sodium Level 136 mmol/L (137-145) Potassium Level 3.8 mmol/L (3.5-5.0) Chloride Level 103 mmol/L (98-107) Carbon Dioxide Level 24 mmol/L (22-31) Blood Urea Nitrogen 12 mg/dl (7-18) Creatinine 0.80 mg/dl (0.52-1.04) Glomerular Filtration Rate Calc > 60.0 Random Glucose 298 mg/dl (75-110) Calcium Level 9.1 mg/dl (8.4-10.2) Total Bilirubin 0.8 mg/dl (0.2-1.3) Aspartate Amino Transf (AST/SGOT) 83 U/L (0-35) Alanine Aminotransferase (ALT/SGPT) 54 U/L (0-56) Alkaline Phosphatase 147 U/L (0-126) Troponin I < 0.012 ng/ml Total Protein 7.0 g/dl (6.3-8.2) Albumin 3.9 g/dl (3.5-5.0) Amylase Level 84 U/L (0-110) Lipase 141 U/L (23-300) Acetone, Qualitative Negative Urine Color Yellow Urine Clarity Slightly-cloudy Urine pH 5.0 pH (4.8-9.5) Urine Specific [place] 1.022 Urine Protein Negative mg/dL (NEGATIVE) Urine Glucose (UA) 500 mg/dL (NEGATIVE) Urine Ketones Negative mg/dL (NEGATIVE) Urine Blood Negative (NEGATIVE) Urine Nitrite Negative (NEGATIVE) Urine Bilirubin Negative (NEGATIVE) Urine Urobilinogen 4.0 mg/dL (0.2-1.9) Urine Leukocyte Esterase Negative (NEGATIVE) Urine RBC None /HPF (0-2/HPF) Urine WBC 2 /HPF (0-5/HPF) Urine Squamous Epithelial Cells Many /LPF (</=FEW) Urine Calcium Oxalate Crystals Moderate /HPF (NONE) Urine Bacteria Negative /HPF (NONE-FEW) Urine Mucus None /HPF (NONE-FEW) Chemistry Test 12/29/17 21:40 12/29/17 22:47 White Blood Count 8.6 k/uL (4.5-11.0) Red Blood Count 4.36 M/uL (4.17-5.56) Hemoglobin 13.9 g/dL (12.0-16.0) Hematocrit 38.9 % (34.0-47.0) Mean Corpuscular Volume 89.1 fL (80.0-96.0) Mean Corpuscular Hemoglobin 31.8 pg (26.0-33.0) Mean Corpuscular Hemoglobin Concent 35.6 g/dL (32.0-36.0) Red Cell Distribution Width 13.4 % (11.5-14.5) Platelet Count 224 K/uL (150-450) Mean Platelet Volume 9.9 fL (7.2-11.1) Neutrophils (%) (Auto) 65.2 % (39.4-72.5) Lymphocytes (%) (Auto) 25.1 % (17.6-49.6) Monocytes (%) (Auto) 7.1 % (4.1-12.4) Eosinophils (%) (Auto) 1.5 % (0.4-6.7) Basophils (%) (Auto) 1.1 % (0.3-1.4) Nucleated RBC Relative Count (auto) 0.0 /100WBC Neutrophils # (Auto) 5.6 K/uL (2.0-7.4) Lymphocytes # (Auto) 2.2 K/uL (1.3-3.6) Monocytes # (Auto) 0.6 K/uL (0.3-1.0) Eosinophils # (Auto) 0.1 K/uL (0.0-0.5) Basophils # (Auto) 0.1 K/uL (0.0-0.1) Nucleated RBC Absolute Count (auto) 0.00 K/uL Glomerular Filtration Rate Calc > 60.0 Calcium Level 9.1 mg/dl (8.4-10.2) Total Bilirubin 0.8 mg/dl (0.2-1.3) Aspartate Amino Transf (AST/SGOT) 83 U/L (0-35) Alanine Aminotransferase (ALT/SGPT) 54 U/L (0-56) Alkaline Phosphatase 147 U/L (0-126) Troponin I < 0.012 ng/ml Total Protein 7.0 g/dl (6.3-8.2) Albumin 3.9 g/dl (3.5-5.0) Amylase Level 84 U/L (0-110) Lipase 141 U/L (23-300) Acetone, Qualitative Negative Urine Color Yellow Urine Clarity Slightly-cloudy Urine pH 5.0 pH (4.8-9.5) Urine Specific [place] 1.022 Urine Protein Negative mg/dL (NEGATIVE) Urine Glucose (UA) 500 mg/dL (NEGATIVE) Urine Ketones Negative mg/dL (NEGATIVE) Urine Blood Negative (NEGATIVE) Urine Nitrite Negative (NEGATIVE) Urine Bilirubin Negative (NEGATIVE) Urine Urobilinogen 4.0 mg/dL (0.2-1.9) Urine Leukocyte Esterase Negative (NEGATIVE) Urine RBC None /HPF (0-2/HPF) Urine WBC 2 /HPF (0-5/HPF) Urine Squamous Epithelial Cells Many /LPF (</=FEW) Urine Calcium Oxalate Crystals Moderate /HPF (NONE) Urine Bacteria Negative /HPF (NONE-FEW) Urine Mucus None /HPF (NONE-FEW) Toxicology Test 12/29/17 21:40 Acetone, Qualitative Negative Urinalysis Test 12/29/17 22:47 Urine Color Yellow Urine Clarity Slightly-cloudy Urine pH 5.0 pH (4.8-9.5) Urine Specific [place] 1.022 Urine Protein Negative mg/dL (NEGATIVE) Urine Glucose (UA) 500 mg/dL (NEGATIVE) Urine Ketones Negative mg/dL (NEGATIVE) Urine Blood Negative (NEGATIVE) Urine Nitrite Negative (NEGATIVE) Urine Bilirubin Negative (NEGATIVE) Urine Urobilinogen 4.0 mg/dL (0.2-1.9) Urine Leukocyte Esterase Negative (NEGATIVE) Urine RBC None /HPF (0-2/HPF) Urine WBC 2 /HPF (0-5/HPF) Urine Squamous Epithelial Cells Many /LPF (</=FEW) Urine Calcium Oxalate Crystals Moderate /HPF (NONE) Urine Bacteria Negative /HPF (NONE-FEW) Urine Mucus None /HPF (NONE-FEW) EKG/Imaging EKG Interpretation 12 lead EKG: Rhythm: normal sinus rhythm, rate 83 Soldier: normal QRS: normal ST segments: normal Imaging INDICATION: epigastric pain. DATE: 12/29/2017 10:45 PM. TECHNIQUE: ACUTE ABDOMEN SERIES 3 VIEW COMPARISON: CT November 21, 2017 FINDINGS: The lungs are clear. No free air under the diaphragm. Moderate volume of stool in the right colon. Nonobstructive bowel gas pattern. Presumed cholecystectomy clips in the right upper quadrant. IMPRESSION: Moderate volume of stool in the right colon. Nonobstructive bowel gas pattern. Report Dictated By: Yong Jama MD at 12/29/2017 10:45 PM ED Course/Re-evaluation Clinical Indication for ER IV: Hydration, IV Access ED Course Negative labs. Abdomen three-view negative. Reviewed this with the patient. Tried a GI cocktail which did improve symptoms. We will get her started on her Prevacid and have her follow up with primary care or with Dr. Love. Decision to Disposition Date: Dec 30, 2017 Decision to Disposition Time: 00:45 Depart Departure Latest Vital Signs Vital Signs Date Time Temp Pulse Resp B/P (MAP) Pulse Ox O2 Delivery O2 Flow Rate FiO2 12/30/17 01:00 128/73 (91) 12/30/17 00:43 81 96 12/29/17 21:22 98.6 16 Room Air Impression: Primary Impression: Epigastric abdominal pain Condition: Improved Disposition: HOME OR SELF-CARE Referrals: DERREK ONEILL MD (PCP) New Scripts Ondansetron (ONDANSETRON ODT) 4 Mg Tab.rapdis 4 MG PO Q6H PRN for NAUSEA/VOMITING, #20 TAB 0 Refills Prov: MAHNAZ KELLY MD 12/30/17 Patient Instructions: Epigastric Pain (ED) Additional Instructions: Start taking your Pantoprazole once a day in the morning. Take Zofran 4mg every 6 hours as needed for nausea. [place] diet. Follow-up with Dr. Oneill or with Dr. Love as needed. MAHNAZ KELLY MD Dec 29, 2017 21:32
[2017-12-29] MEDS ORDERED: NS(*) 0.9% 1000 ML BAG 1,000 ML IV ONE (21:40)
[2017-12-29] MEDS ORDERED: ONDANSETRON 4 MG/2 ML VIAL IVP ONE (21:40)
[2017-12-29 21:48] LABS: PLATELET COUNT, AUTOMATED 224 K/uL (150-450)
--- NOTE | 2017-12-29 22:50 | RADIOLOGY IMAGING REPORT ---
FACILITY: [facility] [place] PATIENT NAME: Shea Mendosa : 1975 MR: [id number] V: [id number] EXAM DATE: ORDERING PHYSICIAN: MAHNAZ KELLY TECHNOLOGIST: Location: [facility] [place] Patient: Shea Mendosa : 1975 Visit/Account:[id number] Date of Sevice: 12/29/2017 INDICATION: epigastric pain. DATE: 12/29/2017 10:45 PM. TECHNIQUE: ACUTE ABDOMEN SERIES 3 VIEW COMPARISON: CT November 21, 2017 FINDINGS: The lungs are clear. No free air under the diaphragm. Moderate volume of stool in the right colon. Nonobstructive bowel gas pattern. Presumed cholecystectomy clips in the right upper quadrant. IMPRESSION: Moderate volume of stool in the right colon. Nonobstructive bowel gas pattern. Report Dictated By: Yong Jama MD at 12/29/2017 10:45 PM Report E-Signed By: Yong Jama MD at 12/29/2017 10:46 PM WSN:[id number]
--- NOTE | 2017-12-29 22:55 | EKG ---
FACILITY: [facility] - [place] PATIENT NAME: SAMY RICARDO : [id number] MR: [id number] V: [id number] EXAM DATE: ORDERING PHYSICIAN: MAHNAZ KELLY TECHNOLOGIST: MORRO Test Reason : EPIGASTRIC PAIN Blood Pressure : / mmHG Vent. 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
[2017-12-29] MEDS ORDERED: LIDOCAINE 2% VISC SLN 15ML UDC PO ONE (23:45)
[2017-12-29] MEDS ORDERED: ATRO/SCOPOL/HYOSCY/PB 5 ML ELX PO ONE (23:45)
[2017-12-29] MEDS ORDERED: FAMOTIDINE(*) 20MG/50ML PREMIX 50 ML IVPB ONE (23:45)
[2017-12-29] MEDS ORDERED: MAG HYD/AL HYD/SIMETH 30ML UDC PO ONE (23:45)
[2017-12-30] MEDS ORDERED: ONDANSETRON 4 MG ODT TH SL ONE (00:45)
[2017-12-30] MEDS ORDERED: ONDA4TAB9 PO (00:46)
[2017-12-30 01:00] VITALS: BP 128/73
== END 2017-12-30 01:10 | disposition home or self-care (01) ==
LOC: ER 21:50
DX: R10.13 Epigastric pain (principal)
CPT/HCPCS: 74022; 81001; 82009; 82150; 83690; 84484; 85025; 93005; 96361; 96374; 96375; 99284; J2405; J3490; J7030; S0119; 82040; 82247; 82310; 82374; 82435; 82565; 82947; 84075; 84132; 84155; 84295; 84450; 84460; 84520

== ENCOUNTER 2018-01-12 22:40 | Emergency (ER) | payer OTHER ==
[2017-11-22 13:46] VITALS: Wt 119.5 kg
[~2018-01-12 22:40] MED LIST changes: +ONDA4TAB9 PO
--- NOTE | 2018-01-12 22:54 | ER Report ---
History and Physical Time Seen By MD: 22:55 Hx. of Stated Complaint: n/v started around 9pm. ate around 4pm HPI/ROS CHIEF COMPLAINT: Right flank pain, nausea, vomiting HISTORY OF PRESENT ILLNESS: 42-year-old female with a history of retained stone or common bile duct status post ERCP one month ago. Patient states whenever she eats she gets horrible abdominal pain and tumbling in her stomach. She had sudden onset of right flank pain around 5 PM with nausea and vomiting. Patient describes sharp, crampy right flank pain. REVIEW OF SYSTEMS: Respiratory: No cough, no dyspnea. Cardiovascular: No chest pain, no palpitations. Gastrointestinal: As above Musculoskeletal: No back pain. Allergies: Coded Allergies: metformin (Verified Allergy, Intermediate, nausea, lightheadedness, ) oxycodone (Verified Allergy, Mild, ITCHING, 01/12/18) lisinopril (Verified Adverse Reaction, Unknown, Vomit, 01/12/18) morphine (Verified Adverse Reaction, Unknown, itching , 01/12/18) Uncoded Allergies: SAGEBRUSH (Allergy, Intermediate, 01/31/15) CATS (Adverse Reaction, Mild, 01/31/15) Home Meds Active Scripts Hydromorphone Hcl (DILAUDID) 2 Mg Tablet, 2 MG PO Q4-6H PRN for PAIN, #12 Prov:EDMUND PRESTON DO 01/13/18 Propranolol Hcl (PROPRANOLOL HCL) 20 Mg Tablet, 1 TAB PO BID for 90 Days, #180 TAB Prov:DERREK SIDHU MD 01/12/18 Ondansetron (ONDANSETRON ODT) 4 Mg Tab.rapdis, 4 MG PO Q6H PRN for NAUSEA/VOMITING, #20 TAB 0 Refills Prov:MAHNAZ KELLY MD 12/30/17 Insulin Glargine,Hum.rec.anlog (Basaglar Kwikpen U-100) 100 Unit/Ml (3 Ml) Insuln.pen, 55 UNITS SQ HS, #2 BOX 3 Refills add 2 units every 3 days until Blood glucose 80-130 Not to exceed 70 units per day Prov:DERREK SIDHU MD 12/17/17 Reported Medications Escitalopram Oxalate (LEXAPRO) 20 Mg Tablet, 20 MG PO HS, TAB 11/21/17 Magnesium Oxide (MAGNESIUM OXIDE) 250 Mg Tablet, 250 MG PO HS 11/10/17 Cholecalciferol (Vitamin D3) (VITAMIN D3) 5,000 Unit Capsule, 5000 UNIT PO HS, CAPSULE 09/17/17 Folic Acid (FOLIC ACID) 1 Mg Tablet, 400 MG PO HS, TAB 09/08/17 Methotrexate Sodium (METHOTREXATE) 2.5 Mg Tablet, 2.5 MG PO DIRECTED, #1 7.5 mg once a week 09/08/17 Amitriptyline Hcl (AMITRIPTYLINE HCL) 10 Mg Tablet, 1-2 TAB PO QHS, TAB 09/08/17 Levothyroxine Sodium (LEVOTHYROXINE SODIUM) 0.112 Mg Tab, 0.112 MG PO QDAY, TAB 09/08/17 Discontinued Reported Medications Propranolol Hcl (PROPRANOLOL HCL) 10 Mg Tablet, 20 MG PO BID 11/21/17 Past Medical/Surgical History Past Medical History Neurologic: Reports hx of: migraine HEENT: Reports hx of: allergic rhinitis Cardiovascular: Reports hx of: hypertension Musculoskeletal: Reports hx of: fibromyalgia osteoarthritis 2 Integumentary: Reports hx of: other integumentary hx (scalp sarcoidosis) Psychiatric: Reports hx of: anxiety depression Endocrine: Reports hx of: diabetes type 2 hypothyroidism Past Surgical History Gastrointestinal: Reports hx of: cholecystectomy Gynecologic: Reports hx of: delivery (1993) hysterectomy Hx Smoking: No Smoking Status: Never Smoker Exposure to Second Hand Smoke?: No Hx Substance Use Disorder: No Hx Alcohol Use: No Constitutional Vital Sign - Last 24 Hours 01/12/18 01/12/18 01/12/18 01/12/18 22:40 22:52 22:54 22:55 Temp 97.8 Pulse ??? 53 56 Resp 20 B/P (MAP) 103/63 103/63 (76) Pulse Ox 95 94 O2 Delivery Room Air 01/12/18 01/12/18 01/12/18 01/12/18 23:10 23:25 23:30 23:31 Pulse 63 62 B/P (MAP) 88/46 (60) 94/53 (67) Pulse Ox 91 93 01/12/18 01/12/18 01/13/18 01/13/18 23:40 23:55 00:02 00:10 Pulse 64 ??? 60 B/P (MAP) 102/62 (75) Pulse Ox 95 95 01/13/18 01/13/18 01/13/18 01/13/18 00:15 00:30 00:45 01:00 Pulse 65 64 65 ??? B/P (MAP) 92/54 (67) 87/58 (68) Pulse Ox 94 95 94 94 01/13/18 01/13/18 01/13/18 01/13/18 01:15 01:24 01:30 01:45 Pulse ??? 59 63 B/P (MAP) 105/68 (80) 97/67 (77) Pulse Ox 96 96 01/13/18 01/13/18 01/13/18 01/13/18 02:00 02:09 02:14 02:28 Pulse 62 ??? B/P (MAP) 86/54 (65) 97/65 (76) 112/74 (87) Pulse Ox 95 01/13/18 01/13/18 01/13/18 01/13/18 02:29 02:30 02:44 02:51 Pulse 61 ??? B/P (MAP) 111/66 (81) 103/60 (74) Pulse Ox 97 01/13/18 01/13/18 01/13/18 01/13/18 02:59 03:00 03:29 03:30 Pulse 61 59 B/P (MAP) 99/55 (70) 97/58 (71) Pulse Ox 98 97 01/13/18 03:44 Pulse ??? Pulse Ox 88 Physical Exam General Appearance: The patient is alert, has no immediate need for airway protection and no current signs of toxicity. Vital signs stable, afebrile, moderate distress, skin pale and cool, dry Eyes: Pupils equal and round no injection. Anicteric sclera Respiratory: Chest is non tender, lungs are clear to auscultation. Cardiac: regular rate and rhythm Gastrointestinal: Abdomen is soft and non tender, no masses, bowel sounds normal. Moderate Right CVA tenderness Musculoskeletal: Neck: Neck is supple and non tender. Extremities have full range of motion and are non tender. Skin: No rashes or lesions. DIFFERENTIAL DIAGNOSIS: After history and physical exam differential diagnosis was considered for abdominal pain including but not limited to appendicitis, cholecystitis, gastritis, pancreatitis, kidney stone, and urinary tract infe ction. Medical Decision Making Data Points Result Diagram: 01/12/18229901/12/182299 Laboratory Hematology Test 01/12/18 23:00 01/13/18 02:28 Red Blood Count 4.47 M/uL (4.17-5.56) Mean Corpuscular Volume 89.2 fL (80.0-96.0) Mean Corpuscular Hemoglobin 31.7 pg (26.0-33.0) Mean Corpuscular Hemoglobin Concent 35.5 g/dL (32.0-36.0) Red Cell Distribution Width 13.5 % (11.5-14.5) Mean Platelet Volume 9.6 fL (7.2-11.1) Neutrophils (%) (Auto) 67.3 % (39.4-72.5) Lymphocytes (%) (Auto) 22.8 % (17.6-49.6) Monocytes (%) (Auto) 7.7 % (4.1-12.4) Eosinophils (%) (Auto) 1.6 % (0.4-6.7) Basophils (%) (Auto) 0.6 % (0.3-1.4) Nucleated RBC Relative Count (auto) 0.0 /100WBC Neutrophils # (Auto) 5.8 K/uL (2.0-7.4) Lymphocytes # (Auto) 2.0 K/uL (1.3-3.6) Monocytes # (Auto) 0.7 K/uL (0.3-1.0) Eosinophils # (Auto) 0.1 K/uL (0.0-0.5) Basophils # (Auto) 0.1 K/uL (0.0-0.1) Nucleated RBC Absolute Count (auto) 0.00 K/uL Sodium Level 137 mmol/L (137-145) Potassium Level 3.9 mmol/L (3.5-5.0) Chloride Level 106 mmol/L (98-107) Carbon Dioxide Level 21 mmol/L (22-31) Blood Urea Nitrogen 12 mg/dl (7-18) Creatinine 0.70 mg/dl (0.52-1.04) Glomerular Filtration Rate Calc > 60.0 Random Glucose 242 mg/dl (75-110) Calcium Level 9.1 mg/dl (8.4-10.2) Total Bilirubin 0.8 mg/dl (0.2-1.3) Aspartate Amino Transf (AST/SGOT) 152 U/L (0-35) Alanine Aminotransferase (ALT/SGPT) 91 U/L (0-56) Alkaline Phosphatase 153 U/L (0-126) Total Protein 6.6 g/dl (6.3-8.2) Albumin 3.6 g/dl (3.5-5.0) Amylase Level 113 U/L (0-110) Lipase 405 U/L (23-300) Urine Color Yellow Urine Clarity Clear Urine pH 5.0 pH (4.8-9.5) Urine Specific [place] 1.019 Urine Protein Negative mg/dL (NEGATIVE) Urine Glucose (UA) 50 mg/dL (NEGATIVE) Urine Ketones Negative mg/dL (NEGATIVE) Urine Blood Negative (NEGATIVE) Urine Nitrite Negative (NEGATIVE) Urine Bilirubin Negative (NEGATIVE) Urine Urobilinogen 4.0 mg/dL (0.2-1.9) Urine Leukocyte Esterase Negative (NEGATIVE) Urine RBC None /HPF (0-2/HPF) Urine WBC 3 /HPF (0-5/HPF) Urine Squamous Epithelial Cells Many /LPF (</=FEW) Urine Bacteria Negative /HPF (NONE-FEW) Urine Mucus Few /HPF (NONE-FEW) Chemistry Test 01/12/18 23:00 01/13/18 02:28 White Blood Count 8.6 k/uL (4.5-11.0) Red Blood Count 4.47 M/uL (4.17-5.56) Hemoglobin 14.2 g/dL (12.0-16.0) Hematocrit 39.9 % (34.0-47.0) Mean Corpuscular Volume 89.2 fL (80.0-96.0) Mean Corpuscular Hemoglobin 31.7 pg (26.0-33.0) Mean Corpuscular Hemoglobin Concent 35.5 g/dL (32.0-36.0) Red Cell Distribution Width 13.5 % (11.5-14.5) Platelet Count 288 K/uL (150-450) Mean Platelet Volume 9.6 fL (7.2-11.1) Neutrophils (%) (Auto) 67.3 % (39.4-72.5) Lymphocytes (%) (Auto) 22.8 % (17.6-49.6) Monocytes (%) (Auto) 7.7 % (4.1-12.4) Eosinophils (%) (Auto) 1.6 % (0.4-6.7) Basophils (%) (Auto) 0.6 % (0.3-1.4) Nucleated RBC Relative Count (auto) 0.0 /100WBC Neutrophils # (Auto) 5.8 K/uL (2.0-7.4) Lymphocytes # (Auto) 2.0 K/uL (1.3-3.6) Monocytes # (Auto) 0.7 K/uL (0.3-1.0) Eosinophils # (Auto) 0.1 K/uL (0.0-0.5) Basophils # (Auto) 0.1 K/uL (0.0-0.1) Nucleated RBC Absolute Count (auto) 0.00 K/uL Glomerular Filtration Rate Calc > 60.0 Calcium Level 9.1 mg/dl (8.4-10.2) Total Bilirubin 0.8 mg/dl (0.2-1.3) Aspartate Amino Transf (AST/SGOT) 152 U/L (0-35) Alanine Aminotransferase (ALT/SGPT) 91 U/L (0-56) Alkaline Phosphatase 153 U/L (0-126) Total Protein 6.6 g/dl (6.3-8.2) Albumin 3.6 g/dl (3.5-5.0) Amylase Level 113 U/L (0-110) Lipase 405 U/L (23-300) Urine Color Yellow Urine Clarity Clear Urine pH 5.0 pH (4.8-9.5) Urine Specific [place] 1.019 Urine Protein Negative mg/dL (NEGATIVE) Urine Glucose (UA) 50 mg/dL (NEGATIVE) Urine Ketones Negative mg/dL (NEGATIVE) Urine Blood Negative (NEGATIVE) Urine Nitrite Negative (NEGATIVE) Urine Bilirubin Negative (NEGATIVE) Urine Urobilinogen 4.0 mg/dL (0.2-1.9) Urine Leukocyte Esterase Negative (NEGATIVE) Urine RBC None /HPF (0-2/HPF) Urine WBC 3 /HPF (0-5/HPF) Urine Squamous Epithelial Cells Many /LPF (</=FEW) Urine Bacteria Negative /HPF (NONE-FEW) Urine Mucus Few /HPF (NONE-FEW) Urinalysis Test 01/13/18 02:28 Urine Color Yellow Urine Clarity Clear Urine pH 5.0 pH (4.8-9.5) Urine Specific [place] 1.019 Urine Protein Negative mg/dL (NEGATIVE) Urine Glucose (UA) 50 mg/dL (NEGATIVE) Urine Ketones Negative mg/dL (NEGATIVE) Urine Blood Negative (NEGATIVE) Urine Nitrite Negative (NEGATIVE) Urine Bilirubin Negative (NEGATIVE) Urine Urobilinogen 4.0 mg/dL (0.2-1.9) Urine Leukocyte Esterase Negative (NEGATIVE) Urine RBC None /HPF (0-2/HPF) Urine WBC 3 /HPF (0-5/HPF) Urine Squamous Epithelial Cells Many /LPF (</=FEW) Urine Bacteria Negative /HPF (NONE-FEW) Urine Mucus Few /HPF (NONE-FEW) EKG/Imaging Imaging Results: CT scan of the abdomen and pelvis with IV contrast was obtained. The results of the study are COMPUTED TOMOGRAPHY ABDOMEN AND PELVIS WITH INTRAVENOUS CONTRAST DATE OF EXAM: 01/13/2018 2:40 AM INDICATION: History of ERCP. No acute pancreatitis, right flank pain. COMPARISON: MRCP an CT abdomen and pelvis 11/21/2017. TECHNIQUE: Contrast enhanced abdomen and pelvis CT performed during the injection of 75 ml of Isovue 370. Sagittal and coronal reconstructions were performed. One of the following dose optimization techniques was utilized in the performance of this exam: Automated exposure control; adjustment of the mA and/or kV according to the patient's size; or use of an iterative reconstruction technique. Specific details can be referenced in the facility's radiology CT exam operational policy. FINDINGS: Lung bases: Minimal atelectasis. Liver and hepatic vasculature: No acute abnormality or suspicious lesion. Gallbladder and bile ducts: Cholecystectomy. Small volume of pneumobilia likely related to recent manipulation of the papilla. Bile ducts are otherwise unremarkable. Spleen: Mild splenomegaly. Pancreas: Nonfocal. No acute inflammation. Adrenals: Normal. Kidneys, ureters and bladder: Normal. Retroperitoneum and aorta: Normal aorta. Shotty para-aortic lymph nodes similar to prior. GI tract, mesentery and peritoneum: Nonacute. Normal appendix. Uterus and adnexa: Hysterectomy. Bones and soft tissues: No acute abnormality or suspicious lesion. IMPRESSION: Small volume of pneumobilia likely related to recent manipulation of the papilla. Otherwise nonacute. The study was read by the radiologist. I viewed the images myself on the PACS system. ED Course/Re-evaluation Clinical Indication for ER IV: Hydration, IV Access ED Course Patient was admitted to an examination room. H&P was done. The differential diagnoses was considered. On clinical examination. Patient has right flank pain, right upper quadrant pain. Patient has a peripheral IV established. She is hydrated. She is treated with Zofran analgesics in the IV. She feels much better. Her diagnostic studies return. Elevated white blood cell count. Her lipase is elevated to 400. She does have a history of an ERCP. She was transferred out here with an elevated lactate and possibly cholangitis. 4. She was sent down for ERCP approximate month ago. Patient had a CT scan performed to rule out any occult pathology related to her ERCP. She had some pneumobiliary findings, otherwise unremarkable. She is discharged home on Zofran and hydrocodone. She is advised clear liquid diet, to rest her bowels for 24-48 hours. She is advised to return for any worsening. Decision to Disposition Date: Jan 13, 2018 Decision to Disposition Time: 03:31 Depart Departure Latest Vital Signs Vital Signs Date Time Temp Pulse Resp B/P (MAP) Pulse Ox O2 Delivery O2 Flow Rate FiO2 01/13/18 03:44 ??? 88 01/13/18 03:30 97/58 (71) 01/12/18 22:52 97.8 20 Room Air Impression: Primary Impression: Right flank pain Additional Impressions: History of ERCP Pancreatitis Condition: Improved Disposition: HOME OR SELF-CARE Referrals: DERREK SIDHU MD (PCP) New Scripts Hydromorphone Hcl (DILAUDID) 2 Mg Tablet 2 MG PO Q4-6H PRN for PAIN, #12 Prov: EDMUND PRESTON DO 01/13/18 Patient Instructions: Clear Liquid Diet (ED), Pancreatitis (ED) Additional Instructions: Follow-up with your primary care doctor within 2-3 days Problem Qualifiers Additional Impressions: Pancreatitis Chronicity: acute Pancreatitis type: unspecified pancreatitis type Acute pancreatitis complication: unspecified Qualified Codes: K85.90 - Acute pancreatitis without necrosis or infection, unspecified EDMUND PRESTON DO Jan 12, 2018 22:54
[2018-01-12] MEDS ORDERED: NS(*) 0.9% 1000 ML BAG 1,000 ML IV ONE (23:03)
[2018-01-12] MEDS ORDERED: ONDANSETRON 4 MG/2 ML VIAL IVP ONE (23:05)
[2018-01-12] MEDS ORDERED: PROMETHAZINE 25 MG/ML 1 ML AMP IVP ONE (23:05)
[2018-01-12] MEDS ORDERED: HYDROMORPHONE HCL 1 MG/ML SYRINGE IVP ONE (23:05)
[2018-01-12 23:16] LABS: PLATELET COUNT, AUTOMATED 288 K/uL (150-450)
[2018-01-13] MEDS ORDERED: NS(*) 0.9% 1000 ML BAG 1,000 ML IV ONE ×2 (00:05→01:25)
[2018-01-13] MEDS ORDERED: IOPAMIDOL 76% 75 ML INFUS BTL 75 ML ONE (02:37)
--- NOTE | 2018-01-13 03:21 | RADIOLOGY IMAGING REPORT ---
FACILITY[place] [facility] [place]IENT NAME: Shea Mendosa : 1975 MR: [id number] V: [id number] EXAM DATE: ORDERING PHYSICIAN: EDMUND PRESTON TECHNOLOGIST: Location[place] [facility] [place] Patient: Shea Mendosa : 1975 Visit/Account:[id number] Date of Sevice: 01/13/2018 COMPUTED TOMOGRAPHY ABDOMEN AND PELVIS WITH INTRAVENOUS CONTRAST DATE OF EXAM: 01/13/2018 2:40 AM INDICATION: History of ERCP. No acute pancreatitis, right flank pain. COMPARISON: MRCP an CT abdomen and pelvis 11/21/2017. TECHNIQUE: Contrast enhanced abdomen and pelvis CT performed during the injection of 75 ml of Isovue 370. Sagittal and coronal reconstructions were performed. One of the following dose optimization te chniques was utilized in the performance of this exam: Automated exposure control; adjustment of the mA and/or kV according to the patient's size; or use of an iterative reconstruction technique. Spec [facility] details can be referenced in the facility's radiology CT exam operational policy. FINDINGS: Lung bases: Minimal atelectasis. Liver and hepatic vasculature: No acute abnormality or suspicious lesion. Gallbladder and bile ducts: Cholecystectomy. Small volume of pneumobilia likely related to recent m anipulation of the papilla. Bile ducts are otherwise unremarkable. Spleen: Mild splenomegaly. Pancreas: Nonfocal. No acute inflammation. Adrenals: Normal. Kidneys, ureters and bladder: Normal. Retroperitoneum and aorta: Normal aorta. Shotty para-aortic lymph nodes similar to prior. GI tract, mesentery and peritoneum: Nonacute. Normal appendix. Uterus and adnexa: Hysterectomy. Bones and soft tissues: No acute abnormality or suspicious lesion. IMPRESSION: Small volume of pneumobilia likely related to recent manipulation of the papilla. Otherw ise nonacute. Report Dictated By: Hi Zuleta MD at 01/13/2018 3:06 AM Report E-Signed By: Hi Zuleta MD at 01/13/2018 3:14 AM WSN:[id number]
[2018-01-13 03:30] VITALS: BP 97/58
[2018-01-13] MEDS ORDERED: HYDR2TAB74 PO (03:32)
[2018-01-13] MEDS ORDERED: HYDROmorphone 2 MG TAB TH 2 TAB/BOTTLE PO ONE (03:40)
== END 2018-01-13 03:45 | disposition home or self-care (01) ==
LOC: ER 23:05
DX: K85.90 Acute pancreatitis without necrosis or infection, unspecified (principal)
CPT/HCPCS: 74177; 81001; 82150; 83690; 85025; 96361; 96374; 96375; 99284; J1170; J2405; J2550; J7030; Q9967; 82040; 82247; 82310; 82374; 82435; 82565; 82947; 84075; 84132; 84155; 84295; 84450; 84460; 84520

== ENCOUNTER → 2018-01-19 | Outpatient (CLI) | payer OTHER ==
[2017-11-22 13:46] VITALS: BMI 45.1
[~2018-01-19] MED LIST changes: +HYDR2TAB74 PO
[2018-01-19 16:31] LABS: PLATELET COUNT, AUTOMATED 256 K/uL (150-450)
== END ==
LOC: LAB 16:01
PROVIDERS: ATTEND Internal Medicine
DX: K85.90 Acute pancreatitis without necrosis or infection, unspecified (principal); Z98.890 Other specified postprocedural states; E11.9 Type 2 diabetes mellitus without complications
CPT/HCPCS: 36415; 81001; 82040; 82150; 82247; 82310; 82374; 82435; 82565; 82947; 83690; 84075; 84132; 84155; 84295; 84450; 84460; 84520; 85025

== ENCOUNTER 2018-03-22 09:09 | Emergency (ER) | payer SELFPAY ==
[2017-11-22 13:46] VITALS: Wt 119.5 kg
[~2018-03-22 09:09] MED LIST changes: -LOSA25TA52 PO; +LOSA25TA57 PO
[2018-03-22] MEDS ORDERED: NS(*) 0.9% 1000 ML BAG 1,000 ML IV ONE ×3 (09:33→11:25)
--- NOTE | 2018-03-22 09:33 | ER Report ---
History and Physical Time Seen By MD: 09:31 Hx. of Stated Complaint: PT WOKE UP WITH RUQ PAIN, NAUSEA, DIARRHEA HPI/ROS CHIEF COMPLAINT: Right upper quadrant pain, nausea and diarrhea HISTORY OF PRESENT ILLNESS: Patient is a 42-year-old female who is complaining of right upper quadrant pain and biliary colic. She is a prior history of gallstones with gallbladder removal in 2009 [place] most recently had an ERCP on 12/09/2017 which removed a 5 mm stone from her bile duct also having a sphincterotomy at this time. She had been doing fairly well up until last evening when she began with her typical biliary colic pain. She denies fevers but reports some type of shaking and chills. She states the pain is about an 8 out of 10 in intensity and associated with nausea. Patient also has a history of type 2 diabetes as well as surgical history for in 1993 status post hysterectomy due to dysfunctional uterine bleeding but still has both ovaries. REVIEW OF SYSTEMS: Constitutional: No fevers Eyes: No discharge. ENT: No sore throat. Cardiovascular: No chest pain, no palpitations. Respiratory: No cough, no shortness of breath. Gastrointestinal: Upper quadrant pain, nausea vomiting and diarrhea Genitourinary: No hematuria. Musculoskeletal: No back pain. Skin: No rashes. Neurological: No headache. Allergies: Coded Allergies: metformin (Verified Allergy, Intermediate, nausea, lightheadedness, 01/12/18) oxycodone (Verified Allergy, Mild, ITCHING, 01/12/18) lisinopril (Verified Adverse Reaction, Unknown, Vomit, 01/12/18) morphine (Verified Adverse Reaction, Unknown, itching , 01/12/18) Uncoded Allergies: SAGEBRUSH (Allergy, Intermediate, 01/31/15) CATS (Adverse Reaction, Mild, 01/31/15) Home Meds Active Scripts Propranolol Hcl (PROPRANOLOL HCL) 20 Mg Tablet, 1 TAB PO BID for 90 Days, #180 TAB Prov:DERREK SIDHU MD 01/12/18 Ondansetron 4 Mg Odt (ONDANSETRON 4 MG ODT) 4 Mg Tab.rapdis, 4 MG PO Q6H PRN for NAUSEA/VOMITING, #20 TAB 0 Refills Prov:MAHNAZ KELLY MD 12/30/17 Insulin Glargine,Hum.rec.anlog (Basaglar Rejiikpen U-100) 100 Unit/Ml (3 Ml) Ins uln.pen, 55 UNITS SQ HS, #2 BOX 3 Refills add 2 units every 3 days until Blood glucose 80-130 Not to exceed 70 units per day Prov:DERREK SIDHU MD 12/17/17 Reported Medications Magnesium Oxide (MAGNESIUM OXIDE) 250 Mg Tablet, 250 MG PO HS 11/10/17 Cholecalciferol (Vitamin D3) (VITAMIN D3) 5,000 Unit Capsule, 5000 UNIT PO HS, CAPSULE 09/17/17 Folic Acid (FOLIC ACID) 1 Mg Tablet, 400 MG PO HS, TAB 09/08/17 Amitriptyline Hcl (AMITRIPTYLINE HCL) 10 Mg Tablet, 1-2 TAB PO QHS, TAB 09/08/17 Levothyroxine Sodium (LEVOTHYROXINE SODIUM) 0.112 Mg Tab, 0.112 MG PO QDAY, TAB 09/08/17 Discontinued Reported Medications Pantoprazole Sodium (PANTOPRAZOLE SODIUM) 40 Mg Tablet.dr, 40 MG PO QDAY, #30 TAB.SR 6 Refills 01/19/18 Escitalopram Oxalate (LEXAPRO) 20 Mg Tablet, 20 MG PO HS, TAB 11/21/17 Methotrexate Sodium (METHOTREXATE) 2.5 Mg Tablet, 2.5 MG PO DIRECTED, #1 7.5 mg once a week 09/08/17 Discontinued Scripts Hydromorphone Hcl (DILAUDID) 2 Mg Tablet, 2 MG PO Q4-6H PRN for PAIN, #12 Prov:EDMUND PRESTON DO 01/13/18 Past Medical/Surgical History Past medical history significant for biliary colic status post gallbladder removal but still having bile duct stone status post ERCP on 12/09/2017. History of fibromyalgia, type II diabetes. Hx Smoking: No Smoking Status: Never Smoker Exposure to Second Hand Smoke?: No Hx Substance Use Disorder: No Hx Alcohol Use: No Constitutional Vital Sign - Last 24 Hours 03/22/18 03/22/18 03/22/18 03/22/18 09:09 09:16 09:18 09:24 Temp 98.6 Pulse ??? 94 88 Resp 16 B/P (MAP) 133/92 (106) 133/92 Pulse Ox 90 94 O2 Delivery Room Air 03/22/18 03/22/18 03/22/183/19 09:30 09:39 09:54 10:00 Pulse 86 82 B/P (MAP) 133/96 (108) ???/??? (1665) Pulse Ox 93 95 03/22/18 03/22/18 03/22/18 03/22/18 10:09 10:14 10:29 10:30 Pulse 80 79 92 B/P (MAP) 126/72 (90) 116/74 (88) Pulse Ox 97 97 95 03/22/18 03/22/18 03/22/18 03/22/18 10:31 10:44 10:59 11:00 Pulse 83 81 B/P (MAP) 120/83 (95) Pulse Ox 96 93 O2 Flow Rate 1.0 03/22/18 03/22/18 03/22/18 03/22/18 11:14 11:29 11:30 12:00 Pulse 86 74 B/P (MAP) 114/80 (91) ???/??? (9425) Pulse Ox 96 96 03/22/18 03/22/18 03/22/18 03/22/18 12:05 12:20 12:30 12:35 Pulse ? B/P (MAP) ???/??? (1665) 03/22/18 03/22/18 03/22/18 03/22/18 12:50 13:00 13:05 13:35 Pulse ? 78 B/P (MAP) ???/??? (4585) Pulse Ox 97 03/22/18 03/22/18 03/22/18 13:36 13:50 14:00 Pulse 75 B/P (MAP) 113/78 (90) 92/75 (81) Pulse Ox 97 Physical Exam General Appearance: The patient is alert, has no immediate need for airway protection and no signs of toxicity. Eyes: Pupils equal and round no pallor or injection. ENT, Mouth: Mucous membranes are moist. Respiratory: There are no retractions, lungs are clear to auscultation. Cardiovascular: Regular rate and rhythm. Gastrointestinal: Right upper quadrant pain to palpation Neurological: Awake and alert Skin: Warm and dry, no rashes. Musculoskeletal: Neck is supple non tender. Extremities are nontender, nonswollen and have full range of motion. Medical Decision Making Data Points Result Diagram: 03/22/18 0923 03/22/18 0923 Laboratory Hematology Test 03/22/18 09:12 03/22/18 09:23 03/22/18 13:43 Urine Color Yellow Urine Clarity Clear Urine pH 6.0 pH (4.8-9.5) Urine Specific [place] 1.025 Urine Protein Negative mg/dL (NEGATIVE) Urine Glucose (UA) 500 mg/dL (NEGATIVE) Urine Ketones Negative mg/dL (NEGATIVE) Urine Blood Negative (NEGATIVE) Urine Nitrite Negative (NEGATIVE) Urine Bilirubin Negative (NEGATIVE) Urine Urobilinogen Negative mg/dL (0.2-1.9) Urine Leukocyte Esterase Negative (NEGATIVE) Urine RBC None /HPF (0-2/HPF) Urine WBC <1 /HPF (0-5/HPF) Urine Squamous Epithelial Cells Many /LPF (</=FEW) Urine Bacteria Negative /HPF (NONE-FEW) Urine Mucus None /HPF (NONE-FEW) Red Blood Count 4.66 M/uL (4.17-5.56) Mean Corpuscular Volume 89.8 fL (80.0-96.0) Mean Corpuscular Hemoglobin 30.5 pg (26.0-33.0) Mean Corpuscular Hemoglobin Concent 34.0 g/dL (32.0-36.0) Red Cell Distribution Width 13.3 % (11.5-14.5) Mean Platelet Volume 10.1 fL (7.2-11.1) Neutrophils (%) (Auto) 64.0 % (39.4-72.5) Lymphocytes (%) (Auto) 25.3 % (17.6-49.6) Monocytes (%) (Auto) 7.7 % (4.1-12.4) Eosinophils (%) (Auto) 1.9 % (0.4-6.7) Basophils (%) (Auto) 1.1 % (0.3-1.4) Nucleated RBC Relative Count (auto) 0.1 /100WBC Neutrophils # (Auto) 3.5 K/uL (2.0-7.4) Lymphocytes # (Auto) 1.4 K/uL (1.3-3.6) Monocytes # (Auto) 0.4 K/uL (0.3-1.0) Eosinophils # (Auto) 0.1 K/uL (0.0-0.5) Basophils # (Auto) 0.1 K/uL (0.0-0.1) Nucleated RBC Absolute Count (auto) 0.00 K/uL Sodium Level 135 mmol/L (137-145) Potassium Level 4.0 mmol/L (3.5-5.0) Chloride Level 107 mmol/L (98-107) Carbon Dioxide Level 19 mmol/L (22-31) Blood Urea Nitrogen 10 mg/dl (7-18) Creatinine 0.70 mg/dl (0.52-1.04) Glomerular Filtration Rate Calc > 60.0 Random Glucose 521 mg/dl (75-110) Calcium Level 8.7 mg/dl (8.4-10.2) Total Bilirubin 0.7 mg/dl (0.2-1.3) Aspartate Amino Transf (AST/SGOT) 38 U/L (0-35) Alanine Aminotransferase (ALT/SGPT) 34 U/L (0-56) Alkaline Phosphatase 126 U/L (0-126) Total Protein 6.8 g/dl (6.3-8.2) Albumin 3.9 g/dl (3.5-5.0) Lipase 106 U/L (23-300) Helicobacter pylori IgG Antibody Negative (NEGATIVE) Whole Blood Glucose 255 mg/DL (75-110) Chemistry Test 03/22/18 09:12 03/22/18 09:23 03/22/18 13:43 Urine Color Yellow Urine Clarity Clear Urine pH 6.0 pH (4.8-9.5) Urine Specific [place] 1.025 Urine Protein Negative mg/dL (NEGATIVE) Urine Glucose (UA) 500 mg/dL (NEGATIVE) Urine Ketones Negative mg/dL (NEGATIVE) Urine Blood Negative (NEGATIVE) Urine Nitrite Negative (NEGATIVE) Urine Bilirubin Negative (NEGATIVE) Urine Urobilinogen Negative mg/dL (0.2-1.9) Urine Leukocyte Esterase Negative (NEGATIVE) Urine RBC None /HPF (0-2/HPF) Urine WBC <1 /HPF (0-5/HPF) Urine Squamous Epithelial Cells Many /LPF (</=FEW) Urine Bacteria Negative /HPF (NONE-FEW) Urine Mucus None /HPF (NONE-FEW) White Blood Count 5.4 k/uL (4.5-11.0) Red Blood Count 4.66 M/uL (4.17-5.56) Hemoglobin 14.2 g/dL (12.0-16.0) Hematocrit 41.8 % (34.0-47.0) Mean Corpuscular Volume 89.8 fL (80.0-96.0) Mean Corpuscular Hemoglobin 30.5 pg (26.0-33.0) Mean Corpuscular Hemoglobin Concent 34.0 g/dL (32.0-36.0) Red Cell Distribution Width 13.3 % (11.5-14.5) Platelet Count 212 K/uL (150-450) Mean Platelet Volume 10.1 fL (7.2-11.1) Neutrophils (%) (Auto) 64.0 % (39.4-72.5) Lymphocytes (%) (Auto) 25.3 % (17.6-49.6) Monocytes (%) (Auto) 7.7 % (4.1-12.4) Eosinophils (%) (Auto) 1.9 % (0.4-6.7) Basophils (%) (Auto) 1.1 % (0.3-1.4) Nucleated RBC Relative Count (auto) 0.1 /100WBC Neutrophils # (Auto) 3.5 K/uL (2.0-7.4) Lymphocytes # (Auto) 1.4 K/uL (1.3-3.6) Monocytes # (Auto) 0.4 K/uL (0.3-1.0) Eosinophils # (Auto) 0.1 K/uL (0.0-0.5) Basophils # (Auto) 0.1 K/uL (0.0-0.1) Nucleated RBC Absolute Count (auto) 0.00 K/uL Glomerular Filtration Rate Calc > 60.0 Calcium Level 8.7 mg/dl (8.4-10.2) Total Bilirubin 0.7 mg/dl (0.2-1.3) Aspartate Amino Transf (AST/SGOT) 38 U/L (0-35) Alanine Aminotransferase (ALT/SGPT) 34 U/L (0-56) Alkaline Phosphatase 126 U/L (0-126) Total Protein 6.8 g/dl (6.3-8.2) Albumin 3.9 g/dl (3.5-5.0) Lipase 106 U/L (23-300) Helicobacter pylori IgG Antibody Negative (NEGATIVE) Whole Blood Glucose 255 mg/DL (75-110) Urinalysis Test 03/22/18 09:12 Urine Color Yellow Urine Clarity Clear Urine pH 6.0 pH (4.8-9.5) Urine Specific [place] 1.025 Urine Protein Negative mg/dL (NEGATIVE) Urine Glucose (UA) 500 mg/dL (NEGATIVE) Urine Ketones Negative mg/dL (NEGATIVE) Urine Blood Negative (NEGATIVE) Urine Nitrite Negative (NEGATIVE) Urine Bilirubin Negative (NEGATIVE) Urine Urobilinogen Negative mg/dL (0.2-1.9) Urine Leukocyte Esterase Negative (NEGATIVE) Urine RBC None /HPF (0-2/HPF) Urine WBC <1 /HPF (0-5/HPF) Urine Squamous Epithelial Cells Many /LPF (</=FEW) Urine Bacteria Negative /HPF (NONE-FEW) Urine Mucus None /HPF (NONE-FEW) EKG/Imaging Imaging FACILITY: [facility] PATIENT NAME: Shea Mendosa : 1975 MR: [id number] V: [id number] EXAM DATE: ORDERING PHYSICIAN: JAYDE MEZA TECHNOLOGIST: Location: [facility] - [place] Patient: Shea Mendosa : 1975 Visit/Account:[id number] Date of Sevice: 03/22/2018 MR ABDOMEN MRCP W & W/O CONTRAST COMPARISON: November 21, 2017. HISTORY: ruq pain; hx of bile duct stone . History of cholecystectomy 2009. TECHNIQUE: Pre and post contrast multiplanar MRI of the abdomen utilizing T1 weighted and fluid sensitive sequences. MRCP was performed. Diffusion-weighted imaging was performed. CONTRAST: 15 mL MultiHance intravenously MRI ABDOMEN FINDINGS: LIVER: Normal size and morphology. Diffuse hepatic steatosis noted on opposed phase images. No significant liver lesions or concerning enhancement. BILIARY: Absent gallbladder. There is no intra or extrahepatic bile duct dilatation. Common duct measures up to 6 mm which is normal in size. No evidence of choledocholithiasis or ductal stricture on MRI or MRCP images. Ductal contours are smooth. SPLEEN: Mildly enlarged at 14.4 cm AP diameter near homogeneous enhancement. PANCREAS: Benign fatty deposition. Otherwise negative. Normal-appearing pancreatic duct. ADRENALS: Negative. KIDNEYS: Negative. GI/MESENTERY: Negative. VASCULAR: Negative. LYMPH NODES: Negative. BONES: Negative. OTHER: Negative. IMPRESSION: 1. Previous cholecystectomy without bile duct dilatation, evidence of ductal stricture or evidence of choledocholithiasis. 2. Diffuse hepatic steatosis. 3. Mild stable splenomegaly. Report Dictated By: Blair De Leon at 03/22/2018 1:51 PM Report E-Signed By: Blair De Leon at 03/22/2018 2:03 PM WSN:[id number] FACILITY: [facility] PATIENT NAME: Shea Mendosa : 1975 MR: [id number] V: [id number] EXAM DATE: ORDERING PHYSICIAN: JAYDE MEZA TECHNOLOGIST: Location: [facility] [place] Patient: Shea Mendosa : 1975 Visit/Account:[id number] Date of Sevice: 03/22/2018 MR ABDOMEN MRCP W & W/O CONTRAST COMPARISON: November 21, 2017. HISTORY: ruq pain; hx of bile duct stone . History of cholecystectomy 2009. TECHNIQUE: Pre and post contrast multiplanar MRI of the abdomen utilizing T1 weighted and fluid sensitive sequences. MRCP was performed. Diffusion-weighted imaging was performed. CONTRAST: 15 mL MultiHance intravenously MRI ABDOMEN FINDINGS: LIVER: Normal size and morphology. Diffuse hepatic steatosis noted on opposed phase images. No significant liver lesions or concerning enhancement. BILIARY: Absent gallbladder. There is no intra or extrahepatic bile duct dilatation. Common duct measures up to 6 mm which is normal in size. No evidence of choledocholithiasis or ductal stricture on MRI or MRCP images. Ductal contours are smooth. SPLEEN: Mildly enlarged at 14.4 cm AP diameter near homogeneous enhancement. PANCREAS: Benign fatty deposition. Otherwise negative. Normal-appearing pancreatic duct. ADRENALS: Negative. KIDNEYS: Negative. GI/MESENTERY: Negative. VASCULAR: Negative. LYMPH NODES: Negative. BONES: Negative. OTHER: Negative. IMPRESSION: 1. Previous cholecystectomy without bile duct dilatation, evidence of ductal stricture or evidence of choledocholithiasis. 2. Diffuse hepatic steatosis. 3. Mild stable splenomegaly. Report Dictated By: Blair De Leon at 03/22/2018 1:51 PM Report E-Signed By: Blair De Leon at 03/22/2018 2:03 PM WSN:[id number] ED Course/Re-evaluation Clinical Indication for ER IV: Hydration, IV Access ED Course 03/22/2018 9:33:22 am plan at this time will be workup for biliary colic type symptoms. We'll check abdominal labs including lipase will give patient IV pain medicine Zofran and fluids and keep the patient nothing by mouth. Decision to Disposition Date: Mar 22, 2018 Decision to Disposition Time: 14:21 Depart Departure Latest Vital Signs Vital Signs Date Time Temp Pulse Resp B/P (MAP) Pulse Ox O2 Delivery O2 Flow Rate FiO2 03/22/18 14:00 92/75 (81) 03/22/18 13:50 75 97 03/22/18 10:31 1.0 03/22/18 09:18 98.6 16 Room Air Impression: Primary Impression: Right upper quadrant abdominal pain Condition: Improved Disposition: HOME OR SELF-CARE Referrals: DERREK SIDHU MD (PCP) New Scripts Diphenhydramine Hcl (BENADRYL) 25 Mg Capsule 25 MG PO Q6-8H for itching, #20 CAPSULE 0 Refills Prov: JAYDE MEZA MD 03/22/18 Ondansetron Hcl (ZOFRAN) 4 Mg Tablet 4 MG PO Q8H for Nausea, #15 TAB 0 Refills Prov: JAYDE MEZA MD 03/22/18 Patient Instructions: Biliary Colic (ED) Additional Instructions: Follow-up by calling Dr. Rai Love the surgeon who performed your ERCP and cholecystectomy, by calling his office 1st thing tomorrow morning. JAYDE MEZA MD Mar 22, 2018 09:33
[2018-03-22] MEDS ORDERED: ONDANSETRON 4 MG/2 ML VIAL IVP ONE (09:35)
[2018-03-22] MEDS ORDERED: diphenhydrAMINE 50 MG/ML VIAL IVP ONE (09:40)
[2018-03-22] MEDS ORDERED: HYDROMORPHONE HCL 1 MG/ML SYRINGE IVP ONE ×2 (09:40→12:50)
[2018-03-22 09:45] LABS: PLATELET COUNT, AUTOMATED 212 K/uL (150-450)
[2018-03-22] MEDS ORDERED: IOPAMIDOL 76% 50 ML INFUS BTL 100 ML ONE (09:49)
[2018-03-22] MEDS ORDERED: INSU HUM REG 100 U/ML(ER ONLY) 10 ML VIAL IV ONE ×2 (10:00→13:45)
--- NOTE | 2018-03-22 10:30 | RADIOLOGY IMAGING REPORT ---
[place] [facility] [place] Shea Mendosa : 1975 MR: [id number] V: [id number] EXAM DATE: ORDERING PHYSICIAN: JAYDE MEZA TECHNOLOGIST: Location: [facility] Patient: Shea Mendosa : 1975 Visit/Account:[id number] Date of Sevice: 03/22/2018 Study: CT scan of the abdomen and pelvis with intravenous contrast Indication: Right upper quadrant pain Comparison study: January 13, 2018 Contrast used: 80 mL [id number] Technique: Multiple axial images were obtained through the abdomen and pelvis following intravenous a dministration of iodinated contrast. Coronal and sagittal two-dimensional reconstructions were made f rom the original data set. One of the following dose optimization techniques was utilized in the performance of this exam: Autom ated exposure control; adjustment of the mA and/or kV according to the patient's size; or use of an i terative reconstruction technique. Specific details can be referenced in the facility's radiology C T exam operational policy. Findings: Lung bases: Unremarkable Liver: There is a small amount of intrahepatic biliary duct gas present. This was also present on the previous study. The liver is otherwise unremarkable. Spleen: Unremarkable Gallbladder: Surgically removed Stomach: Unremarkable Small bowel:The small bowel is unremarkable in appearance. Large bowel: The large bowel is unremarkable in appearance. Pancreas: Unremarkable Adrenal glands: Unremarkable Kidneys: Unremarkable Retroperitoneum: Unremarkable Pelvis: Unremarkable Bony structures: Unremarkable IMPRESSION: Patient status post resection of the gallbladder. There is no evidence of acute abdominal or pelvic abnormality. The etiology of the patient's right upper quadrant pain is not visualized on the current exam. Report Dictated By: Jaiden Aggarwal at 03/22/2018 10:20 AM Report E-Signed By: Jaiden Aggarwal at 03/22/2018 10:27 AM WSN:[id number]
[2018-03-22] MEDS ORDERED: GADOBENATE 529MG/1ML 15ML VIAL IVP ONE (11:57)
[2018-03-22] MEDS ORDERED: NS(*) 0.9% 50 ML BAG 50 ML ONE (11:58)
--- NOTE | 2018-03-22 12:07 | RADIOLOGY IMAGING REPORT ---
FACILITY: [facility] - [place] PATIENT NAME: Shea Mendosa : 1975 MR: [id number] V: [id number] EXAM DATE: ORDERING PHYSICIAN: JAYDE MEZA TECHNOLOGIST: Location: [facility] Patient: Shea Mendosa : 1975 Visit/Account:[id number] Date of Sevice: 03/22/2018 Study: XR ORBITS Indication: MRI screening Comparison study: None Findings: A single view of the orbits demonstrates no evidence of metallic foreign body. No significant bony abnormality is identified. IMPRESSION: No evidence of metallic foreign body overlying the orbits. Report Dictated By: Jaiden Aggarwal at 03/22/2018 12:02 PM Report E-Signed By: Jaiden Aggarwal at 03/22/2018 12:03 PM WSN:[id number]
[2018-03-22 14:00] VITALS: BP 92/75
--- NOTE | 2018-03-22 14:07 | RADIOLOGY IMAGING REPORT ---
FACILITY: [facility] [place] PATIENT NAME: Shea Mendosa : 1975 MR: [id number] V: [id number] EXAM DATE: ORDERING PHYSICIAN: JAYDE MEZA TECHNOLOGIST: Location: [facility] Patient: Shea Mendosa : 1975 Visit/Account:[id number] Date of Sevice: 03/22/2018 MR ABDOMEN MRCP W & W/O CONTRAST COMPARISON: November 21, 2017. HISTORY: ruq pain; hx of bile duct stone . History of cholecystectomy 2009. TECHNIQUE: Pre and post contrast multiplanar MRI of the abdomen utilizing T1 weighted and fluid sens itive sequences. MRCP was performed. Diffusion-weighted imaging was performed. CONTRAST: 15 mL MultiHance intravenously MRI ABDOMEN FINDINGS: LIVER: Normal size and morphology. Diffuse hepatic steatosis noted on opposed phase images. No signi ficant liver lesions or concerning enhancement. BILIARY: Absent gallbladder. There is no intra or extrahepatic bile duct dila tation. Common duct measures up to 6 mm which is normal in size. No evidence of choledocholithiasis o r ductal stricture on MRI or MRCP images. Ductal contours are smooth. SPLEEN: Mildly enlarged at 14.4 cm AP diameter near homogeneous enhancement. PANCREAS: Benign fatty deposition. Otherwise negative. Normal-appearing pancreatic duct. ADRENALS: Negative. KIDNEYS: Negative. GI/MESENTERY: Negative. VASCULAR: Negative. LYMPH NODES: Negative. BONES: Negative. OTHER: Negative. IMPRESSION: 1. Previous cholecystectomy without bile duct dilatation, evidence of ductal stricture or evidence o f choledocholithiasis. 2. Diffuse hepatic steatosis. 3. Mild stable splenomegaly. Report Dictated By: Blair De Leon at 03/22/2018 1:51 PM Report E-Signed By: Blair De Leon at 03/22/2018 2:03 PM WSN:[id number]
[2018-03-22] MEDS ORDERED: DIPH-740 PO (14:24)
[2018-03-22] MEDS ORDERED: LOR5/325 PO (14:24)
[2018-03-22] MEDS ORDERED: ONDA4TAB97 PO (14:24)
== END 2018-03-22 14:36 | disposition home or self-care (01) ==
LOC: ER 09:19
DX: R10.11 Right upper quadrant pain (principal); Z90.49 Acquired absence of other specified parts of digestive tract; E11.9 Type 2 diabetes mellitus without complications
CPT/HCPCS: 36416; 70030; 74177; 74183; 81001; 82948; 83690; 85025; 86677; 96361; 96374; 96375; 96376; 99284; A9577; J1170; J1200; J2405; J7030; J7050; Q9967; 82040; 82247; 82310; 82374; 82435; 82565; 82947; 84075; 84132; 84155; 84295; 84450; 84460; 84520; J1815

== ENCOUNTER 2018-06-22 16:44 | Emergency (ER) | payer SELFPAY ==
[2017-11-22 13:46] VITALS: Wt 120.2 kg
[~2018-06-22 16:44] MED LIST changes: +DIPH-740 PO; +LOR5/325 PO
--- NOTE | 2018-06-22 17:57 | ER Report ---
History and Physical Time Seen By MD: 17:57 Hx. of Stated Complaint: PATIENT STATES THAT SHE STARTED HAVING AN MIGRAINE THAT STARTED TODAY; UNSURE OF TIME; STATES THAT SHE HAS SENSITIVITY TO LIGHT, SMELL, NAUSEA, HEADACHE IS IN THE BACK OF THE HEAD; ALSO STATES SHE HAS BEEN SMELLING CIGARETTE SMOKE SINCE FRI. HPI/ROS CHIEF COMPLAINT: Migraine headache HISTORY OF PRESENT ILLNESS: 42-year-old female with a long history of migraines presents with a migraine that started earlier today. She notes nausea but no vomiting. She notes photophobia. Patient took her sumatriptan without relief. Patient's has also tried Tylenol and ibuprofen. She denies fever, chills or stiff neck. Patient states his headache is typical for her. REVIEW OF SYSTEMS: Respiratory: No cough, no dyspnea. Cardiovascular: No chest pain, no palpitations. Gastrointestinal: No vomiting, no abdominal pain. Musculoskeletal: No back pain. Allergies: Coded Allergies: metformin (Verified Allergy, Intermediate, nausea, lightheadedness, 01/12/18) oxycodone (Verified Allergy, Mild, ITCHING, 01/12/18) lisinopril (Verified Adverse Reaction, Unknown, Vomit, 01/12/18) morphine (Verified Adverse Reaction, Unknown, itching , 01/12/18) Uncoded Allergies: SAGEBRUSH (Allergy, Intermediate, 01/31/15) CATS (Adverse Reaction, Mild, 01/31/15) Home Meds Active Scripts Escitalopram Oxalate (ESCITALOPRAM OXALATE) 20 Mg Tablet, 20 MG PO QDAY, #90 TAB 1 Refill Prov:DERREK SIDHU MD 03/26/18 Diphenhydramine Hcl (BENADRYL) 25 Mg Capsule, 25 MG PO Q6-8H for itching, #20 CAPSULE 0 Refills Prov:JAYDE MEZA MD 03/22/18 Hydrocodone Bit/Acetaminophen (HYDROCODON-ACETAMINOPHEN 5-325) 1 Each Tablet, 1 EACH PO Q4-6H PRN for PAIN, #12 TAB 0 Refills TAKE ONE TABLET BY MOUTH EVERY 4-6 HOURS NEEDED FOR PAIN Prov:JAYDE MEZA MD 03/22/18 Ondansetron Hcl (ZOFRAN) 4 Mg Tablet, 4 MG PO Q8H for Nausea, #15 TAB 0 Refills Prov:JAYDE MEZA MD 03/22/18 Propranolol Hcl (PROPRANOLOL HCL) 20 Mg Tablet, 1 TAB PO BID for 90 Days, #180 TAB Prov:DERREK SIDHU MD 01/12/18 Ondansetron 4 Mg Odt (ONDANSETRON 4 MG ODT) 4 Mg Tab.rapdis, 4 MG PO Q6H PRN for NAUSEA/VOMITING, #20 TAB 0 Refills Prov:MAHNAZ KELLY MD 12/30/17 Insulin Glargine,Hum.rec.anlog (Basaglar Kwikpen U-100) 100 Unit/Ml (3 Ml) Insuln.pen, 55 UNITS SQ HS, #2 BOX 3 Refills add 2 units every 3 days until Blood glucose 80-130 Not to exceed 70 units per day Prov:DERREK SIDHU MD 12/17/17 Reported Medications Magnesium Oxide (MAGNESIUM OXIDE) 250 Mg Tablet, 250 MG PO HS 11/10/17 Cholecalciferol (Vitamin D3) (VITAMIN D3) 5,000 Unit Capsule, 5000 UNIT PO HS, CAPSULE 09/17/17 Folic Acid (FOLIC ACID) 1 Mg Tablet, 400 MG PO HS, TAB 09/08/17 Amitriptyline Hcl (AMITRIPTYLINE HCL) 10 Mg Tablet, 1-2 TAB PO QHS, TAB 09/08/17 Levothyroxine Sodium (LEVOTHYROXINE SODIUM) 0.112 Mg Tab, 0.112 MG PO QDAY, TAB 09/08/17 Past Medical/Surgical History Past Medical History Neurologic: Reports hx of: migraine HEENT: Reports hx of: allergic rhinitis Cardiovascular: Reports hx of: hypertension Musculoskeletal: Reports hx of: fibromyalgia osteoarthritis Integumentary: Reports hx of: other integumentary hx (scalp sarcoidosis) Psychiatric: Reports hx of: anxiety depression Endocrine: Reports hx of: diabetes type 2 hypothyroidism Past Surgical History Gastrointestinal: Reports hx of: cholecystectomy Gynecologic: Reports hx of: delivery (1993) hysterectomy Reviewed Nurses Notes: Yes Old Medical Records Reviewed: Yes Hx Smoking: No Smoking Status: Never Smoker Exposure to Second Hand Smoke?: No Hx Substance Use Disorder: No Hx Alcohol Use: No Constitutional Vital Sign - Last 24 Hours 06/22/18 06/22/18 06/22/18 06/22/18 17:02 17:58 17:59 18:00 Temp 97.7 Pulse 92 90 Resp 17 B/P (MAP) 122/108 128/95 (106) 138/90 (106) Pulse Ox 96 95 O2 Delivery Room Air 06/22/18 06/22/18 06/22/18 06/22/18 18:14 18:29 18:30 18:35 Pulse 86 85 85 B/P (MAP) 121/84 (96) Pulse Ox 92 92 94 06/22/18 06/22/18 06/22/18 06/22/18 18:50 19:00 19:05 19:20 Pulse 84 90 83 B/P (MAP) 129/87 (101) Pulse Ox 92 95 94 06/22/18 06/22/18 06/22/18 06/22/18 19:30 19:35 19:50 20:00 Pulse 78 76 B/P (MAP) 127/82 (97) 105/67 (80) Pulse Ox 91 91 06/22/18 06/22/18 06/22/18 20:05 20:20 20:30 Pulse 81 77 B/P (MAP) 111/72 (85) Pulse Ox 91 91 Intake and Output 06/22/18 06/22/18 06/23/18 15:00 23:00 07:00 Intake Total 1000 ml Balance 1000 ml Physical Exam General Appearance: The patient is alert, has no immediate need for airway protection and no current signs of toxicity.. Vital signs stable, afebrile, mild distress HEENT: Pupils equal and round no injection. PERRLA, EOMI,+ photophobia, oropharynx without redness or exudate, TMs normal Respiratory: Chest is non tender, lungs are clear to auscultation. Cardiac: regular rate and rhythm Gastrointestinal: Abdomen is soft and non tender, no masses, bowel sounds normal. Musculoskeletal: Neck: Neck is supple and non tender. Extremities have full range of motion and are non tender. Skin: No rashes or lesions. 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 Medical Decision Making ED Course/Re-evaluation Clinical Indication for ER IV: Hydration, IV Access ED Course Patient's admitted to an examination room. H&P is done. The differential diagnoses was considered. Patient has a nonfocal neurologic examination. Patient's treated with IV fluid hydration, Benadryl, Zofran, Toradol and Decadron 10 mg IV. Patient's headache is nearly gone. Her symptoms have re solved. Patient will like to be discharged home. Decision to Disposition Date: June 22, 2018 Decision to Disposition Time: 20:29 Depart Departure Latest Vital Signs Vital Signs Date Time Temp Pulse Resp B/P (MAP) Pulse Ox O2 Delivery O2 Flow Rate FiO2 06/22/18 20:30 111/72 (85) 06/22/18 20:20 77 91 06/22/18 17:02 97.7 17 Room Air Impression: Primary Impression: Migraine headache Condition: Improved Disposition: HOME OR SELF-CARE Referrals: DERREK SIDHU MD (PCP) Patient Instructions: Migraine Headache (ED) Additional Instructions: Follow-up with primary care within 1 week if unimproved Problem Qualifiers Primary Impression: Migraine headache Migraine type: unspecified Status migrainosus presence: with status migrainosus Intractability: not intractable Qualified Codes: G43.901 - Migraine, unspecified, not intractable, with status migrainosus EDMUND PRESTON DO June 22, 2018 17:57
[2018-06-22] MEDS ORDERED: diphenhydrAMINE 50 MG/ML VIAL IVP ONE (18:05)
[2018-06-22] MEDS ORDERED: KETOROLAC 30 MG/ML VIAL IVP ONE (18:05)
[2018-06-22] MEDS ORDERED: ONDANSETRON 4 MG/2 ML VIAL IVP ONE (18:05)
[2018-06-22] MEDS ORDERED: DEXAMETHASONE SOD PHOS 10MG/ML IVP ONE (18:05)
[2018-06-22] MEDS ORDERED: NS(*) 0.9% 1000 ML BAG 1,000 ML IV ONE (19:15)
[2018-06-22 20:30] VITALS: BP 111/72
== END 2018-06-22 20:36 | disposition home or self-care (01) ==
LOC: ER 18:05
DX: G43.901 Migraine, unspecified, not intractable, with status migrainosus (principal)
CPT/HCPCS: 96361; 96374; 96375; 99284; J1100; J1200; J1885; J2405; J7030

== ENCOUNTER 2018-07-20 23:15 | Emergency (ER) | payer SELFPAY ==
[2017-11-22 13:46] VITALS: Wt 120.2 kg
--- NOTE | 2018-07-20 23:17 | ER Report ---
History and Physical Time Seen By MD: 23:17 HPI/ROS CHIEF COMPLAINT: Right upper quadrant pain HISTORY OF PRESENT ILLNESS: 42-year-old female with a history of cholangitis in stone formation after her cholecystectomy. Patient now notes discomfort in her right upper quadrant radiating to her back. She had a fried eggs sandwich for dinner. Patient notes some nausea and vomiting. She denies diarrhea. Patient is approximately 6-8 months out from an ERCP with stone removal. REVIEW OF SYSTEMS: Respiratory: No cough, no dyspnea. Cardiovascular: No chest pain, no palpitations. Gastrointestinal: As above Musculoskeletal: As above Allergies: Coded Allergies: metformin (Verified Allergy, Intermediate, nausea, lightheadedness, 07/21/18) oxycodone (Verified Allergy, Mild, ITCHING, 07/21/18) lisinopril (Verified Adverse Reaction, Unknown, Vomit, 07/21/18) morphine (Verified Adverse Reaction, Unknown, itching , 07/21/18) Uncoded Allergies: SAGEBRUSH (Allergy, Intermediate, 01/31/15) CATS (Adverse Reaction, Mild, 01/31/15) Home Meds Active Scripts Promethazine Hcl (PROMETHAZINE HCL) 25 Mg Tablet, 25 MG PO Q4H PRN for NAUSEA/VOMITING, #14 TAB Prov:EDMUND PRESTON DO 07/21/18 Hydrocodone Bit/Acetaminophen (HYDROCODON-ACETAMINOPHEN 5-325) 1 Each Tablet, 1 EACH PO Q4-6H PRN for PAIN, #12 TAKE ONE TABLET BY MOUTH EVERY 4-6 HOURS NEEDED FOR PAIN Prov:EDMUND PRESTON DO 07/21/18 Amoxicillin/Pot Clav 875-125 Mg Tab (AUGMENTIN 875-125 TABLET) 1 Each Tablet, 1 TAB PO BID for infection, #14 TAB TAKE ONE TABLET BY MOUTH EVERY 12 HOURS Prov:EDMUND PRESTON DO 07/21/18 Escitalopram Oxalate (ESCITALOPRAM OXALATE) 20 Mg Tablet, 20 MG PO QDAY, #90 TAB 1 Refill Prov:DERREK SIDHU MD 03/26/18 Diphenhydramine Hcl (BENADRYL) 25 Mg Capsule, 25 MG PO Q6-8H for itching, #20 CAPSULE 0 Refills Prov:JAYDE MEZA MD 03/22/18 Hydrocodone Bit/Acetaminophen (HYDROCODON-ACETAMINOPHEN 5-325) 1 Each Tablet, 1 EACH PO Q4-6H PRN for PAIN, #12 TAB 0 Refills TAKE ONE TABLET BY MOUTH EVERY 4-6 HOURS NEEDED FOR PAIN Prov:JAYDE MEZA MD 03/22/18 Ondansetron Hcl (ZOFRAN) 4 Mg Tablet, 4 MG PO Q8H for Nausea, #15 TAB 0 Refills Prov:JAYDE MEZA MD 03/22/18 Propranolol Hcl (PROPRANOLOL HCL) 20 Mg Tablet, 1 TAB PO BID for 90 Days, #180 TAB Prov:DERREK SIDHU MD 01/12/18 Ondansetron 4 Mg Odt (ONDANSETRON 4 MG ODT) 4 Mg Tab.rapdis, 4 MG PO Q6H PRN for NAUSEA/VOMITING, #20 TAB 0 Refills Prov:MAHNAZ KELLY MD 12/30/17 Insulin Glargine,Hum.rec.anlog (Basaglar Kwikpen U-100) 100 Unit/Ml (3 Ml) Insuln.pen, 55 UNITS SQ HS, #2 BOX 3 Refills add 2 units every 3 days until Blood glucose 80-130 Not to exceed 70 units per day Prov:DERREK SIDHU MD 12/17/17 Reported Medications Insulin Glargine,Hum.rec.anlog (Basaglar Kwikpen U-100) 100 Unit/Ml (3 Ml) Insuln.pen, 76 07/20/18 Methotrexate Sodium (METHOTREXATE) 2.5 Mg Tablet, 2.5 MG PO Q12H 07/20/18 Citalopram Hydrobromide (CITALOPRAM HBR) 40 Mg Tablet, 40 MG PO QDAY, #5 TAB 07/20/18 Celecoxib (CELEBREX) 200 Mg Capsule, 200 MG PO BID, CAPSULE 07/20/18 Magnesium Oxide (MAGNESIUM OXIDE) 250 Mg Tablet, 250 MG PO HS 11/10/17 Cholecalciferol (Vitamin D3) (VITAMIN D3) 5,000 Unit Capsule, 5000 UNIT PO HS, CAPSULE 09/17/17 Folic Acid (FOLIC ACID) 1 Mg Tablet, 400 MG PO HS, TAB 09/08/17 Amitriptyline Hcl (AMITRIPTYLINE HCL) 10 Mg Tablet, 1-2 TAB PO QHS, TAB 09/08/17 Levothyroxine Sodium (LEVOTHYROXINE SODIUM) 0.112 Mg Tab, 0.112 MG PO QDAY, TAB 09/08/17 Reviewed Nurses Notes: Yes Old Medical Records Reviewed: Yes Hx Smoking: No Smoking Status: Never Smoker Exposure to Second Hand Smoke?: No Hx Substance Use Disorder: No Hx Alcohol Use: No Constitutional Vital Sign - Last 24 Hours 07/20/18 07/20/18 07/20/18 07/20/18 23:15 23:26 23:26 23:30 Temp 98.9 Pulse ??? 79 Resp 17 B/P (MAP) 121/76 121/76 (91) 102/69 (80) Pulse Ox 94 O2 Delivery Room Air 07/20/18 07/21/18 07/21/18 07/21/18 23:45 00:00 00:15 00:30 Pulse 77 78 B/P (MAP) 94/60 (71) 95/61 (72) Pulse Ox 94 90 07/21/18 07/21/18 07/21/18 07/21/18 00:45 01:00 01:00 01:15 Pulse 77 75 B/P (MAP) 101/61 (74) 101/61 (74) Pulse Ox 93 92 91 07/21/18 01:20 Pulse 76 Pulse Ox 97 Physical Exam General Appearance: The patient is alert, has no immediate need for airway protection and no current signs of toxicity. Vital signs stable, afebrile, pulse ox normal Eyes: Pupils equal and round no injection. Respiratory: Chest is non tender, lungs are clear to auscultation. Cardiac: regular rate and rhythm Gastrointestinal: Abdomen is soft, mild right upper quadrant tenderness, no rebound or guarding, no masses, bowel sounds normal. No CVA tenderness Musculoskeletal: Neck: Neck is supple and non tender. No lymphadenopathy Extremities have full range of motion and are non tender. Skin: No rashes or lesions. DIFFERENTIAL DIAGNOSIS: After history and physical exam differential diagnosis was considered for abdominal pain including but not limited to appendicitis, cholecystitis, gastritis and urinary tract infection. Additionally,flank pain including but not limited to musculoskeletal causes, kidney stone, pyelonephritis, shingles, and intra-abdominal causes such as diverticulitis and appendicitis. Medical Decision Making Data Points Result Diagram: 07/20/18 7102 07/20/18 6002 Laboratory Hematology Test 07/20/18 23:52 07/21/18 00:38 Red Blood Count 4.34 M/uL (4.17-5.56) Mean Corpuscular Volume 89.5 fL (80.0-96.0) Mean Corpuscular Hemoglobin 30.4 pg (26.0-33.0) Mean Corpuscular Hemoglobin Concent 34.0 g/dL (32.0-36.0) Red Cell Distribution Width 14.5 % (11.5-14.5) Mean Platelet Volume 9.2 fL (7.2-11.1) Neutrophils (%) (Auto) 71.2 % (39.4-72.5) Lymphocytes (%) (Auto) 19.5 % (17.6-49.6) Monocytes (%) (Auto) 7.2 % (4.1-12.4) Eosinophils (%) (Auto) 1.6 % (0.4-6.7) Basophils (%) (Auto) 0.5 % (0.3-1.4) Nucleated RBC Relative Count (auto) 0.1 /100WBC Neutrophils # (Auto) 7.5 K/uL (2.0-7.4) Lymphocytes # (Auto) 2.0 K/uL (1.3-3.6) Monocytes # (Auto) 0.8 K/uL (0.3-1.0) Eosinophils # (Auto) 0.2 K/uL (0.0-0.5) Basophils # (Auto) 0.1 K/uL (0.0-0.1) Nucleated RBC Absolute Count (auto) 0.01 K/uL Sodium Level 135 mmol/L (137-145) Potassium Level 4.3 mmol/L (3.5-5.0) Chloride Level 101 mmol/L (98-107) Carbon Dioxide Level 25 mmol/L (22-31) Blood Urea Nitrogen 12 mg/dl (7-18) Creatinine 0.90 mg/dl (0.52-1.04) Glomerular Filtration Rate Calc > 60.0 Random Glucose 330 mg/dl (75-110) Lactate 2.5 mmol/L (0.7-2.1) Calcium Level 9.3 mg/dl (8.4-10.2) Total Bilirubin 0.7 mg/dl (0.2-1.3) Aspartate Amino Transf (AST/SGOT) 81 U/L (0-35) Alanine Aminotransferase (ALT/SGPT) 51 U/L (0-56) Alkaline Phosphatase 124 U/L (0-126) Total Protein 6.3 g/dl (6.3-8.2) Albumin 3.7 g/dl (3.5-5.0) Amylase Level 53 U/L (0-110) Lipase 130 U/L (23-300) Urine Color Yellow Urine Clarity Cloudy Urine pH 5.0 pH (4.8-9.5) Urine Specific [place] 1.026 Urine Protein 30 mg/dL (NEGATIVE) Urine Glucose (UA) 500 mg/dL (NEGATIVE) Urine Ketones Negative mg/dL (NEGATIVE) Urine Blood Negative (NEGATIVE) Urine Nitrite Negative (NEGATIVE) Urine Bilirubin Negative (NEGATIVE) Urine Urobilinogen 0.2 mg/dL (0.2-1.9) Urine Leukocyte Esterase Negative (NEGATIVE) Urine RBC 2 /HPF (0-2/HPF) Urine WBC 2 /HPF (0-5/HPF) Urine Squamous Epithelial Cells Many /LPF (</=FEW) Urine Calcium Oxalate Crystals Few /HPF (NONE) Urine Bacteria Few /HPF (NONE-FEW) Urine Hyaline Casts Few /LPF (NONE-FEW) Urine Mucus Few /HPF (NONE-FEW) Chemistry Test 07/20/18 23:52 07/21/18 00:38 White Blood Count 10.5 k/uL (4.5-11.0) Red Blood Count 4.34 M/uL (4.17-5.56) Hemoglobin 13.2 g/dL (12.0-16.0) Hematocrit 38.9 % (34.0-47.0) Mean Corpuscular Volume 89.5 fL (80.0-96.0) Mean Corpuscular Hemoglobin 30.4 pg (26.0-33.0) Mean Corpuscular Hemoglobin Concent 34.0 g/dL (32.0-36.0) Red Cell Distribution Width 14.5 % (11.5-14.5) Platelet Count 254 K/uL (150-450) Mean Platelet Volume 9.2 fL (7.2-11.1) Neutrophils (%) (Auto) 71.2 % (39.4-72.5) Lymphocytes (%) (Auto) 19.5 % (17.6-49.6) Monocytes (%) (Auto) 7.2 % (4.1-12.4) Eosinophils (%) (Auto) 1.6 % (0.4-6.7) Basophils (%) (Auto) 0.5 % (0.3-1.4) Nucleated RBC Relative Count (auto) 0.1 /100WBC Neutrophils # (Auto) 7.5 K/uL (2.0-7.4) Lymphocytes # (Auto) 2.0 K/uL (1.3-3.6) Monocytes # (Auto) 0.8 K/uL (0.3-1.0) Eosinophils # (Auto) 0.2 K/uL (0.0-0.5) Basophils # (Auto) 0.1 K/uL (0.0-0.1) Nucleated RBC Absolute Count (auto) 0.01 K/uL Glomerular Filtration Rate Calc > 60.0 Lactate 2.5 mmol/L (0.7-2.1) Calcium Level 9.3 mg/dl (8.4-10.2) Total Bilirubin 0.7 mg/dl (0.2-1.3) Aspartate Amino Transf (AST/SGOT) 81 U/L (0-35) Alanine Aminotransferase (ALT/SGPT) 51 U/L (0-56) Alkaline Phosphatase 124 U/L (0-126) Total Protein 6.3 g/dl (6.3-8.2) Albumin 3.7 g/dl (3.5-5.0) Amylase Level 53 U/L (0-110) Lipase 130 U/L (23-300) Urine Color Yellow Urine Clarity Cloudy Urine pH 5.0 pH (4.8-9.5) Urine Specific [place] 1.026 Urine Protein 30 mg/dL (NEGATIVE) Urine Glucose (UA) 500 mg/dL (NEGATIVE) Urine Ketones Negative mg/dL (NEGATIVE) Urine Blood Negative (NEGATIVE) Urine Nitrite Negative (NEGATIVE) Urine Bilirubin Negative (NEGATIVE) Urine Urobilinogen 0.2 mg/dL (0.2-1.9) Urine Leukocyte Esterase Negative (NEGATIVE) Urine RBC 2 /HPF (0-2/HPF) Urine WBC 2 /HPF (0-5/HPF) Urine Squamous Epithelial Cells Many /LPF (</=FEW) Urine Calcium Oxalate Crystals Few /HPF (NONE) Urine Bacteria Few /HPF (NONE-FEW) Urine Hyaline Casts Few /LPF (NONE-FEW) Urine Mucus Few /HPF (NONE-FEW) Urinalysis Test 07/21/18 00:38 Urine Color Yellow Urine Clarity Cloudy Urine pH 5.0 pH (4.8-9.5) Urine Specific [place] 1.026 Urine Protein 30 mg/dL (NEGATIVE) Urine Glucose (UA) 500 mg/dL (NEGATIVE) Urine Ketones Negative mg/dL (NEGATIVE) Urine Blood Negative (NEGATIVE) Urine Nitrite Negative (NEGATIVE) Urine Bilirubin Negative (NEGATIVE) Urine Urobilinogen 0.2 mg/dL (0.2-1.9) Urine Leukocyte Esterase Negative (NEGATIVE) Urine RBC 2 /HPF (0-2/HPF) Urine WBC 2 /HPF (0-5/HPF) Urine Squamous Epithelial Cells Many /LPF (</=FEW) Urine Calcium Oxalate Crystals Few /HPF (NONE) Urine Bacteria Few /HPF (NONE-FEW) Urine Hyaline Casts Few /LPF (NONE-FEW) Urine Mucus Few /HPF (NONE-FEW) ED Course/Re-evaluation Clinical Indication for ER IV: Hydration, IV Access ED Course Patient was admitted to an examination room. H&P was done. The differential diagnoses was considered. A peripheral IV was established. Diagnostic studies were sent off. Patient was treated for her symptoms. Diagnostic studies returned unremarkable. Her urinalysis is unremarkable. Patient has a history of cholangitis. Patient be covered with Augmentin for occult infection, pending return of cultures. Her lactate was unremarkable. Her white count was normal, but there was a left shift. She feels like she has cholangitis again. I suspect she is having spasm of the sphincter OD. Which is giving her symptoms and were back. Her urinalysis was unremarkable. Patient's advised to follow-up with the surgeon that did her ERCP Dr. Love for further evaluation and treatment. Patient's given a limited supply of C[place]illos for temporary pain relief. Decision to Disposition Date: Jul 21, 2018 Decision to Disposition Time: 01:22 Depart Departure Latest Vital Signs Vital Signs Date Time Temp Pulse Resp B/P (MAP) Pulse Ox O2 Delivery O2 Flow Rate FiO2 07/21/18 01:20 76 97 07/21/18 01:00 101/61 (74) 07/20/18 23:26 98.9 17 Room Air Impression: Primary Impression: Right upper quadrant abdominal pain Additional Impression: Right flank pain Condition: Improved Disposition: HOME OR SELF-CARE Referrals: DERREK SIDHU MD (PCP) New Scripts Promethazine Hcl (PROMETHAZINE HCL) 25 Mg Tablet 25 MG PO Q4H PRN for NAUSEA/VOMITING, #14 TAB Prov: EDMUND PRESTON DO 07/21/18 Hydrocodone Bit/Acetaminophen (HYDROCODON-ACETAMINOPHEN 5-325) 1 Each Tablet 1 EACH PO Q4-6H PRN for PAIN, #12 TAKE ONE TABLET BY MOUTH EVERY 4-6 HOURS NEEDED FOR PAIN Prov: EDMUND PRESTON DO 07/21/18 Amoxicillin/Pot Clav 875-125 Mg Tab (AUGMENTIN 875-125 TABLET) 1 Each Tablet 1 TAB PO BID for infection, #14 TAB TAKE ONE TABLET BY MOUTH EVERY 12 HOURS Prov: EDMUND PRESTON DO 07/21/18 Patient Instructions: Abdominal Pain (ED) Additional Instructions: Follow clear liquid diet for 24-48 hours and advance to [place] diet Follow-up with Dr. Love Problem Qualifiers EDMUND PRESTON DO Jul 20, 2018 23:17
[2018-07-20] MEDS ORDERED: NS(*) 0.9% 1000 ML BAG 1,000 ML IV ONE (23:25)
[2018-07-20] MEDS ORDERED: ONDANSETRON 4 MG/2 ML VIAL IVP ONE (23:25)
[2018-07-20] MEDS ORDERED: HYDROMORPHONE HCL 1 MG/ML SYRINGE IVP ONE (23:25)
[2018-07-20] MEDS ORDERED: INSU100I10 (23:40)
[2018-07-20] MEDS ORDERED: METH2.5T43 PO (23:40)
[2018-07-20] MEDS ORDERED: CITA-141 PO (23:40)
[2018-07-20] MEDS ORDERED: CELE-1 PO (23:40)
[2018-07-21 00:11] LABS: PLATELET COUNT, AUTOMATED 254 K/uL (150-450)
[2018-07-21 01:00] VITALS: BP 101/61
[2018-07-21] MEDS ORDERED: ONDANSETRON 4 MG ODT TH SL ONE (01:20)
[2018-07-21] MEDS ORDERED: AMOX/CLAV 875 MG TAB PO ONE (01:20)
[2018-07-21] MEDS ORDERED: ACET/HYDROC 5/325MG TH ER ONLY 2 TAB/BOTTLE PO ONE (01:20)
[2018-07-21] MEDS ORDERED: AMOX-559 PO (01:24)
[2018-07-21] MEDS ORDERED: LOR5/325 PO (01:24)
[2018-07-21] MEDS ORDERED: PROM-110 PO (01:24)
== END 2018-07-21 01:42 | disposition home or self-care (01) ==
LOC: ER 23:55
DX: R10.11 Right upper quadrant pain (principal)
CPT/HCPCS: 81001; 82150; 83605; 83690; 85025; 96361; 96374; 99283; J2405; J7030; S0119; 82040; 82247; 82310; 82374; 82435; 82565; 82947; 84075; 84132; 84155; 84295; 84450; 84460; 84520

== ENCOUNTER → 2018-08-14 | Outpatient (REF) ==
[2017-11-22 13:46] VITALS: BMI 45.1
[~2018-08-14] MED LIST changes: +AMOX-559 PO; +INSU100I10; +PROM-110 PO
--- NOTE | 2018-08-14 16:16 | RADIOLOGY IMAGING REPORT ---
[place] [facility] [place] NAME: Shea Mendosa : 1975 MR: [id number] V: [id number] EXAM DATE: ORDERING PHYSICIAN: DEBBIE ZHOU TECHNOLOGIST: Location: [facility] [place] Patient: Shea Mendosa : 1975 Visit/Account:[id number] Date of Sevice: 08/14/2018 HIP LEFT Indication: Hip pain. Comparison: 09/17/2017 Findings: Frontal view of the pelvis and a frog-leg lateral view of the left hip are obtained. No fracture or dislocation is seen. The hip joints appear appropriately aligned. There is mild hip allen int osteoarthritis. Benign-appearing bone island is again seen within the left femoral neck. Pubic sy mphysis and sacroiliac joints are appropriately aligned. Surgical clips overlie the pelvis. Overall, no significant interval change. IMPRESSION: 1. No acute osseous or joint centered abnormality of the pelvis/left hip. 2. Mild hip joint osteoarthritis. Report Dictated By: Joshua Ribeiro at 08/14/2018 4:04 PM Report E-Signed By: Joshua Ribeiro at 08/14/2018 4:08 PM WSN:[id number]
== END ==
LOC: RAD 15:32
PROVIDERS: ATTEND Nurse Practitioner
DX: M16.12 Unilateral primary osteoarthritis, left hip (principal)

== ENCOUNTER 2018-09-30 18:33 | Emergency (ER) | payer SELFPAY ==
[2017-11-22 13:46] VITALS: Wt 124.7 kg
[~2018-09-30 18:33] MED LIST changes: -INSU100I10; +INSU100I10 SUBQ
--- NOTE | 2018-09-30 18:47 | ER Report ---
History and Physical Time Seen By MD: 18:43 Hx. of Stated Complaint: patient reports that she doesn't want to live anymore HPI/ROS CHIEF COMPLAINT: suicidal ideation HISTORY OF PRESENT ILLNESS: This is a 42 year old female. She is feeling like she does not want to live. She had a plan to take all of her medications. She has a past episode of the same with overdose in remote past. Her fiance told her he did not want to be with her anymore and broke off their relationship. She also has chronic pain with worsening joint pain, her logistics supply officer increased her Methotrexate. She take naproxen for pain which can upset her stomach. Lost her job recently as well. Allergies: Coded Allergies: metformin (Verified Allergy, Intermediate, nausea, lightheadedness, 07/21/18) oxycodone (Verified Allergy, Mild, ITCHING, 07/21/18) lisinopril (Verified Adverse Reaction, Unknown, Vomit, 07/21/18) morphine (Verified Adverse Reaction, Unknown, itching , 07/21/18) Uncoded Allergies: SAGEBRUSH (Allergy, Intermediate, 01/31/15) CATS (Adverse Reaction, Mild, 01/31/15) Home Meds Active Scripts Ondansetron Hcl (ZOFRAN) 4 Mg Tablet, 4 MG PO Q8H for Nausea, #15 TAB 0 Refills Prov:JAYDE MEZA MD 03/22/18 Propranolol Hcl (PROPRANOLOL HCL) 20 Mg Tablet, 1 TAB PO BID for 90 Days, #180 TAB Prov:DERREK SIDHU MD 01/12/18 Insulin Glargine,Hum.rec.anlog (Basaglar Kwikpen U-100) 100 Unit/Ml (3 Ml) Insuln.pen, 55 UNITS SQ HS, #2 BOX 3 Refills add 2 units every 3 days until Blood glucose 80-130 Not to exceed 70 units per day Prov:DERREK SIDHU MD 12/17/17 Reported Medications Insulin Glargine,Hum.rec.anlog (Basaglar Kwikpen U-100) 100 Unit/Ml (3 Ml) Insuln.pen, 76 07/20/18 Methotrexate Sodium (METHOTREXATE) 2.5 Mg Tablet, 2.5 MG PO Q12H 07/20/18 Citalopram Hydrobromide (CITALOPRAM HBR) 40 Mg Tablet, 40 MG PO QDAY, #5 TAB 07/20/18 Magnesium Oxide (MAGNESIUM OXIDE) 250 Mg Tablet, 250 MG PO HS 11/10/17 Cholecalciferol (Vitamin D3) (VITAMIN D3) 5,000 Unit Capsule, 5000 UNIT PO HS, CAPSULE 09/17/17 Folic Acid (FOLIC ACID) 1 Mg Tablet, 400 MG PO HS, TAB 09/08/17 Amitriptyline Hcl (AMITRIPTYLINE HCL) 10 Mg Tablet, 1-2 TAB PO QHS, TAB 09/08/17 Levothyroxine Sodium (LEVOTHYROXINE SODIUM) 0.112 Mg Tab, 0.112 MG PO QDAY, TAB 09/08/17 Discontinued Reported Medications Celecoxib (CELEBREX) 200 Mg Capsule, 200 MG PO BID, CAPSULE 07/20/18 Discontinued Scripts Promethazine Hcl (PROMETHAZINE HCL) 25 Mg Tablet, 25 MG PO Q4H PRN for NAUSEA/VOMITING, #14 TAB Prov:EDMUND PRESTON DO 07/21/18 Hydrocodone Bit/Acetaminophen (HYDROCODON-ACETAMINOPHEN 5-325) 1 Each Tablet, 1 EACH PO Q4-6H PRN for PAIN, #12 TAKE ONE TABLET BY MOUTH EVERY 4-6 HOURS NEEDED FOR PAIN Prov:EDMUND PRESTON DO 07/21/18 Amoxicillin/Pot Clav 875-125 Mg Tab (AUGMENTIN 875-125 TABLET) 1 Each Tablet, 1 TAB PO BID for infection, #14 TAB TAKE ONE TABLET BY MOUTH EVERY 12 HOURS Prov:EDMUND PRESTON DO 07/21/18 Escitalopram Oxalate (ESCITALOPRAM OXALATE) 20 Mg Tablet, 20 MG PO QDAY, #90 TAB 1 Refill Prov:DERREK SIDHU MD 03/26/18 Diphenhydramine Hcl (BENADRYL) 25 Mg Capsule, 25 MG PO Q6-8H for itching, #20 CAPSULE 0 Refills Prov:JAYDE MEZA MD 03/22/18 Hydrocodone Bit/Acetaminophen (HYDROCODON-ACETAMINOPHEN 5-325) 1 Each Tablet, 1 EACH PO Q4-6H PRN for PAIN, #12 TAB 0 Refills TAKE ONE TABLET BY MOUTH EVERY 4-6 HOURS NEEDED FOR PAIN Prov:JAYDE MEZA MD 03/22/18 Ondansetron 4 Mg Odt (ONDANSETRON 4 MG ODT) 4 Mg Tab.rapdis, 4 MG PO Q6H PRN for NAUSEA/VOMITING, #20 TAB 0 Refills Prov:MAHNAZ KELLY MD 12/30/17 Reviewed Nurses Notes: Yes Hx Smoking: No Smoking Status: Never Smoker Exposure to Second Hand Smoke?: No Hx Substance Use Disorder: No Hx Alcohol Use: No Constitutional Vital Sign - Last 24 Hours 09/30/18 09/30/18 09/30/18 09/30/18 18:36 18:48 19:00 19:03 Pulse 110 104 103 Resp 24 B/P (MAP) 135/92 157/95 (115) Pulse Ox 92 90 92 O2 Delivery Room Air 09/30/18 09/30/18 09/30/18 09/30/18 19:30 20:00 20:30 21:00 Pulse 103 100 108 99 B/P (MAP) 121/88 (99) 133/90 (104) 133/82 (99) 120/78 (92) Pulse Ox 90 92 92 87 Physical Exam General Appearance: Alert, crying and very sad. Eyes: Pupils equal and round, mild scleral injection. ENT: Normal oral mucosa. Moist mucous membranes. Neck: Neck is supple and non tender. Respiratory: Chest is non tender, lungs are clear to auscultation. Cardiac: regular rate and rhythm, normal peripheral perfusion. Gastrointestinal: Abdomen is soft and non tender, bowel sounds normal. Musculoskeletal: Extremities have full range of motion. Skin: No rashes or lesions. DIFFERENTIAL DIAGNOSIS: After history and physical exam differential diagnosis was considered for suicidal ideation. Medical Decision Making Data Points Result Diagram: 09/30/18184809/30/189 Laboratory Hematology Test 09/30/18 18:49 White Blood Count 10.0 k/uL (4.5-11.0) Red Blood Count 4.72 M/uL (4.17-5.56) Hemoglobin 15.0 g/dL (12.0-16.0) Hematocrit 43.1 % (34.0-47.0) Mean Corpuscular Volume 91.4 fL (80.0-96.0) Mean Corpuscular Hemoglobin 31.9 pg (26.0-33.0) Mean Corpuscular Hemoglobin Concent 34.9 g/dL (32.0-36.0) Red Cell Distribution Width 14.6 % (11.5-14.5) H Platelet Count 267 K/uL (150-450) Mean Platelet Volume 9.6 fL (7.2-11.1) Neutrophils (%) (Auto) 74.4 % (39.4-72.5) H Lymphocytes (%) (Auto) 15.8 % (17.6-49.6) L Monocytes (%) (Auto) 6.4 % (4.1-12.4) Eosinophils (%) (Auto) 1.6 % (0.4-6.7) Basophils (%) (Auto) 1.8 % (0.3-1.4) H Nucleated RBC Relative Count (auto) 0.4 /100WBC Neutrophils # (Auto) 7.4 K/uL (2.0-7.4) Lymphocytes # (Auto) 1.6 K/uL (1.3-3.6) Monocytes # (Auto) 0.6 K/uL (0.3-1.0) Eosinophils # (Auto) 0.2 K/uL (0.0-0.5) Basophils # (Auto) 0.2 K/uL (0.0-0.1) H Nucleated RBC Absolute Count (auto) 0.04 K/uL Chemistry Test 09/30/18 18:49 09/30/18 18:50 09/30/18 21:27 Sodium Level 135 mmol/L (137-145) Potassium Level 4.2 mmol/L (3.5-5.0) Chloride Level 100 mmol/L (98-107) Carbon Dioxide Level 24 mmol/L (22-31) Blood Urea Nitrogen 12 mg/dl (7-18) Creatinine 0.80 mg/dl (0.52-1.04) Glomerular Filtration Rate Calc > 60.0 Random Glucose 344 mg/dl (75-110) Calcium Level 9.6 mg/dl (8.4-10.2) Magnesium Level 1.8 mg/dl (1.7-2.2) Total Bilirubin 0.7 mg/dl (0.2-1.3) Aspartate Amino Transf (AST/SGOT) 33 U/L (0-35) Alanine Aminotransferase (ALT/SGPT) 48 U/L (0-56) Alkaline Phosphatase 135 U/L (0-126) Troponin I < 0.012 ng/ml Total Protein 7.6 g/dl (6.3-8.2) Albumin 4.3 g/dl (3.5-5.0) Hemoglobin A1c 6.2 % (4.6-6.0) Whole Blood Glucose 292 mg/DL (75-110) Toxicology Test 09/30/18 18:49 Salicylates Level < 10 mg/L Salicylate Last Dose Date unk Urine Opiates Screen Negative Acetaminophen Level < 10 ug/ml Urine Barbiturates Screen Negative Ur Tricyclic Antidepressants Screen Positive Urine Phencyclidine Screen Negative Urine Amphetamines Screen Negative Urine Benzodiazepines Screen Negative Urine Cocaine Screen Negative Urine Cannabinoids Screen Negative Serum Alcohol < 10 mg/dl Urinalysis Test 09/30/18 18:49 Urine Color Yellow Urine Clarity Clear Urine pH 5.0 pH (4.8-9.5) Urine Specific [place] 1.022 Urine Protein Negative mg/dL (NEGATIVE) Urine Glucose (UA) 500 mg/dL (NEGATIVE) Urine Ketones Negative mg/dL (NEGATIVE) Urine Blood Negative (NEGATIVE) Urine Nitrite Negative (NEGATIVE) Urine Bilirubin Negative (NEGATIVE) Urine Urobilinogen Negative mg/dL (0.2-1.9) Urine Leukocyte Esterase Negative (NEGATIVE) Urine RBC <1 /HPF (0-2/HPF) Urine WBC 1 /HPF (0-5/HPF) Urine Squamous Epithelial Cells Moderate /LPF (</=FEW) Urine Bacteria Negative /HPF (NONE-FEW) Urine Mucus None /HPF (NONE-FEW) EKG/Imaging EKG Interpretation 12 lead EKG: Rhythm: normal sinus rhythm [place]: normal QRS: normal ST segments: Nonspecific flattening, no signs of ischemia ED Course/Re-evaluation Clinical Indication for ER IV: IV Access ED Course Labs obtained, unremarkable other than her blood glucose being elevated with her diabetes. Spoke with Dr Mccain, accepted to [facility]. I did add a troponin and EKG given her history and these were negative. Also added a hemoglobin A1c at the request of Dr. Mccain. Decision to Disposition Date: Sep 30, 2018 Decision to Disposition Time: 20:52 Depart Departure Latest Vital Signs Vital Signs Date Time Temp Pulse Resp B/P (MAP) Pulse Ox O2 Delivery O2 Flow Rate FiO2 09/30/18 21:00 99 120/78 (92) 87 09/30/18 18:36 24 Room Air Impression: Primary Impression: Suicidal ideation Condition: Condition Unchanged Disposition: [facility]FER TO [facility] Referrals: DEBBIE ZHOU (PCP) MAHNAZ KELLY MD Sep 30, 2018 18:47
[2018-09-30 19:10] LABS: PLATELET COUNT, AUTOMATED 267 K/uL (150-450)
[2018-09-30 21:00] VITALS: BP 120/78
--- NOTE | 2018-09-30 21:57 | EKG ---
FACILITY: [facility] [place] PATIENT NAME: SAMY RICARDO : [id number] MR: [id number] V: [id number] EXAM DATE: ORDERING PHYSICIAN: MAHNAZ KLELY TECHNOLOGIST: ZHEN Khan Reason : diabetes Blood Pressure : / mmHG Vent. Rate : 099 BPM Atrial Rate : 099 BPM P-R Int : 170 ms QRS Dur : 076 ms QT Int : 340 ms P-R-T Axes : 024 041 026 degrees QTc Int : 436 ms Sinus rhythm Poor R wave progression through anterior leads Nonspecific ST findings Abnormal ECG When compared with ECG of 29-DEC-2017 21:46, No significant change was found Confirmed by RONNA DE LA CRUZ ([id number]) on 10/01/2018 5:36:16 AM Referred By: Confirmed By:RONNA DE LA CRUZ
[2018-10-01] MEDS ORDERED: CITA-145 PO (09:40)
[2018-10-01] MEDS ORDERED: AMIT-108 PO (09:40)
[2018-10-01] MEDS ORDERED: LEV125 PO (09:40)
[2018-10-01] MEDS ORDERED: ATOR20TA22 PO (09:41)
[2018-10-01] MEDS ORDERED: METH2.5T43 PO (09:43)
== END 2018-09-30 21:58 ==
LOC: ER 18:37
DX: R45.851 Suicidal ideations (principal); E11.9 Type 2 diabetes mellitus without complications; R94.31 Abnormal electrocardiogram [ECG] [EKG]
CPT/HCPCS: 36415; 36416; 80305; 80320; 80329; 81001; 82040; 82247; 82310; 82374; 82435; 82565; 82947; 82948; 83036; 83735; 84075; 84132; 84155; 84295; 84443; 84450; 84460; 84484; 84520; 85025; 93005; 99284

== ENCOUNTER 2018-09-30 21:05 | Inpatient (IN) | payer SELFPAY ==
[2017-11-22 13:46] VITALS: Ht 162.6 cm; Wt 124.7 kg
[~2018-09-30] VITALS: Ht 162.6 cm; Wt 124.7 kg
[2018-09-30] MEDS ORDERED: MAG HYD/AL HYD/SIMETH 30ML UDC PO PRN (22:30)
[2018-09-30] MEDS ORDERED: DIAZEPAM 10 MG TAB PO ONE (22:40)
[2018-09-30] MEDS ORDERED: AMITRIPTYLINE HCL 25 MG TAB ONE (22:45)
[2018-09-30] MEDS: INSULIN HUM LISPRO 100 UN/ML 3 ML VIAL SUBQ PRN (22:48)
[2018-09-30] MEDS: AMITRIPTYLINE HCL 25 MG TAB PO SCH (22:48)
[2018-10-01 05:16] VITALS: BP 96/67
[2018-10-01] MEDS: LEVOTHYROXINE SOD 0.125 MG TAB PO SCH (07:58)
[2018-10-01] MEDS: INSULIN HUM LISPRO 100 UN/ML 3 ML VIAL SUBQ PRN ×3 (07:58→17:04)
[2018-10-01] MEDS: MULTIVITAMINS TAB PO SCH (08:24)
[2018-10-01] MEDS ORDERED: LEVOTHYROXINE SOD 0.125 MG TAB PO ONE (09:00)
[2018-10-01] MEDS ORDERED: CITA-145 PO (09:40)
[2018-10-01] MEDS ORDERED: LEV125 PO (09:40)
[2018-10-01] MEDS ORDERED: AMIT-108 PO (09:40)
[2018-10-01] MEDS ORDERED: ATOR20TA22 PO (09:41)
[2018-10-01] MEDS ORDERED: METH2.5T43 PO (09:43)
[2018-10-01 10:27] VITALS: BP 143/92
[2018-10-01] MEDS ORDERED: NAPROXEN 500 MG TAB PO PRN (14:25)
[2018-10-01] MEDS ORDERED: ONDANSETRON 4 MG TAB PO PRN (15:15)
[2018-10-01] MEDS: ATORVASTATIN 10 MG TAB PO SCH (15:42)
[2018-10-01] MEDS: CITALOPRAM HYDROBROM 20 MG TAB PO SCH (15:42)
[2018-10-01] MEDS: FOLIC ACID 1 MG TAB PO SCH (15:42)
[2018-10-01] MEDS: CHOLECALCIFEROL 1000 UNIT TAB PO SCH (15:43)
[2018-10-01] MEDS: IBUPROFEN 600 MG TAB PO PRN (19:02)
[2018-10-01] MEDS: MAGNESIUM OXIDE 400 MG TAB PO SCH (19:02)
[2018-10-01] MEDS: AMITRIPTYLINE HCL 25 MG TAB PO SCH (20:43)
[2018-10-01] MEDS: PROPRANOLOL HCL 20 MG TAB PO SCH (20:43)
[2018-10-01] MEDS: INSULIN GLARGINE 100 U/ML 3 ML PEN SUBQ SCH (20:43)
[2018-10-01 22:32] VITALS: BP 115/90
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
[2018-10-02] MEDS: LEVOTHYROXINE SOD 0.125 MG TAB PO SCH (06:00)
[2018-10-02 06:14] VITALS: BP 112/80
[2018-10-02] MEDS: INSULIN HUM LISPRO 100 UN/ML 3 ML VIAL SUBQ PRN ×3 (08:18→16:46)
[2018-10-02] MEDS: ATORVASTATIN 10 MG TAB PO SCH (08:53)
[2018-10-02] MEDS: CITALOPRAM HYDROBROM 20 MG TAB PO SCH (08:53)
[2018-10-02] MEDS: PROPRANOLOL HCL 20 MG TAB PO SCH ×2 (08:53→20:41)
[2018-10-02] MEDS: MULTIVITAMINS TAB PO SCH (08:53)
[2018-10-02] MEDS: FOLIC ACID 1 MG TAB PO SCH (08:54)
[2018-10-02] MEDS: CHOLECALCIFEROL 1000 UNIT TAB PO SCH (08:54)
[2018-10-02] MEDS: MAGNESIUM OXIDE 400 MG TAB PO SCH (08:54)
[2018-10-02] MEDS ORDERED: METHOTREXATE 2.5 MG TAB PO SCH (09:00)
--- NOTE | 2018-10-02 10:17 | BHS Progress Note ---
[facility] - Subjective Progress Notes Subjective Pt seen in treatment team meeting with staff present. We tried to contact her "jun" but he was at work. She reports improved mood today, says being here and having therapy is helping. C/O poor sleep last night, says it's hard to sleep in the hospital. Denies SI today. We talked about importance of getting into a regular therapy situation, she would like to get into [facility]. Tolerating meds well. Will focus on mindfulness education today. She will try to get in touch with "jun" and see if he can come for a treatment team meeting. Suicidal Ideation: Resolving Homicidal Ideation: None [facility] - Objective Physical Exam Vital Signs Vital Signs 10/02/18 06:14 Temp 98.3 Pulse 91 Resp 15 B/P (MAP) 112/80 (91) Pulse Ox 93 O2 Delivery Room Air Muscle Strength and Tone: WNL Gait and Station: Steady [facility] Medications Reviewed: Side Effects, Benefits of Medication, Risks Allergies Reviewed: Yes Mental Status Exam General Appearance: Casual, Good Eye Contact, Cooperative, Polite, Good Interaction Speech: Clear, Spontaneous, Normal Rate, Normal Volume, Delayed Mood: Dysthmic/Depressed Affect: Calm, Sad Thought Process: Organized, Logical, Goal Directed Thought Content: No Suicidal Ideation, No Homicidal Ideation, No Delusions, No Auditory Halllucinations, No Visual Hallucinations, No Thought Broadcasting, No Ideas of Reference, No Obsessions, No Compulsions, No Other Sensorium: Clear Cognition: Alert & Oriented-Person, Alert & Oriented-Place, Alert & Oriented- Time, Brfgv-[id number]-[id number] Memory: Immediate, Recent, Remote Intelligence: Average Insight Judgment: Fair [facility] Assessment and Plan Feqp-[id number] Encounter Date: Oct 02, 2018 Kdhp-zy-Xduz Encounter Time: 09:00 [facility] Plan: Admit to Unit, Necessary Precautions, Individual/Group Therapy, Admin/Titrate Meds, Educate Patient Tobacco Medications: Started Multpiple Antipsychotics Used: No Problems: (1) Anxiety and depression Status: Chronic YOUSIF POSADA MD Oct 02, 2018 10:16
[2018-10-02 12:25] VITALS: BP 128/80
[2018-10-02] MEDS: AMITRIPTYLINE HCL 25 MG TAB PO SCH (20:41)
[2018-10-02] MEDS: INSULIN GLARGINE 100 U/ML 3 ML PEN SUBQ SCH (20:42)
[2018-10-02 21:18] VITALS: BP 121/80
[2018-10-02] MEDS: IBUPROFEN 600 MG TAB PO PRN (23:45)
[2018-10-03 04:06] VITALS: BP 120/82
[2018-10-03] MEDS: LEVOTHYROXINE SOD 0.125 MG TAB PO SCH (05:30)
[2018-10-03] MEDS: IBUPROFEN 600 MG TAB PO PRN (08:19)
[2018-10-03] MEDS: INSULIN HUM LISPRO 100 UN/ML 3 ML VIAL SUBQ PRN ×3 (08:20→17:00)
[2018-10-03] MEDS: CITALOPRAM HYDROBROM 20 MG TAB PO SCH (09:07)
[2018-10-03] MEDS: FOLIC ACID 1 MG TAB PO SCH (09:07)
[2018-10-03] MEDS: MULTIVITAMINS TAB PO SCH (09:07)
[2018-10-03] MEDS: ATORVASTATIN 10 MG TAB PO SCH (09:08)
[2018-10-03] MEDS: MAGNESIUM OXIDE 400 MG TAB PO SCH (09:08)
[2018-10-03] MEDS: CHOLECALCIFEROL 1000 UNIT TAB PO SCH (09:08)
[2018-10-03] MEDS: PROPRANOLOL HCL 20 MG TAB PO SCH ×2 (09:08→20:43)
[2018-10-03 12:25] VITALS: BP 112/64
--- NOTE | 2018-10-03 14:07 | BHS Progress Note ---
[facility] - Subjective Progress Notes Subjective Pt seen in conference room with staff. Pt says she is feeling "better today compared to yesterday (when her fiancee broke up with her during a phone call)." Today she rates her depression as a 5/10, and she denies suicidal ideation. She did not sleep well last night and recognizes that the recent stressors are likely contributing to insomnia. She says "I am resiliant, I have been through a lot in the past, I will get through this." She was tearful at times but also did a good job of starting to problem-solve, talking about possibility of moving back to [place] where she has family. She siad the [facility] Loss group yesterday was helpful, and she has been participating in groups and individual therapies actively. We set a tentative discharge date for Friday, provided she stays free of SI and responds well to treatment, with some concrete safe discharge plans in place. Suicidal Ideation: Resolving Homicidal Ideation: None [facility] - Objective Physical Exam Vital Signs Vital Signs 10/03/18 04:06 Temp 97.8 Pulse 87 Resp 15 B/P (MAP) 120/82 (95) Pulse Ox 90 O2 Delivery Room Air Muscle Strength and Tone: WNL Gait and Station: Steady [facility] Medications Reviewed: Side Effects, Benefits of Medication, Risks Allergies Reviewed: Yes Mental Status Exam General Appearance: Casual, Good Eye Contact, Cooperative, Polite, Good Interaction Speech: Clear, Spontaneous, Normal Rate, Normal Volume, Delayed Mood: Dysthmic/Depressed Affect: Calm, Sad Thought Process: Organized, Logical, Goal Directed Thought Content: No Suicidal Ideation, No Homicidal Ideation, No Delusions, No Auditory Halllucinations, No Visual Hallucinations, No Thought Broadcasting, No Ideas of Reference, No Obsessions, No Compulsions, No Other Sensorium: Clear Cognition: Alert & Oriented-Person, Alert & Oriented-Place, Alert & Oriented- Time, Ktmdy-[id number]-[id number] Memory: Immediate, Recent, Remote Intelligence: Average Insight Judgment: Fair S Assessment and Plan Bsmc-[id number] Encounter Date: Oct 03, 2018 Eepc-[id number]-[id number] Encounter Time: 10:00 [facility] Plan: Admit to Unit, Necessary Precautions, Individual/Group Therapy, Admin/Titrate Meds, Educate Patient Tobacco Medications: Started Multpiple Antipsychotics Used: No Problems: (1) Adjustment disorder with mixed anxiety and depressed mood (2) Persistent depressive disorder YOUSIF POSADA MD Oct 03, 2018 14:07
[2018-10-03] MEDS: AMITRIPTYLINE HCL 25 MG TAB PO SCH (20:44)
[2018-10-03] MEDS: INSULIN GLARGINE 100 U/ML 3 ML PEN SUBQ SCH (20:44)
[2018-10-03 22:27] VITALS: BP 129/82
[2018-10-04 05:23] VITALS: BP 97/52
[2018-10-04] MEDS: LEVOTHYROXINE SOD 0.125 MG TAB PO SCH (06:00)
[2018-10-04] MEDS: MULTIVITAMINS TAB PO SCH (08:15)
[2018-10-04] MEDS: CITALOPRAM HYDROBROM 20 MG TAB PO SCH (08:15)
[2018-10-04] MEDS: FOLIC ACID 1 MG TAB PO SCH (08:15)
[2018-10-04] MEDS: ATORVASTATIN 10 MG TAB PO SCH (08:15)
[2018-10-04] MEDS: MAGNESIUM OXIDE 400 MG TAB PO SCH (08:15)
[2018-10-04] MEDS: IBUPROFEN 600 MG TAB PO PRN ×2 (08:15→21:44)
[2018-10-04] MEDS: PROPRANOLOL HCL 20 MG TAB PO SCH ×2 (08:15→21:25)
[2018-10-04] MEDS: CHOLECALCIFEROL 1000 UNIT TAB PO SCH (08:16)
[2018-10-04] MEDS: INSULIN HUM LISPRO 100 UN/ML 3 ML VIAL SUBQ PRN ×2 (11:59→16:56)
--- NOTE | 2018-10-04 14:02 | BHS Progress Note ---
S - Subjective Progress Notes Subjective Pt seen in conference room with team. Pt doing better today, less depressed, pretty realistic about the break-up, making plans to go back to [place] to live with family there-- she spoke with her mother who was supportive. We talked about importance of follow-up, she recognizes need for ongoing therapy so that she doesn't get to crisis point again when stressors intensify. Tolerating meds well without side effects. We will have treatment team tomorrow with her mother on speaker phone to solidify discharge plans, and tentative DC in am if she remains free of SI. Suicidal Ideation: None Homicidal Ideation: None S - Objective Physical Exam Vital Signs Vital Signs 10/04/18 05:23 Temp 98.1 Pulse 75 Resp 15 B/P (MAP) 97/52 (67) Pulse Ox 94 O2 Delivery Room Air Muscle Strength and Tone: WNL Gait and Station: Steady [facility] Medications Reviewed: Side Effects, Benefits of Medication, Risks Allergies Reviewed: Yes Mental Status Exam General Appearance: Casual, Good Eye Contact, Cooperative, Polite, Good Interaction Speech: Clear, Spontaneous, Normal Rate, Normal Volume, Delayed Mood: Dysthmic/Depressed, Euthymic (improving mood though still sad) Affect: Calm, Sad Thought Process: Organized, Logical, Goal Directed Thought Content: No Suicidal Ideation, No Homicidal Ideation, No Delusions, No Auditory Halllucinations, No Visual Hallucinations, No Thought Broadcasting, No Ideas of Reference, No Obsessions, No Compulsions, No Other Sensorium: Clear Cognition: Alert & Oriented-Person, Alert & Oriented-Place, Alert & Oriented- Time, Fazvp-Sfqqxbhv-Krcolxmek Memory: Immediate, Recent, Remote Intelligence: Average Insight Judgment: Fair [facility] Assessment and Plan [id number] Encounter Date: Oct 04, 2018 [id number] Encounter Time: 10:30 [facility] Plan: Admit to Unit, Necessary Precautions, Individual/Group Therapy, Admin/Titrate Meds, Educate Patient Tobacco Medications: Started Multpiple Antipsychotics Used: No Problems: (1) Adjustment disorder with mixed anxiety and depressed mood (2) Persistent depressive disorder YOUSIF POSADA MD Oct 04, 2018 14:02
[2018-10-04] MEDS: AMITRIPTYLINE HCL 25 MG TAB PO SCH (21:25)
[2018-10-04] MEDS: INSULIN GLARGINE 100 U/ML 3 ML PEN SUBQ SCH (21:40)
[2018-10-05] MEDS: LEVOTHYROXINE SOD 0.125 MG TAB PO SCH (06:07)
[2018-10-05 06:15] VITALS: BP 83/44
[2018-10-05 07:57] VITALS: BP 101/58
[2018-10-05] MEDS: CITALOPRAM HYDROBROM 20 MG TAB PO SCH (08:11)
[2018-10-05] MEDS: ATORVASTATIN 10 MG TAB PO SCH (08:11)
[2018-10-05] MEDS: FOLIC ACID 1 MG TAB PO SCH (08:11)
[2018-10-05] MEDS: MAGNESIUM OXIDE 400 MG TAB PO SCH (08:12)
[2018-10-05] MEDS: PROPRANOLOL HCL 20 MG TAB PO SCH (08:12)
[2018-10-05] MEDS: MULTIVITAMINS TAB PO SCH (08:12)
[2018-10-05] MEDS: CHOLECALCIFEROL 1000 UNIT TAB PO SCH (08:12)
[2018-10-05] MEDS ORDERED: CHOL10005 PO (10:25)
[2018-10-05] MEDS: INSULIN HUM LISPRO 100 UN/ML 3 ML VIAL SUBQ PRN (12:06)
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
== END 2018-10-05 17:14 | disposition home or self-care (01) | DRG 882 ==
LOC: BHS 21:05
PROVIDERS: ADMIT Psychiatry & Neurology Psychiatry; ATTEND Psychiatry & Neurology Psychiatry
DX: F43.23 Adjustment disorder with mixed anxiety and depressed mood (principal); R45.851 Suicidal ideations; F34.1 Dysthymic disorder; M79.7 Fibromyalgia; E11.9 Type 2 diabetes mellitus without complications; G43.909 Migraine, unspecified, not intractable, without status migrainosus; L40.50 Arthropathic psoriasis, unspecified; E03.9 Hypothyroidism, unspecified; I10 Essential (primary) hypertension; E78.5 Hyperlipidemia, unspecified; Z59.6 Low income; Z56.0 Unemployment, unspecified; Z63.0 Problems in relationship with spouse or partner; Z91.5 Personal history of self-harm; Z88.5 Allergy status to narcotic agent; Z88.8 Allergy status to other drugs, medicaments and biological substances; Z79.4 Long term (current) use of insulin; Z62.810 Personal history of physical and sexual abuse in childhood
CPT/HCPCS: 36416; 82948; J1815; J8610